=== PATIENT | female | born 1950 | race Caucasian/White ===

== ENCOUNTER 2018-02-20 10:17 | Emergency (ER) | payer MEDICARE, OTHER | END 2018-02-20 11:40 | disposition home or self-care (01) | LOC: FTE 10:17 | DX: G47.00 Insomnia, unspecified (principal); F41.9 Anxiety disorder, unspecified; J44.9 Chronic obstructive pulmonary disease, unspecified; Z87.891 Personal history of nicotine dependence | CPT/HCPCS: 99283 ==

== ENCOUNTER 2018-05-22 00:59 | Inpatient (IN) | payer MEDICARE, OTHER ==
[2018-05-22 01:33] LABS: ADD MAN DIFF? NO
[2018-05-22 01:37] LABS: WHITE BLOOD COUNT 7.5 10^3/ul (4.8-10.8)
[2018-05-22 01:37] LABS: BASOPHILS % 0.3 % (0.0-2.0); EOSINOPHILS # 0.2 10^3/ul (0.0-0.5); EOSINOPHILS % 2.8 % (0.0-7.0); HEMATOCRIT 42.6 % (37.0-47.0); HEMOGLOBIN 12.8 g/dl (12.0-16.0); LYMPHOCYTES # 1.8 10^3/ul (0.8-2.9); LYMPHOCYTES % 23.9 % (15.0-51.0); MEAN CORPUSCULAR HEMOGLOBIN 30.5 pg (29.0-33.0); MEAN CORPUSCULAR VOLUME 101.7 fl (82.0-101.0); MEAN PLATELET VOLUME 11.3 fl (7.4-10.4); MONOCYTE # 0.5 10^3/ul (0.3-0.9); NEUTROPHIL # 4.9 10^3/ul (1.6-7.5); NEUTROPHILS % 65.6 % (39.0-77.0); PLATELET COUNT 129 10^3/UL (140-415); RED BLOOD COUNT 4.19 10^6/ul (4.20-5.40); RED CELL DISTRIBUTION WIDTH 12.3 % (11.5-14.5)
[2018-05-22] MEDS: morphine 2 MG INJ IV (01:38)
[2018-05-22] MEDS: DEXTROSE 50% 50 ML SYRINGE IV ×2 (01:38→14:00)
[2018-05-22 01:42] LABS: POSITIVE DIFF @See below
[2018-05-22] MEDS: DIAZEPAM 5 MG/ML SYG IV ×2 (02:11→03:38)
[2018-05-22 02:29] LABS: ALANINE AMINOTRANSFERASE 49 IU/L (13-69); ALBUMIN 4.4 g/dl (3.3-4.9); ALKALINE PHOSPHATASE 60 IU/L (42-121); ANION GAP 8 (5-13); ASPARTATE AMINO TRANSFERASE 75 IU/L (15-46); BILIRUBIN,INDIRECT 0.1 mg/dl (0-1.1); BILIRUBIN,TOTAL 0.1 mg/dl (0.2-1.3); BLOOD UREA NITROGEN 24 mg/dl (7-20); CALCIUM 9.6 mg/dl (8.4-10.2); CARBON DIOXIDE 35 mmol/L (21-31); CHLORIDE 97 mmol/L (97-110); CREATININE 1.07 mg/dl (0.44-1.00); Estimated GFR 51 mL/min (>60); GLUCOSE 92 mg/dl (70-220); SODIUM 140 mmol/L (135-144); TOTAL PROTEIN 8.4 g/dl (6.1-8.1)
[2018-05-22 02:31] LABS: ACETAMINOPHEN < 10.0 ug/ml (10.0-30.0); ETHANOL < 10.0 mg/dl (0-0); SALICYLATE < 1.0 mg/dl (5.0-30.0)
[2018-05-22 02:40] LABS: TROPONIN-I < 0.012 ng/ml (0.000-0.120)
[2018-05-22 05:23] LABS: ADD UMIC NO; UR ASCORBIC ACID NEGATIVE (NEGATIVE); UR BILIRUBIN (Dip) NEGATIVE (NEGATIVE); UR BLOOD (Dip) NEGATIVE (NEGATIVE); UR CLARITY CLEAR (CLEAR); UR COLOR STRAW (YELLOW); UR GLUCOSE (Dip) 1+ mg/dL (NEGATIVE); UR KETONES (Dip) NEGATIVE (NEGATIVE); UR LEUKOCYTE ESTERASE (Dip) NEGATIVE Leu/ul (NEGATIVE); UR NITRITE (Dip) NEGATIVE (NEGATIVE); UR SPECIFIC GRAVITY (Dip) 1.005 (1.003-1.030); UR TOTAL PROTEIN (Dip) NEGATIVE (NEGATIVE); UR UROBILINOGEN (Dip) NEGATIVE (NEGATIVE)
[2018-05-22 05:41] LABS: AMPHETAMINE/METHAMPHETAMINE Negative (NEGATIVE); BARBITURATES Negative (NEGATIVE); BENZODIAZEPINES Negative (NEGATIVE); CANNABINOIDS Positive (NEGATIVE); COCAINE Negative (NEGATIVE); OPIATES Positive (NEGATIVE)
[2018-05-22] MEDS ORDERED: NACL 0.9% 3 ML SYG IV (06:30)
[2018-05-22] MEDS ORDERED: ONDANSETRON 4 MG INJ IV (06:30)
[2018-05-22] MEDS ORDERED: HALOPERIDOL 5 MG INJ IM (06:30)
[2018-05-22 06:33] LABS: LACTIC ACID 2.3 mmol/L (0.5-2.0)
[2018-05-22] MEDS: SOD CHLORIDE 0.9% 1,000 ML IV (07:36)
[2018-05-22] MEDS ORDERED: NON-FORMULARY/PATIENT OWN MED (Salmeterol Xinaf/Fluticasone* (Advair*) 1 INH) INHALATION (09:00)
[2018-05-22] MEDS: HALOPERIDOL 5 MG INJ IM (09:48)
[2018-05-22] MEDS ORDERED: ALBUTEROL/IPRATROPIUM (NEB) 3 ML AMP HHN (10:00)
[2018-05-22 10:33] LABS: HAAIG REFLEX REFLEX FILED
[2018-05-22] MEDS: ARFORMOTEROL TARTRATE 15MCG/2 ML AMP INH ×2 (11:20→20:00)
[2018-05-22] MEDS: BUDESONIDE (NEB) 0.5MG/2ML AMP INH ×2 (11:20→20:00)
[2018-05-22 12:15] LABS: HEPATITIS B SURFACE ANTIGEN NEGATIVE (NEGATIVE)
[2018-05-22 12:36] LABS: HEPATITIS C VIRAL ANTIBODY REACTIVE (NEGATIVE)
[2018-05-22] MEDS: ALBUTEROL HFA 8 GM INHALER INH ×4 (13:15→20:08)
[2018-05-22 13:23] LABS: LACTIC ACID 1.9 mmol/L (0.5-2.0)
[2018-05-22] MEDS ORDERED: DEXTROSE 50% 50 ML SYRINGE (13:26)
[2018-05-22] MEDS: GLUCOSE GEL 15 GRAM TUBE BUCCAL (13:30)
[2018-05-22] MEDS ORDERED: GLUCOSE GEL 15 GRAM TUBE (13:42)
[2018-05-22] MEDS ORDERED: QUETIAPINE 25 MG TAB NGT (14:30)
[2018-05-22 14:39] LABS: HEPATITIS B CORE ANTIBODY REACTIVE (NEGATIVE)
[2018-05-22] MEDS ORDERED: DEXTROSE 50% 50 ML SYRINGE IV (15:30)
[2018-05-22] MEDS ORDERED: GLUCAGON 1 MG INJ IM (15:30)
[2018-05-22] MEDS ORDERED: GLUCOSE GEL 15 GRAM TUBE PO ×2 (15:30)
[2018-05-22] MEDS: DEXTROSE 5%-0.9% NACL 1,000 ML IV (15:38)
[2018-05-22] MEDS: LIDOCAINE 1% (MPF) 5 ML VIAL SC (16:30)
[2018-05-22] MEDS: IOHEXOL 300MG/ML 150 ML BTL (17:54)
[2018-05-22] MEDS: SOD CHLORIDE 0.9% 0 ML (17:54)
[2018-05-23] MEDS: DIPHENHYDRAMINE 50 MG INJ IV (01:21)
[2018-05-23] MEDS: DEXTROSE 5%-0.9% NACL 1,000 ML IV ×2 (04:20→05:32)
[2018-05-23 05:55] LABS: ADD MAN DIFF? NO
[2018-05-23 05:59] LABS: BASOPHILS % 0.3 % (0.0-2.0); EOSINOPHILS # 0.1 10^3/ul (0.0-0.5); EOSINOPHILS % 0.8 % (0.0-7.0); HEMOGLOBIN 11.1 g/dl (12.0-16.0); LYMPHOCYTES # 2.4 10^3/ul (0.8-2.9); LYMPHOCYTES % 21.8 % (15.0-51.0); MEAN CORPUSCULAR HEMOGLOBIN 30.9 pg (29.0-33.0); MEAN CORPUSCULAR HGB CONC 30.8 g/dl (32.0-37.0); MEAN CORPUSCULAR VOLUME 100.3 fl (82.0-101.0); MONOCYTE # 0.7 10^3/ul (0.3-0.9); MONOCYTES % 6.6 % (0.0-11.0); NEUTROPHIL # 7.7 10^3/ul (1.6-7.5); NEUTROPHILS % 70.2 % (39.0-77.0); PLATELET COUNT 144 10^3/UL (140-415); RED BLOOD COUNT 3.59 10^6/ul (4.20-5.40); RED CELL DISTRIBUTION WIDTH 12.4 % (11.5-14.5)
[2018-05-23] MEDS: DIAZEPAM 5 MG/ML SYG IV (06:23)
[2018-05-23 06:41] LABS: Estimated GFR > 60 mL/min (>60)
[2018-05-23 06:42] LABS: ALANINE AMINOTRANSFERASE 37 IU/L (13-69); ALBUMIN 3.3 g/dl (3.3-4.9); ALKALINE PHOSPHATASE 58 IU/L (42-121); ANION GAP 1 (5-13); ASPARTATE AMINO TRANSFERASE 46 IU/L (15-46); BILIRUBIN,INDIRECT 0.3 mg/dl (0-1.1); BILIRUBIN,TOTAL 0.3 mg/dl (0.2-1.3); BLOOD UREA NITROGEN 11 mg/dl (7-20); CARBON DIOXIDE 31 mmol/L (21-31); CHLORIDE 113 mmol/L (97-110); CREATININE 0.69 mg/dl (0.44-1.00); GLUCOSE 392 mg/dl (70-220); MAGNESIUM 1.4 mg/dl (1.7-2.5); POTASSIUM 3.2 mmol/L (3.5-5.1); SODIUM 145 mmol/L (135-144); TOTAL PROTEIN 6.3 g/dl (6.1-8.1)
[2018-05-23 06:49] LABS: HEMOGLOBIN A1C 5.5 % (0-5.9)
[2018-05-23] MEDS: ARFORMOTEROL TARTRATE 15MCG/2 ML AMP INH ×2 (08:51→21:25)
[2018-05-23] MEDS: BUDESONIDE (NEB) 0.5MG/2ML AMP INH ×2 (08:52→21:26)
[2018-05-23] MEDS: POTASSIUM CHLORIDE 20 MEQ POWDER FOR ORAL SOLN PO (09:06)
[2018-05-23] MEDS: ALBUTEROL HFA 8 GM INHALER INH ×2 (09:06→13:13)
[2018-05-23] MEDS: MAGNESIUM SULFATE 2 GM/50 ML 50 ML IVPB (09:38)
[2018-05-24] MEDS: DIPHENHYDRAMINE 50 MG INJ IV ×3 (02:50→19:38)
[2018-05-24 06:04] LABS: ADD MAN DIFF? NO
[2018-05-24 06:16] LABS: WHITE BLOOD COUNT 8.6 10^3/ul (4.8-10.8)
[2018-05-24 06:16] LABS: BASOPHILS % 0.4 % (0.0-2.0); EOSINOPHILS # 0.2 10^3/ul (0.0-0.5); EOSINOPHILS % 1.9 % (0.0-7.0); HEMATOCRIT 36.8 % (37.0-47.0); HEMOGLOBIN 11.8 g/dl (12.0-16.0); LYMPHOCYTES # 2.1 10^3/ul (0.8-2.9); MEAN CORPUSCULAR HEMOGLOBIN 30.9 pg (29.0-33.0); MEAN CORPUSCULAR HGB CONC 32.1 g/dl (32.0-37.0); MEAN CORPUSCULAR VOLUME 96.3 fl (82.0-101.0); MEAN PLATELET VOLUME 11.6 fl (7.4-10.4); MONOCYTE # 0.7 10^3/ul (0.3-0.9); MONOCYTES % 7.6 % (0.0-11.0); NEUTROPHIL # 5.6 10^3/ul (1.6-7.5); NEUTROPHILS % 64.9 % (39.0-77.0); PLATELET COUNT 122 10^3/UL (140-415); RED BLOOD COUNT 3.82 10^6/ul (4.20-5.40); RED CELL DISTRIBUTION WIDTH 12.7 % (11.5-14.5)
[2018-05-24 06:29] LABS: ANION GAP 7 (5-13); BLOOD UREA NITROGEN 10 mg/dl (7-20); CALCIUM 8.4 mg/dl (8.4-10.2); CARBON DIOXIDE 32 mmol/L (21-31); CREATININE 0.74 mg/dl (0.44-1.00); Estimated GFR > 60 mL/min (>60); GLUCOSE 92 mg/dl (70-220); MAGNESIUM 2.1 mg/dl (1.7-2.5); PHOSPHORUS 3.1 mg/dl (2.5-4.9); POTASSIUM 3.6 mmol/L (3.5-5.1); SODIUM 141 mmol/L (135-144)
[2018-05-24 06:41] LABS: CHLORIDE 102 mmol/L (97-110)
[2018-05-24] MEDS: DEXTROSE 5%-0.9% NACL 1,000 ML IV ×2 (06:43→18:58)
[2018-05-24 07:13] LABS: POSITIVE DIFF @See below
[2018-05-24] MEDS: ARFORMOTEROL TARTRATE 15MCG/2 ML AMP INH ×2 (08:00→19:58)
[2018-05-24] MEDS: BUDESONIDE (NEB) 0.5MG/2ML AMP INH ×2 (08:00→19:58)
[2018-05-24] MEDS: ALBUTEROL HFA 8 GM INHALER INH ×3 (08:47→21:09)
[2018-05-24] MEDS: ACETAMINOPHEN 325 MG TAB PO ×2 (12:02→21:14)
[2018-05-25] MEDS: ALBUTEROL HFA 8 GM INHALER INH ×3 (01:06→14:00)
[2018-05-25] MEDS: BUDESONIDE (NEB) 0.5MG/2ML AMP INH ×3 (01:35→19:52)
[2018-05-25] MEDS: DIPHENHYDRAMINE 50 MG INJ IV (05:20)
[2018-05-25 05:57] LABS: ADD MAN DIFF? NO
[2018-05-25 06:13] LABS: WHITE BLOOD COUNT 6.2 10^3/ul (4.8-10.8)
[2018-05-25 06:13] LABS: BASOPHILS % 0.3 % (0.0-2.0); EOSINOPHILS # 0.3 10^3/ul (0.0-0.5); EOSINOPHILS % 4.2 % (0.0-7.0); HEMATOCRIT 31.8 % (37.0-47.0); HEMOGLOBIN 9.7 g/dl (12.0-16.0); LYMPHOCYTES # 1.4 10^3/ul (0.8-2.9); LYMPHOCYTES % 23.1 % (15.0-51.0); MEAN CORPUSCULAR HEMOGLOBIN 30.5 pg (29.0-33.0); MEAN CORPUSCULAR HGB CONC 30.5 g/dl (32.0-37.0); MEAN PLATELET VOLUME 11.1 fl (7.4-10.4); MONOCYTE # 0.5 10^3/ul (0.3-0.9); MONOCYTES % 8.6 % (0.0-11.0); NEUTROPHIL # 3.9 10^3/ul (1.6-7.5); NEUTROPHILS % 63.5 % (39.0-77.0); PLATELET COUNT 104 10^3/UL (140-415); RED BLOOD COUNT 3.18 10^6/ul (4.20-5.40); RED CELL DISTRIBUTION WIDTH 12.8 % (11.5-14.5)
[2018-05-25 06:24] LABS: ANION GAP 6 (5-13); BLOOD UREA NITROGEN 7 mg/dl (7-20); CALCIUM 7.2 mg/dl (8.4-10.2); CARBON DIOXIDE 26 mmol/L (21-31); CHLORIDE 110 mmol/L (97-110); CREATININE 0.61 mg/dl (0.44-1.00); Estimated GFR > 60 mL/min (>60); GLUCOSE 356 mg/dl (70-220); POTASSIUM 3.1 mmol/L (3.5-5.1); SODIUM 142 mmol/L (135-144)
[2018-05-25] MEDS: ARFORMOTEROL TARTRATE 15MCG/2 ML AMP INH ×2 (09:22→19:52)
[2018-05-25] MEDS: DEXTROSE 5%-0.9% NACL 1,000 ML IV (09:40)
[2018-05-25] MEDS: METHADONE (1 MG/ML 5 ML PO UD SYG) PO (12:00)
[2018-05-25] MEDS: POTASSIUM CHLORIDE (SR) 20 MEQ TAB PO (12:00)
[2018-05-25] MEDS ORDERED: METHADONE (1 MG/ML 5 ML PO UD SYG) PO (12:30)
== END 2018-05-25 21:20 | disposition home or self-care (01) | DRG 917 ==
LOC: E/R 00:59 → ICU 05:39 → 6WM 17:46
PROVIDERS: Family Medicine
DX: T40.1X1A Poisoning by heroin, accidental (unintentional), initial encounter (principal); G92 Toxic encephalopathy; N17.9 Acute kidney failure, unspecified; F11.20 Opioid dependence, uncomplicated; F11.10 Opioid abuse, uncomplicated; Y92.002 Bathroom of unspecified non-institutional (private) residence as the place of occurrence of the external cause; Z78.1 Physical restraint status; F12.90 Cannabis use, unspecified, uncomplicated; J44.9 Chronic obstructive pulmonary disease, unspecified; Z87.891 Personal history of nicotine dependence; F41.9 Anxiety disorder, unspecified
CPT/HCPCS: 36569; 70450; 71045; 76937; 80048; 80053; 80307; 81003; 82962; 83036; 83605; 83735; 84100; 84443; 84484; 85025; 86704; 86709; 86803; 87340; 87522; 93005; 94640; 94664; 97116; 97162; 97530

== ENCOUNTER 2018-06-09 21:15 | Emergency (ER) | payer MEDICARE, OTHER ==
[2018-06-10 00:34] LABS: ADD MAN DIFF? NO
[2018-06-10 00:35] LABS: BASOPHILS % 0.3 % (0.0-2.0); HEMATOCRIT 45.9 % (37.0-47.0); HEMOGLOBIN 14.5 g/dl (12.0-16.0); LYMPHOCYTES # 1.5 10^3/ul (0.8-2.9); LYMPHOCYTES % 15.8 % (15.0-51.0); MEAN CORPUSCULAR HEMOGLOBIN 30.3 pg (29.0-33.0); MEAN CORPUSCULAR HGB CONC 31.6 g/dl (32.0-37.0); MEAN PLATELET VOLUME 9.9 fl (7.4-10.4); MONOCYTE # 0.5 10^3/ul (0.3-0.9); MONOCYTES % 5.4 % (0.0-11.0); NEUTROPHIL # 7.3 10^3/ul (1.6-7.5); NEUTROPHILS % 78.2 % (39.0-77.0); PLATELET COUNT 348 10^3/UL (140-415); RED BLOOD COUNT 4.78 10^6/ul (4.20-5.40); RED CELL DISTRIBUTION WIDTH 13.2 % (11.5-14.5)
[2018-06-10 00:35] LABS: WHITE BLOOD COUNT 9.4 10^3/ul (4.8-10.8)
[2018-06-10 01:01] LABS: ANION GAP 13 (5-13); BLOOD UREA NITROGEN 18 mg/dl (7-20); CARBON DIOXIDE 32 mmol/L (21-31); CHLORIDE 90 mmol/L (97-110); CREATININE 0.72 mg/dl (0.44-1.00); Estimated GFR > 60 mL/min (>60); GLUCOSE 105 mg/dl (70-220); POTASSIUM 4.1 mmol/L (3.5-5.1); SODIUM 135 mmol/L (135-144)
[2018-06-10] MEDS: OXYCODONE/ACETAMINOPHEN (10/325) TAB PO (01:39)
== END 2018-06-10 02:30 | disposition home or self-care (01) ==
LOC: E/R 06-10 02:30
DX: F11.23 Opioid dependence with withdrawal (principal); J44.9 Chronic obstructive pulmonary disease, unspecified; Z87.891 Personal history of nicotine dependence; Z79.82 Long term (current) use of aspirin
CPT/HCPCS: 71045; 80048; 85025; 93005; 99284-25

== ENCOUNTER 2018-06-10 03:18 | Emergency (ER) | payer SELFPAY, OTHER, MEDICARE | END 2018-06-10 04:02 | disposition left against medical advice (07) | LOC: E/R 03:18 | DX: Z53.21 Procedure and treatment not carried out due to patient leaving prior to being seen by health care provider (principal) ==

== ENCOUNTER 2018-07-14 20:31 | Inpatient (IN) | payer MEDICARE, OTHER ==
[2018-07-15] MEDS ORDERED: LORAZEPAM 2 MG INJ IV
[2018-07-15] MEDS ORDERED: BISACODYL (EC) 5 MG TAB PO
[2018-07-15] MEDS ORDERED: DOCUSATE SODIUM 100 MG CAP PO
[2018-07-15] MEDS ORDERED: ONDANSETRON 4 MG INJ IV
[2018-07-15] MEDS ORDERED: NACL 0.9% 3 ML SYG IV
[2018-07-15] MEDS ORDERED: METHADONE (1 MG/ML 5 ML PO UD SYG) PO (00:30)
[2018-07-15] MEDS: morphine 2 MG INJ IV (00:38)
[2018-07-15] MEDS: BACLOFEN 10 MG TAB PO ×3 (00:47→21:40)
[2018-07-15] MEDS: predniSONE 20 MG TAB PO ×2 (00:47→08:35)
[2018-07-15] MEDS: HALOPERIDOL 5 MG INJ IM ×2 (01:27→03:00)
[2018-07-15] MEDS: IPRATROPIUM (NEB) 0.5 MG/2.5 ML AMP HHN ×6 (02:16→21:46)
[2018-07-15] MEDS: LEVALBUTEROL (NEB) 1.25 MG/0.5 ML AMP HHN ×7 (02:16→21:47)
[2018-07-15] MEDS: DIPHENHYDRAMINE 50 MG INJ IM (03:00)
[2018-07-15] MEDS ORDERED: PENDING SANTYL ORDER FOR WOUND CARE XX (03:00)
[2018-07-15] MEDS: PANTOPRAZOLE (EC) 40 MG TAB PO (05:58)
[2018-07-15 06:40] LABS: WHITE BLOOD COUNT 11.4 10^3/ul (4.8-10.8)
[2018-07-15 06:40] LABS: ABNORMAL IP MESSAGE 1; HEMATOCRIT 36.2 % (37.0-47.0); HEMOGLOBIN 11.2 g/dl (12.0-16.0); MEAN CORPUSCULAR HEMOGLOBIN 31.6 pg (29.0-33.0); MEAN CORPUSCULAR HGB CONC 30.9 g/dl (32.0-37.0); MEAN CORPUSCULAR VOLUME 102.3 fl (82.0-101.0); MEAN PLATELET VOLUME 12.2 fl (7.4-10.4); NUCLEATED RED BLOOD CELLS% 0.6 /100WBC (0.0-0.0); PLATELET COUNT 80 10^3/UL (140-415); RED BLOOD COUNT 3.54 10^6/ul (4.20-5.40); RED CELL DISTRIBUTION WIDTH 17.2 % (11.5-14.5)
[2018-07-15 06:45] LABS: POSITIVE DIFF @See below
[2018-07-15 06:49] LABS: ADD MAN DIFF? YES
[2018-07-15 06:50] LABS: ALBUMIN 3.3 g/dl (3.3-4.9); ALBUMIN/GLOBULIN RATIO 1.26; ALKALINE PHOSPHATASE 82 IU/L (42-121); ANION GAP 8 (5-13); BILIRUBIN,INDIRECT 0.8 mg/dl (0-1.1); BILIRUBIN,TOTAL 0.8 mg/dl (0.2-1.3); BLOOD UREA NITROGEN 52 mg/dl (7-20); CALCIUM 7.8 mg/dl (8.4-10.2); CARBON DIOXIDE 30 mmol/L (21-31); CHLORIDE 103 mmol/L (97-110); CREATININE 1.22 mg/dl (0.44-1.00); Estimated GFR 44 mL/min (>60); GLUCOSE 122 mg/dl (70-220); POTASSIUM 4.2 mmol/L (3.5-5.1); SODIUM 141 mmol/L (135-144); TOTAL PROTEIN 5.9 g/dl (6.1-8.1)
[2018-07-15 07:28] LABS: ANISOCYTOSIS 1+ (0-0); BAND NEUTROPHILS #M 0.2 10^3/ul (0.0-0.6); BAND NEUTROPHILS % (M) 2 % (0-4); BURR CELLS 1+ (0-0); ERYTHROBLAST% (NRBC) (M) 2 % (0-0); HYPOCHROMASIA 1+ (0-0); LYMPHOCYTES #M 0.1 10^3/ul (0.8-2.9); LYMPHOCYTES % (M) 1 % (15-51); METAMYELOCYTES #M 0.1 10^3/ul (0.0-0.0); METAMYELOCYTES %M 1 % (0-0); OVALOCYTES 2+ (0-0); PLATELET ESTIMATE DECREASED; POIKILOCYTOSIS 2+ (0-0); POLYCHROMASIA 2+ (0-0); SEGMENTED NEUTROPHILS (M) % 96 % (39-77); SMUDGE%M 2 % (0-0); TARGET CELLS 1+ (0-0)
[2018-07-15 07:58] LABS: ALANINE AMINOTRANSFERASE 4549 IU/L (13-69); ASPARTATE AMINO TRANSFERASE 2259 IU/L (15-46)
[2018-07-15] MEDS: DOCUSATE SODIUM 100 MG CAP PO ×2 (08:35→21:39)
[2018-07-15] MEDS: AMLODIPINE 5 MG TAB PO (08:35)
[2018-07-15] MEDS: ASPIRIN (EC) 81 MG TAB PO (08:36)
[2018-07-15] MEDS: hydrOXYzine HCL 10 MG TAB PO ×3 (08:36→21:40)
[2018-07-15] MEDS: SERTRALINE 100 MG TAB PO (09:57)
[2018-07-15] MEDS: FLUTICASONE/VILANTEROL 100-25 INH (09:58)
[2018-07-15] MEDS: CEFEPIME 1GM/50 ML (PMX) 50 ML IVPB ×2 (09:58→21:40)
[2018-07-15 10:11] LABS: HAAIG REFLEX REFLEX FILED
[2018-07-15 10:37] LABS: AMMONIA < 9 umol/l (9-30)
[2018-07-15 10:37] LABS: INR 1.67; PARTIAL THROMBOPLASTIN TIME 27.3 Sec (23.0-35.0); PROTIME 19.8 Sec (11.9-14.9); PT RATIO 1.5
[2018-07-15 11:06] LABS: CREATINE KINASE 85 IU/L (23-200)
[2018-07-15 11:09] LABS: HEPATITIS B SURFACE ANTIGEN NEGATIVE (NEGATIVE)
[2018-07-15 11:19] LABS: CK INDEX 4.7; CK-MB 4.01 ng/ml (0.0-2.4)
[2018-07-15 11:27] LABS: HEPATITIS B CORE ANTIBODY NEGATIVE (NEGATIVE)
[2018-07-15 11:27] LABS: HEPATITIS B SURFACE ANTIBODY POSITIVE (NEGATIVE)
[2018-07-15 11:32] LABS: TROPONIN-I 0.448 ng/ml (0.000-0.120)
[2018-07-15] MEDS: RIFAXIMIN 550 MG TAB PO ×2 (12:19→21:40)
[2018-07-15 12:51] LABS: AMPHETAMINE/METHAMPHETAMINE Negative (NEGATIVE); BARBITURATES Negative (NEGATIVE); BENZODIAZEPINES Negative (NEGATIVE); CANNABINOIDS Negative (NEGATIVE); COCAINE Negative (NEGATIVE)
[2018-07-15 12:57] LABS: OPIATES Positive (NEGATIVE)
[2018-07-15 13:13] LABS: HEPATITIS C VIRAL ANTIBODY REACTIVE (NEGATIVE)
[2018-07-15] MEDS: PHYTONADIONE 10 MG in DEXTROSE 5% 50 ML IVPB (13:37)
[2018-07-15] MEDS: LACTULOSE 30ML CUP PO ×2 (13:37→21:40)
[2018-07-15 14:02] LABS: CREATINE KINASE 66 IU/L (23-200)
[2018-07-15 14:13] LABS: CK INDEX 5.3; CK-MB 3.51 ng/ml (0.0-2.4)
[2018-07-15 14:21] LABS: TROPONIN-I 0.407 ng/ml (0.000-0.120)
[2018-07-16] MEDS: IPRATROPIUM (NEB) 0.5 MG/2.5 ML AMP HHN ×6 (01:48→20:16)
[2018-07-16] MEDS: LEVALBUTEROL (NEB) 1.25 MG/0.5 ML AMP HHN ×6 (01:48→20:16)
[2018-07-16 05:14] LABS: ADD MAN DIFF? NO
[2018-07-16 05:19] LABS: ABNORMAL IP MESSAGE 1; BASOPHILS % 0.2 % (0.0-2.0); HEMATOCRIT 40.2 % (37.0-47.0); HEMOGLOBIN 12.4 g/dl (12.0-16.0); LYMPHOCYTES # 0.4 10^3/ul (0.8-2.9); LYMPHOCYTES % 3.5 % (15.0-51.0); MEAN CORPUSCULAR HEMOGLOBIN 31.1 pg (29.0-33.0); MEAN CORPUSCULAR HGB CONC 30.8 g/dl (32.0-37.0); MEAN CORPUSCULAR VOLUME 100.8 fl (82.0-101.0); MONOCYTE # 0.6 10^3/ul (0.3-0.9); MONOCYTES % 5.3 % (0.0-11.0); NEUTROPHILS % 90.5 % (39.0-77.0); NUCLEATED RED BLOOD CELLS% 0.3 /100WBC (0.0-0.0); PLATELET COUNT 113 10^3/UL (140-415); RED BLOOD COUNT 3.99 10^6/ul (4.20-5.40); RED CELL DISTRIBUTION WIDTH 17.2 % (11.5-14.5)
[2018-07-16 05:30] LABS: POSITIVE DIFF @See below
[2018-07-16 06:05] LABS: PHOSPHORUS 2.2 mg/dl (2.5-4.9)
[2018-07-16 06:05] LABS: MAGNESIUM 2.2 mg/dl (1.7-2.5)
[2018-07-16 06:07] LABS: ALBUMIN 3.1 g/dl (3.3-4.9); ALBUMIN/GLOBULIN RATIO 1.14; ALKALINE PHOSPHATASE 75 IU/L (42-121); ANION GAP 7 (5-13); ASPARTATE AMINO TRANSFERASE 741 IU/L (15-46); BILIRUBIN,INDIRECT 0.7 mg/dl (0-1.1); BILIRUBIN,TOTAL 0.7 mg/dl (0.2-1.3); BLOOD UREA NITROGEN 43 mg/dl (7-20); CARBON DIOXIDE 31 mmol/L (21-31); CHLORIDE 105 mmol/L (97-110); CREATININE 0.88 mg/dl (0.44-1.00); Estimated GFR > 60 mL/min (>60); GLUCOSE 134 mg/dl (70-220); POTASSIUM 3.8 mmol/L (3.5-5.1); SODIUM 143 mmol/L (135-144); TOTAL PROTEIN 5.8 g/dl (6.1-8.1)
[2018-07-16 06:20] LABS: ALANINE AMINOTRANSFERASE 2982 IU/L (13-69)
[2018-07-16] MEDS: PANTOPRAZOLE (EC) 40 MG TAB PO (06:26)
[2018-07-16] MEDS: LACTULOSE 30ML CUP PO ×3 (06:26→21:02)
[2018-07-16] MEDS: BACLOFEN 10 MG TAB PO ×2 (08:43→21:02)
[2018-07-16] MEDS: predniSONE 20 MG TAB PO (08:43)
[2018-07-16] MEDS: AMLODIPINE 5 MG TAB PO (08:43)
[2018-07-16] MEDS: ASPIRIN 81 MG TAB PO (08:44)
[2018-07-16] MEDS: FLUTICASONE/VILANTEROL 100-25 INH (08:44)
[2018-07-16] MEDS: RIFAXIMIN 550 MG TAB PO ×2 (08:44→21:00)
[2018-07-16] MEDS: CEFEPIME 1GM/50 ML (PMX) 50 ML IVPB ×2 (08:44→21:03)
[2018-07-16] MEDS: SERTRALINE 100 MG TAB PO (08:44)
[2018-07-16] MEDS: DOCUSATE SODIUM 100 MG CAP PO ×2 (08:44→21:02)
[2018-07-16] MEDS: hydrOXYzine HCL 10 MG TAB PO ×3 (08:44→21:00)
[2018-07-17] MEDS: IPRATROPIUM (NEB) 0.5 MG/2.5 ML AMP HHN ×6 (00:19→23:03)
[2018-07-17] MEDS: LEVALBUTEROL (NEB) 1.25 MG/0.5 ML AMP HHN ×6 (00:20→23:04)
[2018-07-17] MEDS: LACTULOSE 30ML CUP PO ×3 (06:00→22:00)
[2018-07-17 06:09] LABS: ADD MAN DIFF? NO
[2018-07-17] MEDS: PANTOPRAZOLE (EC) 40 MG TAB PO (06:16)
[2018-07-17 06:21] LABS: WHITE BLOOD COUNT 14.5 10^3/ul (4.8-10.8)
[2018-07-17 06:21] LABS: HEMATOCRIT 42.3 % (37.0-47.0); HEMOGLOBIN 12.9 g/dl (12.0-16.0); LYMPHOCYTES # 0.8 10^3/ul (0.8-2.9); LYMPHOCYTES % 5.4 % (15.0-51.0); MEAN CORPUSCULAR HGB CONC 30.5 g/dl (32.0-37.0); MEAN CORPUSCULAR VOLUME 101.7 fl (82.0-101.0); MEAN PLATELET VOLUME 12.4 fl (7.4-10.4); NEUTROPHIL # 12.6 10^3/ul (1.6-7.5); NEUTROPHILS % 87.2 % (39.0-77.0); NUCLEATED RED BLOOD CELLS% 0.2 /100WBC (0.0-0.0); PLATELET COUNT 109 10^3/UL (140-415); RED BLOOD COUNT 4.16 10^6/ul (4.20-5.40); RED CELL DISTRIBUTION WIDTH 17.4 % (11.5-14.5)
[2018-07-17 06:42] LABS: ALBUMIN 3.2 g/dl (3.3-4.9); ALBUMIN/GLOBULIN RATIO 1.18; ALKALINE PHOSPHATASE 78 IU/L (42-121); ANION GAP 6 (5-13); ASPARTATE AMINO TRANSFERASE 293 IU/L (15-46); BILIRUBIN,INDIRECT 0.8 mg/dl (0-1.1); BILIRUBIN,TOTAL 0.8 mg/dl (0.2-1.3); BLOOD UREA NITROGEN 36 mg/dl (7-20); CALCIUM 8.1 mg/dl (8.4-10.2); CARBON DIOXIDE 32 mmol/L (21-31); CHLORIDE 106 mmol/L (97-110); Estimated GFR > 60 mL/min (>60); GLUCOSE 104 mg/dl (70-220); POTASSIUM 3.7 mmol/L (3.5-5.1); SODIUM 144 mmol/L (135-144); TOTAL PROTEIN 5.9 g/dl (6.1-8.1)
[2018-07-17 07:01] LABS: PHOSPHORUS 1.4 mg/dl (2.5-4.9)
[2018-07-17 07:01] LABS: MAGNESIUM 2.3 mg/dl (1.7-2.5)
[2018-07-17 07:26] LABS: ALANINE AMINOTRANSFERASE 2132 IU/L (13-69)
[2018-07-17] MEDS: DOCUSATE SODIUM 100 MG CAP PO ×2 (09:16→20:29)
[2018-07-17] MEDS: hydrOXYzine HCL 10 MG TAB PO ×3 (09:16→20:28)
[2018-07-17] MEDS: RIFAXIMIN 550 MG TAB PO ×2 (09:16→20:29)
[2018-07-17] MEDS: SERTRALINE 100 MG TAB PO (09:16)
[2018-07-17] MEDS: ASPIRIN 81 MG TAB PO (09:16)
[2018-07-17] MEDS: CEFEPIME 1GM/50 ML (PMX) 50 ML IVPB ×2 (09:17→20:30)
[2018-07-17] MEDS: FLUTICASONE/VILANTEROL 100-25 INH (09:17)
[2018-07-17] MEDS: predniSONE 20 MG TAB PO (09:17)
[2018-07-17] MEDS: AMLODIPINE 5 MG TAB PO (09:17)
[2018-07-17] MEDS: BACLOFEN 10 MG TAB PO ×2 (09:17→20:29)
[2018-07-17] MEDS ORDERED: METHADONE 10 MG TAB PO (14:30)
[2018-07-17] MEDS: METHADONE (1 MG/ML 5 ML PO UD SYG) PO (15:31)
[2018-07-17] MEDS: POTASSIUM PHOSPHATE 15 MM in SOD CHLORIDE 0.9% 250 ML IVPB (16:29)
[2018-07-18] MEDS ORDERED: LORAZEPAM 2 MG INJ IV (02:00)
[2018-07-18] MEDS: HALOPERIDOL 5 MG INJ IM (02:00)
[2018-07-18] MEDS: PANTOPRAZOLE (EC) 40 MG TAB PO (05:31)
[2018-07-18 05:38] LABS: ADD MAN DIFF? NO
[2018-07-18] MEDS: LACTULOSE 30ML CUP PO ×3 (05:46→21:01)
[2018-07-18 05:48] LABS: BASOPHILS % 0.2 % (0.0-2.0); EOSINOPHILS % 0.3 % (0.0-7.0); HEMATOCRIT 42.1 % (37.0-47.0); HEMOGLOBIN 12.8 g/dl (12.0-16.0); LYMPHOCYTES # 1.3 10^3/ul (0.8-2.9); LYMPHOCYTES % 10.7 % (15.0-51.0); MEAN CORPUSCULAR HEMOGLOBIN 30.9 pg (29.0-33.0); MEAN CORPUSCULAR HGB CONC 30.4 g/dl (32.0-37.0); MEAN CORPUSCULAR VOLUME 101.7 fl (82.0-101.0); MEAN PLATELET VOLUME 11.9 fl (7.4-10.4); MONOCYTE # 0.8 10^3/ul (0.3-0.9); MONOCYTES % 6.8 % (0.0-11.0); NEUTROPHIL # 9.7 10^3/ul (1.6-7.5); NEUTROPHILS % 81.6 % (39.0-77.0); NUCLEATED RED BLOOD CELLS% 0.2 /100WBC (0.0-0.0); PLATELET COUNT 108 10^3/UL (140-415); RED BLOOD COUNT 4.14 10^6/ul (4.20-5.40)
[2018-07-18 05:48] LABS: WHITE BLOOD COUNT 11.9 10^3/ul (4.8-10.8)
[2018-07-18 06:32] LABS: ALBUMIN/GLOBULIN RATIO 1.15; ALKALINE PHOSPHATASE 68 IU/L (42-121); ANION GAP 4 (5-13); ASPARTATE AMINO TRANSFERASE 146 IU/L (15-46); BILIRUBIN,INDIRECT 1.2 mg/dl (0-1.1); BILIRUBIN,TOTAL 1.2 mg/dl (0.2-1.3); BLOOD UREA NITROGEN 26 mg/dl (7-20); CALCIUM 7.8 mg/dl (8.4-10.2); CARBON DIOXIDE 32 mmol/L (21-31); CHLORIDE 104 mmol/L (97-110); CREATININE 0.73 mg/dl (0.44-1.00); Estimated GFR > 60 mL/min (>60); GLUCOSE 75 mg/dl (70-220); POTASSIUM 4.3 mmol/L (3.5-5.1); SODIUM 140 mmol/L (135-144); TOTAL PROTEIN 5.6 g/dl (6.1-8.1)
[2018-07-18 06:37] LABS: HEMOGLOBIN A1C 5.3 % (0-5.9)
[2018-07-18] MEDS: IPRATROPIUM (NEB) 0.5 MG/2.5 ML AMP HHN ×2 (08:00→16:25)
[2018-07-18] MEDS: LEVALBUTEROL (NEB) 1.25 MG/0.5 ML AMP HHN ×2 (08:00→16:25)
[2018-07-18] MEDS: predniSONE 20 MG TAB PO (08:12)
[2018-07-18] MEDS: BACLOFEN 10 MG TAB PO ×2 (08:12→21:00)
[2018-07-18] MEDS: DOCUSATE SODIUM 100 MG CAP PO (08:12)
[2018-07-18] MEDS: CEFEPIME 1GM/50 ML (PMX) 50 ML IVPB (08:13)
[2018-07-18] MEDS: RIFAXIMIN 550 MG TAB PO ×2 (08:13→21:00)
[2018-07-18] MEDS: hydrOXYzine HCL 10 MG TAB PO ×4 (08:13→21:00)
[2018-07-18] MEDS: ASPIRIN (EC) 81 MG TAB PO (08:13)
[2018-07-18] MEDS: AMLODIPINE 5 MG TAB PO (08:13)
[2018-07-18] MEDS: SERTRALINE 50 MG TAB PO (08:13)
[2018-07-18] MEDS: FLUTICASONE/VILANTEROL 100-25 INH (08:14)
[2018-07-18 08:18] LABS: ALPHA FETOPROTEIN 4.95 IU/L (0.00-7.21)
[2018-07-18 09:02] LABS: ALANINE AMINOTRANSFERASE 1442 IU/L (13-69)
[2018-07-18] MEDS: METHADONE (1 MG/ML 5 ML PO UD SYG) PO (10:33)
[2018-07-18 10:51] LABS: MITOCHONDRIAL TB NEGATIVE (NEGATIVE); SMOOTH MUSCLE AB SCREEN NEGATIVE (NEGATIVE)
[2018-07-18 14:01] LABS: ANA SCREEN NEGATIVE (NEGATIVE)
[2018-07-18] MEDS: POTASSIUM PHOSPHATE 15 MM in SOD CHLORIDE 0.9% 250 ML IVPB (14:10)
[2018-07-18 14:17] LABS: FOLATE > 20.0 ng/ml (2.8-20.0)
[2018-07-19] MEDS ORDERED: HEPARIN 1000 UNITS/ML 10 ML INJ IV ×2 (01:00)
[2018-07-19] MEDS: IPRATROPIUM (NEB) 0.5 MG/2.5 ML AMP HHN ×3 (01:00→16:07)
[2018-07-19] MEDS: LEVALBUTEROL (NEB) 1.25 MG/0.5 ML AMP HHN ×3 (01:01→16:07)
[2018-07-19] MEDS: HEPARIN 1000 UNITS/ML 10 ML INJ IV (02:08)
[2018-07-19] MEDS: HEPARIN 25000 UNITS/250 ML 250 ML IV ×5 (02:09→19:00)
[2018-07-19 05:48] LABS: ADD MAN DIFF? NO
[2018-07-19 05:51] LABS: BASOPHILS % 0.2 % (0.0-2.0); EOSINOPHILS # 0.1 10^3/ul (0.0-0.5); EOSINOPHILS % 0.7 % (0.0-7.0); HEMATOCRIT 41.1 % (37.0-47.0); HEMOGLOBIN 12.8 g/dl (12.0-16.0); LYMPHOCYTES # 1.3 10^3/ul (0.8-2.9); LYMPHOCYTES % 9.4 % (15.0-51.0); MEAN CORPUSCULAR HEMOGLOBIN 31.3 pg (29.0-33.0); MEAN CORPUSCULAR HGB CONC 31.1 g/dl (32.0-37.0); MEAN CORPUSCULAR VOLUME 100.5 fl (82.0-101.0); MEAN PLATELET VOLUME 12.2 fl (7.4-10.4); MONOCYTE # 0.8 10^3/ul (0.3-0.9); MONOCYTES % 6.2 % (0.0-11.0); NEUTROPHIL # 11.2 10^3/ul (1.6-7.5); PLATELET COUNT 129 10^3/UL (140-415); RED BLOOD COUNT 4.09 10^6/ul (4.20-5.40); RED CELL DISTRIBUTION WIDTH 16.7 % (11.5-14.5)
[2018-07-19 05:51] LABS: WHITE BLOOD COUNT 13.5 10^3/ul (4.8-10.8)
[2018-07-19] MEDS: LACTULOSE 30ML CUP PO ×3 (06:00→22:41)
[2018-07-19] MEDS: LEVOFLOXACIN 750 MG TABLET PO (06:01)
[2018-07-19] MEDS: PANTOPRAZOLE (EC) 40 MG TAB PO (06:01)
[2018-07-19 06:16] LABS: AMMONIA 24 umol/l (9-30)
[2018-07-19 06:33] LABS: ALBUMIN/GLOBULIN RATIO 1.11; ALKALINE PHOSPHATASE 74 IU/L (42-121); ANION GAP 4 (5-13); ASPARTATE AMINO TRANSFERASE 98 IU/L (15-46); BILIRUBIN,INDIRECT 1.3 mg/dl (0-1.1); BILIRUBIN,TOTAL 1.3 mg/dl (0.2-1.3); BLOOD UREA NITROGEN 18 mg/dl (7-20); CARBON DIOXIDE 30 mmol/L (21-31); CHLORIDE 105 mmol/L (97-110); CREATININE 0.61 mg/dl (0.44-1.00); Estimated GFR > 60 mL/min (>60); GLUCOSE 80 mg/dl (70-220); POTASSIUM 4.1 mmol/L (3.5-5.1); SODIUM 139 mmol/L (135-144); TOTAL PROTEIN 5.7 g/dl (6.1-8.1)
[2018-07-19 06:41] LABS: ALANINE AMINOTRANSFERASE 1084 IU/L (13-69)
[2018-07-19] MEDS: SERTRALINE 50 MG TAB PO (08:26)
[2018-07-19] MEDS: RIFAXIMIN 550 MG TAB PO ×3 (08:26→20:42)
[2018-07-19] MEDS: ASPIRIN (EC) 81 MG TAB PO (08:26)
[2018-07-19] MEDS: predniSONE 20 MG TAB PO (08:26)
[2018-07-19] MEDS: AMLODIPINE 5 MG TAB PO (08:26)
[2018-07-19] MEDS: hydrOXYzine HCL 10 MG TAB PO ×3 (08:26→20:42)
[2018-07-19] MEDS: BACLOFEN 10 MG TAB PO ×2 (08:26→20:42)
[2018-07-19] MEDS: FLUTICASONE/VILANTEROL 100-25 INH (08:27)
[2018-07-19 09:15] LABS: PARTIAL THROMBOPLASTIN TIME 152.9 Sec (23.0-35.0)
[2018-07-19] MEDS: METHADONE (1 MG/ML 5 ML PO UD SYG) PO (09:50)
[2018-07-19 11:38] LABS: FOLATE > 20.0 ng/ml (2.8-20.0)
[2018-07-19 16:21] LABS: PARTIAL THROMBOPLASTIN TIME 54.4 Sec (23.0-35.0)
[2018-07-19 16:57] LABS: RAPID PLASMA REAGIN NONREACTIVE (NR)
[2018-07-19] MEDS: BISACODYL (EC) 5 MG TAB PO (18:32)
[2018-07-19] MEDS: APIXABAN 5 MG TABLET PO (20:42)
[2018-07-19] MEDS: OXYMETAZOLINE 0.05% 15 ML NAS SPRAY NASAL (20:43)
[2018-07-20] MEDS: LEVALBUTEROL (NEB) 1.25 MG/0.5 ML AMP HHN ×3 (00:12→16:12)
[2018-07-20] MEDS: IPRATROPIUM (NEB) 0.5 MG/2.5 ML AMP HHN ×3 (00:12→16:12)
[2018-07-20 01:45] LABS: PARTIAL THROMBOPLASTIN TIME 27.7 Sec (23.0-35.0)
[2018-07-20] MEDS: PANTOPRAZOLE (EC) 40 MG TAB PO (05:39)
[2018-07-20] MEDS: LACTULOSE 30ML CUP PO ×3 (05:41→21:58)
[2018-07-20 06:10] LABS: ADD MAN DIFF? NO
[2018-07-20 06:18] LABS: BASOPHILS % 0.1 % (0.0-2.0); EOSINOPHILS # 0.1 10^3/ul (0.0-0.5); EOSINOPHILS % 0.5 % (0.0-7.0); HEMATOCRIT 41.1 % (37.0-47.0); HEMOGLOBIN 12.7 g/dl (12.0-16.0); LYMPHOCYTES # 1.3 10^3/ul (0.8-2.9); LYMPHOCYTES % 9.7 % (15.0-51.0); MEAN CORPUSCULAR HEMOGLOBIN 30.5 pg (29.0-33.0); MEAN CORPUSCULAR HGB CONC 30.9 g/dl (32.0-37.0); MEAN CORPUSCULAR VOLUME 98.8 fl (82.0-101.0); MEAN PLATELET VOLUME 11.7 fl (7.4-10.4); MONOCYTE # 0.9 10^3/ul (0.3-0.9); MONOCYTES % 6.5 % (0.0-11.0); NEUTROPHIL # 11.3 10^3/ul (1.6-7.5); NEUTROPHILS % 82.8 % (39.0-77.0); PLATELET COUNT 157 10^3/UL (140-415); RED BLOOD COUNT 4.16 10^6/ul (4.20-5.40); RED CELL DISTRIBUTION WIDTH 16.5 % (11.5-14.5)
[2018-07-20 06:18] LABS: WHITE BLOOD COUNT 13.6 10^3/ul (4.8-10.8)
[2018-07-20 06:47] LABS: MAGNESIUM 1.7 mg/dl (1.7-2.5)
[2018-07-20 06:54] LABS: ALANINE AMINOTRANSFERASE 762 IU/L (13-69); ALBUMIN 3.1 g/dl (3.3-4.9); ALBUMIN/GLOBULIN RATIO 1.06; ALKALINE PHOSPHATASE 67 IU/L (42-121); ANION GAP 5 (5-13); ASPARTATE AMINO TRANSFERASE 70 IU/L (15-46); BILIRUBIN,INDIRECT 1.2 mg/dl (0-1.1); BILIRUBIN,TOTAL 1.2 mg/dl (0.2-1.3); BLOOD UREA NITROGEN 15 mg/dl (7-20); CALCIUM 8.3 mg/dl (8.4-10.2); CARBON DIOXIDE 34 mmol/L (21-31); CHLORIDE 99 mmol/L (97-110); CREATININE 0.63 mg/dl (0.44-1.00); Estimated GFR > 60 mL/min (>60); GLUCOSE 86 mg/dl (70-220); POTASSIUM 3.7 mmol/L (3.5-5.1); SODIUM 138 mmol/L (135-144)
[2018-07-20] MEDS: METHADONE (1 MG/ML 5 ML PO UD SYG) PO (10:45)
[2018-07-20] MEDS: FLUTICASONE/VILANTEROL 100-25 INH (10:46)
[2018-07-20] MEDS: hydrOXYzine HCL 10 MG TAB PO ×3 (10:47→21:00)
[2018-07-20] MEDS: BACLOFEN 10 MG TAB PO ×2 (10:47→21:55)
[2018-07-20] MEDS: predniSONE 20 MG TAB PO (10:47)
[2018-07-20] MEDS: APIXABAN 5 MG TABLET PO ×2 (10:47→21:56)
[2018-07-20] MEDS: OXYMETAZOLINE 0.05% 15 ML NAS SPRAY NASAL ×2 (10:47→21:00)
[2018-07-20] MEDS: SERTRALINE 50 MG TAB PO (10:48)
[2018-07-20] MEDS: AMLODIPINE 5 MG TAB PO (10:48)
[2018-07-20] MEDS: RIFAXIMIN 550 MG TAB PO (10:48)
[2018-07-20] MEDS: ACETAMINOPHEN 325 MG TAB PO (16:24)
[2018-07-20 19:46] LABS: NIL 0.08 IU/mL; QUANTIFERON(R)-TB GOLD NEGATIVE (NEGATIVE); TB-NIL <0.00 IU/mL; TB2-NIL <0.00 IU/mL
[2018-07-21] MEDS: LEVALBUTEROL (NEB) 1.25 MG/0.5 ML AMP HHN ×3 (00:42→16:08)
[2018-07-21] MEDS: IPRATROPIUM (NEB) 0.5 MG/2.5 ML AMP HHN ×3 (00:42→16:07)
[2018-07-21] MEDS: LACTULOSE 30ML CUP PO ×3 (06:00→21:11)
[2018-07-21] MEDS: PANTOPRAZOLE (EC) 40 MG TAB PO (06:00)
[2018-07-21] MEDS: BACLOFEN 10 MG TAB PO ×2 (09:27→21:10)
[2018-07-21] MEDS: RIFAXIMIN 550 MG TAB PO ×2 (09:27→21:10)
[2018-07-21] MEDS: hydrOXYzine HCL 10 MG TAB PO ×3 (09:27→21:10)
[2018-07-21] MEDS: CHOLECALCIFEROL 2,000 UNIT CAP PO (09:28)
[2018-07-21] MEDS: SERTRALINE 50 MG TAB PO (09:28)
[2018-07-21] MEDS: APIXABAN 5 MG TABLET PO ×2 (09:28→21:10)
[2018-07-21] MEDS: predniSONE 20 MG TAB PO (09:28)
[2018-07-21] MEDS: AMLODIPINE 5 MG TAB PO (09:28)
[2018-07-21] MEDS: FLUTICASONE/VILANTEROL 100-25 INH (09:29)
[2018-07-21] MEDS: OXYMETAZOLINE 0.05% 15 ML NAS SPRAY NASAL ×2 (09:29→21:11)
[2018-07-21] MEDS: METHADONE (1 MG/ML 5 ML PO UD SYG) PO (11:01)
[2018-07-21] MEDS: METHADONE 10 MG TAB PO (11:02)
[2018-07-21] MEDS ORDERED: LEVALBUTEROL (NEB) 1.25 MG/0.5 ML AMP HHN (21:00)
[2018-07-21] MEDS ORDERED: IPRATROPIUM (NEB) 0.5 MG/2.5 ML AMP HHN (21:00)
[2018-07-22] MEDS: PANTOPRAZOLE (EC) 40 MG TAB PO (05:41)
[2018-07-22] MEDS: LACTULOSE 30ML CUP PO ×3 (05:42→22:00)
[2018-07-22] MEDS: METHADONE 10 MG TAB PO (09:32)
[2018-07-22] MEDS: METHADONE (1 MG/ML 5 ML PO UD SYG) PO (09:33)
[2018-07-22] MEDS: BACLOFEN 10 MG TAB PO ×2 (09:34→20:43)
[2018-07-22] MEDS: SERTRALINE 50 MG TAB PO (09:34)
[2018-07-22] MEDS: CHOLECALCIFEROL 2,000 UNIT CAP PO (09:34)
[2018-07-22] MEDS: APIXABAN 5 MG TABLET PO ×2 (09:34→20:42)
[2018-07-22] MEDS: RIFAXIMIN 550 MG TAB PO ×2 (09:34→20:42)
[2018-07-22] MEDS: AMLODIPINE 5 MG TAB PO (09:35)
[2018-07-22] MEDS: FLUTICASONE/VILANTEROL 100-25 INH (09:35)
[2018-07-22] MEDS: OXYMETAZOLINE 0.05% 15 ML NAS SPRAY NASAL ×2 (09:35→20:42)
[2018-07-22] MEDS: hydrOXYzine HCL 10 MG TAB PO ×4 (09:37→11:22)
[2018-07-22] MEDS: ALPRAZOLAM 0.25 MG TAB PO (12:59)
[2018-07-22] MEDS: CALCIUM CARBONATE 1.25 GM TAB PO ×2 (12:59→20:42)
[2018-07-22] MEDS: DOCUSATE SODIUM 100 MG CAP PO (20:42)
[2018-07-23 05:23] LABS: ADD MAN DIFF? NO
[2018-07-23 05:28] LABS: WHITE BLOOD COUNT 10.2 10^3/ul (4.8-10.8)
[2018-07-23 05:28] LABS: BASOPHILS % 0.2 % (0.0-2.0); EOSINOPHILS # 0.2 10^3/ul (0.0-0.5); EOSINOPHILS % 1.6 % (0.0-7.0); HEMOGLOBIN 12.7 g/dl (12.0-16.0); LYMPHOCYTES # 1.6 10^3/ul (0.8-2.9); LYMPHOCYTES % 15.6 % (15.0-51.0); MEAN CORPUSCULAR HEMOGLOBIN 30.6 pg (29.0-33.0); MEAN CORPUSCULAR VOLUME 98.8 fl (82.0-101.0); MEAN PLATELET VOLUME 12.2 fl (7.4-10.4); MONOCYTE # 0.7 10^3/ul (0.3-0.9); MONOCYTES % 6.7 % (0.0-11.0); NEUTROPHIL # 7.7 10^3/ul (1.6-7.5); NEUTROPHILS % 75.6 % (39.0-77.0); PLATELET COUNT 182 10^3/UL (140-415); RED BLOOD COUNT 4.15 10^6/ul (4.20-5.40); RED CELL DISTRIBUTION WIDTH 17.1 % (11.5-14.5)
[2018-07-23] MEDS: PANTOPRAZOLE (EC) 40 MG TAB PO (05:35)
[2018-07-23] MEDS: LACTULOSE 30ML CUP PO ×3 (05:36→22:18)
[2018-07-23 05:59] LABS: PHOSPHORUS 4.5 mg/dl (2.5-4.9)
[2018-07-23 05:59] LABS: MAGNESIUM 1.7 mg/dl (1.7-2.5)
[2018-07-23 06:03] LABS: ALANINE AMINOTRANSFERASE 345 IU/L (13-69); ALBUMIN 3.1 g/dl (3.3-4.9); ALBUMIN/GLOBULIN RATIO 1.19; ALKALINE PHOSPHATASE 71 IU/L (42-121); ANION GAP 5 (5-13); ASPARTATE AMINO TRANSFERASE 55 IU/L (15-46); BILIRUBIN,INDIRECT 0.6 mg/dl (0-1.1); BILIRUBIN,TOTAL 0.6 mg/dl (0.2-1.3); BLOOD UREA NITROGEN 20 mg/dl (7-20); CALCIUM 8.9 mg/dl (8.4-10.2); CARBON DIOXIDE 30 mmol/L (21-31); CHLORIDE 105 mmol/L (97-110); CREATININE 0.69 mg/dl (0.44-1.00); Estimated GFR > 60 mL/min (>60); GLUCOSE 92 mg/dl (70-220); POTASSIUM 3.3 mmol/L (3.5-5.1); SODIUM 140 mmol/L (135-144); TOTAL PROTEIN 5.7 g/dl (6.1-8.1)
[2018-07-23] MEDS: OXYMETAZOLINE 0.05% 15 ML NAS SPRAY NASAL ×2 (08:41→20:07)
[2018-07-23] MEDS: FLUTICASONE/VILANTEROL 100-25 INH (08:42)
[2018-07-23] MEDS: METHADONE 10 MG TAB PO (08:43)
[2018-07-23] MEDS: METHADONE (1 MG/ML 5 ML PO UD SYG) PO (08:44)
[2018-07-23] MEDS: APIXABAN 5 MG TABLET PO ×2 (08:45→20:03)
[2018-07-23] MEDS: RIFAXIMIN 550 MG TAB PO ×2 (08:46→20:03)
[2018-07-23] MEDS: SERTRALINE 50 MG TAB PO (08:46)
[2018-07-23] MEDS: hydrOXYzine HCL 10 MG TAB PO ×3 (08:46→20:03)
[2018-07-23] MEDS: CHOLECALCIFEROL 2,000 UNIT CAP PO (08:46)
[2018-07-23] MEDS: BACLOFEN 10 MG TAB PO ×2 (08:46→20:03)
[2018-07-23] MEDS: DOCUSATE SODIUM 100 MG CAP PO ×2 (08:46→20:03)
[2018-07-23] MEDS: CALCIUM CARBONATE 1.25 GM TAB PO ×2 (08:46→20:03)
[2018-07-23] MEDS: AMLODIPINE 5 MG TAB PO (08:46)
[2018-07-23] MEDS: POTASSIUM CHLORIDE (SR) 20 MEQ TAB PO (12:24)
[2018-07-23] MEDS: ACETAMINOPHEN 325 MG TAB PO (16:56)
[2018-07-24] MEDS: PANTOPRAZOLE (EC) 40 MG TAB PO (05:34)
[2018-07-24] MEDS: LACTULOSE 30ML CUP PO ×3 (05:35→21:31)
[2018-07-24] MEDS: SERTRALINE 50 MG TAB PO (09:44)
[2018-07-24] MEDS: BACLOFEN 10 MG TAB PO ×2 (09:44→21:27)
[2018-07-24] MEDS: CALCIUM CARBONATE 1.25 GM TAB PO ×2 (09:44→21:26)
[2018-07-24] MEDS: APIXABAN 5 MG TABLET PO ×2 (09:44→21:27)
[2018-07-24] MEDS: hydrOXYzine HCL 10 MG TAB PO ×3 (09:44→21:27)
[2018-07-24] MEDS: CHOLECALCIFEROL 2,000 UNIT CAP PO (09:44)
[2018-07-24] MEDS: AMLODIPINE 5 MG TAB PO (09:45)
[2018-07-24] MEDS: RIFAXIMIN 550 MG TAB PO ×2 (09:45→21:26)
[2018-07-24] MEDS: METHADONE 10 MG TAB PO (09:45)
[2018-07-24] MEDS: DOCUSATE SODIUM 100 MG CAP PO ×2 (09:45→21:26)
[2018-07-24] MEDS: FLUTICASONE/VILANTEROL 100-25 INH ×2 (09:46→10:17)
[2018-07-24] MEDS: METHADONE (1 MG/ML 5 ML PO UD SYG) PO (09:46)
[2018-07-24] MEDS: OXYMETAZOLINE 0.05% 15 ML NAS SPRAY NASAL ×3 (09:46→21:00)
[2018-07-24] MEDS: ACETAMINOPHEN 325 MG TAB PO (16:00)
[2018-07-25] MEDS: PANTOPRAZOLE (EC) 40 MG TAB PO (06:00)
[2018-07-25] MEDS: LACTULOSE 30ML CUP PO ×4 (06:00→22:00)
[2018-07-25] MEDS: OXYMETAZOLINE 0.05% 15 ML NAS SPRAY NASAL ×2 (09:00→21:00)
[2018-07-25] MEDS: DOCUSATE SODIUM 100 MG CAP PO ×2 (09:15→21:07)
[2018-07-25] MEDS: hydrOXYzine HCL 10 MG TAB PO ×3 (09:15→21:08)
[2018-07-25] MEDS: RIFAXIMIN 550 MG TAB PO ×2 (09:15→21:08)
[2018-07-25] MEDS: BACLOFEN 10 MG TAB PO ×2 (09:15→21:07)
[2018-07-25] MEDS: SERTRALINE 50 MG TAB PO (09:16)
[2018-07-25] MEDS: CHOLECALCIFEROL 2,000 UNIT CAP PO (09:16)
[2018-07-25] MEDS: AMLODIPINE 5 MG TAB PO (09:16)
[2018-07-25] MEDS: METHADONE 10 MG TAB PO (09:16)
[2018-07-25] MEDS: CALCIUM CARBONATE 1.25 GM TAB PO ×2 (09:16→21:08)
[2018-07-25] MEDS: APIXABAN 5 MG TABLET PO ×2 (09:16→21:07)
[2018-07-25] MEDS: METHADONE (1 MG/ML 5 ML PO UD SYG) PO (09:17)
[2018-07-25] MEDS: ACETAMINOPHEN 325 MG TAB PO (14:13)
[2018-07-25] MEDS: ZOLPIDEM 5 MG TAB PO (23:32)
[2018-07-26 05:40] LABS: ADD MAN DIFF? NO
[2018-07-26] MEDS: PANTOPRAZOLE (EC) 40 MG TAB PO (05:46)
[2018-07-26] MEDS: LACTULOSE 30ML CUP PO ×3 (05:47→21:14)
[2018-07-26 05:53] LABS: BASOPHILS % 0.3 % (0.0-2.0); EOSINOPHILS # 0.2 10^3/ul (0.0-0.5); EOSINOPHILS % 2.4 % (0.0-7.0); HEMATOCRIT 39.7 % (37.0-47.0); HEMOGLOBIN 12.3 g/dl (12.0-16.0); LYMPHOCYTES # 1.4 10^3/ul (0.8-2.9); LYMPHOCYTES % 15.9 % (15.0-51.0); MEAN CORPUSCULAR HEMOGLOBIN 31.1 pg (29.0-33.0); MEAN CORPUSCULAR VOLUME 100.3 fl (82.0-101.0); MEAN PLATELET VOLUME 12.3 fl (7.4-10.4); MONOCYTE # 0.6 10^3/ul (0.3-0.9); MONOCYTES % 7.2 % (0.0-11.0); NEUTROPHIL # 6.6 10^3/ul (1.6-7.5); NEUTROPHILS % 73.8 % (39.0-77.0); PLATELET COUNT 161 10^3/UL (140-415); RED BLOOD COUNT 3.96 10^6/ul (4.20-5.40); RED CELL DISTRIBUTION WIDTH 16.4 % (11.5-14.5)
[2018-07-26 05:53] LABS: WHITE BLOOD COUNT 8.9 10^3/ul (4.8-10.8)
[2018-07-26 06:01] LABS: MAGNESIUM 1.6 mg/dl (1.7-2.5)
[2018-07-26 06:01] LABS: PHOSPHORUS 3.8 mg/dl (2.5-4.9)
[2018-07-26 06:28] LABS: ANION GAP 6 (5-13); BLOOD UREA NITROGEN 12 mg/dl (7-20); CALCIUM 9.1 mg/dl (8.4-10.2); CARBON DIOXIDE 29 mmol/L (21-31); CHLORIDE 104 mmol/L (97-110); CREATININE 0.67 mg/dl (0.44-1.00); Estimated GFR > 60 mL/min (>60); GLUCOSE 90 mg/dl (70-220); POTASSIUM 3.6 mmol/L (3.5-5.1); SODIUM 139 mmol/L (135-144)
[2018-07-26] MEDS: CALCIUM CARBONATE 1.25 GM TAB PO ×2 (08:54→21:09)
[2018-07-26] MEDS: DOCUSATE SODIUM 100 MG CAP PO ×2 (08:54→21:09)
[2018-07-26] MEDS: APIXABAN 5 MG TABLET PO ×2 (08:54→21:09)
[2018-07-26] MEDS: CHOLECALCIFEROL 2,000 UNIT CAP PO (08:54)
[2018-07-26] MEDS: SERTRALINE 50 MG TAB PO (08:54)
[2018-07-26] MEDS: hydrOXYzine HCL 10 MG TAB PO ×3 (08:54→21:09)
[2018-07-26] MEDS: RIFAXIMIN 550 MG TAB PO ×2 (08:55→21:09)
[2018-07-26] MEDS: BACLOFEN 10 MG TAB PO ×2 (08:55→21:09)
[2018-07-26] MEDS: METHADONE 10 MG TAB PO ×2 (08:55→09:41)
[2018-07-26] MEDS: AMLODIPINE 5 MG TAB PO (08:55)
[2018-07-26] MEDS: METHADONE (1 MG/ML 5 ML PO UD SYG) PO (08:56)
[2018-07-26] MEDS: OXYMETAZOLINE 0.05% 15 ML NAS SPRAY NASAL ×2 (09:00→21:00)
[2018-07-26] MEDS: FLUTICASONE/VILANTEROL 100-25 INH (09:00)
[2018-07-26] MEDS: MAGNESIUM SULFATE 2 GM/50 ML 50 ML IVPB (12:28)
[2018-07-27] MEDS: ZOLPIDEM 5 MG TAB PO ×2 (00:30→22:56)
[2018-07-27] MEDS: LACTULOSE 30ML CUP PO ×2 (06:23→14:00)
[2018-07-27] MEDS: PANTOPRAZOLE (EC) 40 MG TAB PO (06:23)
[2018-07-27] MEDS: METHADONE (1 MG/ML 5 ML PO UD SYG) PO (08:46)
[2018-07-27] MEDS: METHADONE 10 MG TAB PO (08:48)
[2018-07-27] MEDS: OXYMETAZOLINE 0.05% 15 ML NAS SPRAY NASAL ×2 (08:50→20:46)
[2018-07-27] MEDS: FLUTICASONE/VILANTEROL 100-25 INH (08:50)
[2018-07-27] MEDS: APIXABAN 5 MG TABLET PO ×2 (08:51→20:46)
[2018-07-27] MEDS: CHOLECALCIFEROL 2,000 UNIT CAP PO (08:51)
[2018-07-27] MEDS: hydrOXYzine HCL 10 MG TAB PO ×3 (08:51→20:45)
[2018-07-27] MEDS: RIFAXIMIN 550 MG TAB PO ×2 (08:51→20:46)
[2018-07-27] MEDS: BACLOFEN 10 MG TAB PO ×2 (08:51→20:45)
[2018-07-27] MEDS: SERTRALINE 50 MG TAB PO (08:51)
[2018-07-27] MEDS: CALCIUM CARBONATE 1.25 GM TAB PO ×2 (08:51→20:46)
[2018-07-27] MEDS: DOCUSATE SODIUM 100 MG CAP PO ×2 (08:51→20:45)
[2018-07-27] MEDS: AMLODIPINE 5 MG TAB PO (08:51)
[2018-07-27] MEDS: AL HYDROX/MG HYDROX/SIMETH 30 ML CUP PO (08:56)
[2018-07-27] MEDS: ACETAMINOPHEN 325 MG TAB PO (15:59)
[2018-07-27] MEDS: MAGNESIUM HYDROXIDE 30ML CUP PO (20:46)
[2018-07-28] MEDS: PANTOPRAZOLE (EC) 40 MG TAB PO (05:53)
[2018-07-28] MEDS: RIFAXIMIN 550 MG TAB PO ×2 (08:53→21:52)
[2018-07-28] MEDS: FLUTICASONE/VILANTEROL 100-25 INH (08:53)
[2018-07-28] MEDS: APIXABAN 5 MG TABLET PO ×2 (08:53→21:52)
[2018-07-28] MEDS: OXYMETAZOLINE 0.05% 15 ML NAS SPRAY NASAL ×2 (08:53→21:56)
[2018-07-28] MEDS: CALCIUM CARBONATE 1.25 GM TAB PO ×2 (08:53→21:51)
[2018-07-28] MEDS: METHADONE (1 MG/ML 5 ML PO UD SYG) PO (08:55)
[2018-07-28] MEDS: hydrOXYzine HCL 10 MG TAB PO ×3 (08:56→21:55)
[2018-07-28] MEDS: CHOLECALCIFEROL 2,000 UNIT CAP PO (08:56)
[2018-07-28] MEDS: SERTRALINE 50 MG TAB PO (08:56)
[2018-07-28] MEDS: METHADONE 10 MG TAB PO (08:56)
[2018-07-28] MEDS: BACLOFEN 10 MG TAB PO ×2 (08:57→21:51)
[2018-07-28] MEDS: AMLODIPINE 5 MG TAB PO (08:57)
[2018-07-28] MEDS: DOCUSATE SODIUM 100 MG CAP PO ×2 (08:58→21:52)
[2018-07-28] MEDS: ACETAMINOPHEN 325 MG TAB PO (19:48)
[2018-07-29] MEDS: ZOLPIDEM 5 MG TAB PO ×2 (00:17→23:41)
[2018-07-29] MEDS: PANTOPRAZOLE (EC) 40 MG TAB PO (05:50)
[2018-07-29] MEDS: MAGNESIUM HYDROXIDE 30ML CUP PO (05:53)
[2018-07-29] MEDS: AMLODIPINE 5 MG TAB PO (09:00)
[2018-07-29] MEDS: CHOLECALCIFEROL 2,000 UNIT CAP PO (10:27)
[2018-07-29] MEDS: CALCIUM CARBONATE 1.25 GM TAB PO ×2 (10:27→20:50)
[2018-07-29] MEDS: METHADONE 10 MG TAB PO (10:27)
[2018-07-29] MEDS: SERTRALINE 50 MG TAB PO (10:28)
[2018-07-29] MEDS: APIXABAN 5 MG TABLET PO ×2 (10:28→20:51)
[2018-07-29] MEDS: RIFAXIMIN 550 MG TAB PO ×2 (10:28→20:51)
[2018-07-29] MEDS: BACLOFEN 10 MG TAB PO ×2 (10:28→20:52)
[2018-07-29] MEDS: DOCUSATE SODIUM 100 MG CAP PO ×2 (10:28→20:50)
[2018-07-29] MEDS: hydrOXYzine HCL 10 MG TAB PO ×3 (10:29→21:21)
[2018-07-29] MEDS: METHADONE (1 MG/ML 5 ML PO UD SYG) PO (10:43)
[2018-07-29] MEDS: FLUTICASONE/VILANTEROL 100-25 INH (10:46)
[2018-07-29] MEDS: OXYMETAZOLINE 0.05% 15 ML NAS SPRAY NASAL ×2 (10:47→20:52)
[2018-07-29] MEDS: ACETAMINOPHEN 325 MG TAB PO (14:10)
[2018-07-30] MEDS: PANTOPRAZOLE (EC) 40 MG TAB PO (05:38)
[2018-07-30] MEDS: MAGNESIUM HYDROXIDE 30ML CUP PO (05:38)
[2018-07-30] MEDS: RIFAXIMIN 550 MG TAB PO ×2 (08:58→20:31)
[2018-07-30] MEDS: APIXABAN 5 MG TABLET PO ×2 (08:59→20:30)
[2018-07-30] MEDS: METHADONE (1 MG/ML 5 ML PO UD SYG) PO (08:59)
[2018-07-30] MEDS: METHADONE 10 MG TAB PO (08:59)
[2018-07-30] MEDS: FLUTICASONE/VILANTEROL 100-25 INH (09:00)
[2018-07-30] MEDS: hydrOXYzine HCL 10 MG TAB PO ×3 (09:00→20:31)
[2018-07-30] MEDS: OXYMETAZOLINE 0.05% 15 ML NAS SPRAY NASAL ×2 (09:00→20:31)
[2018-07-30] MEDS: SERTRALINE 50 MG TAB PO (09:00)
[2018-07-30] MEDS: AMLODIPINE 5 MG TAB PO (09:00)
[2018-07-30] MEDS: DOCUSATE SODIUM 100 MG CAP PO ×2 (09:00→20:30)
[2018-07-30] MEDS: CALCIUM CARBONATE 1.25 GM TAB PO ×2 (09:00→20:30)
[2018-07-30] MEDS: BACLOFEN 10 MG TAB PO ×2 (09:00→20:31)
[2018-07-30] MEDS: CHOLECALCIFEROL 2,000 UNIT CAP PO (09:00)
[2018-07-31] MEDS: ZOLPIDEM 5 MG TAB PO (00:30)
[2018-07-31] MEDS: PANTOPRAZOLE (EC) 40 MG TAB PO (06:36)
[2018-07-31] MEDS: DOCUSATE SODIUM 100 MG CAP PO (09:33)
[2018-07-31] MEDS: AMLODIPINE 5 MG TAB PO (09:36)
[2018-07-31] MEDS: CALCIUM CARBONATE 1.25 GM TAB PO ×2 (09:36→20:19)
[2018-07-31] MEDS: APIXABAN 5 MG TABLET PO ×2 (09:37→20:19)
[2018-07-31] MEDS: hydrOXYzine HCL 10 MG TAB PO ×3 (09:37→21:22)
[2018-07-31] MEDS: SERTRALINE 50 MG TAB PO (09:37)
[2018-07-31] MEDS: CHOLECALCIFEROL 2,000 UNIT CAP PO (09:37)
[2018-07-31] MEDS: METHADONE 10 MG TAB PO (09:37)
[2018-07-31] MEDS: BACLOFEN 10 MG TAB PO ×2 (09:37→21:22)
[2018-07-31] MEDS: OXYMETAZOLINE 0.05% 15 ML NAS SPRAY NASAL ×2 (09:37→20:23)
[2018-07-31] MEDS: RIFAXIMIN 550 MG TAB PO ×2 (09:37→21:22)
[2018-07-31] MEDS: METHADONE (1 MG/ML 5 ML PO UD SYG) PO (09:37)
[2018-07-31] MEDS: IOHEXOL 100 ML (09:38)
[2018-07-31] MEDS: SOD CHLORIDE 0.9% 100 ML (09:38)
[2018-07-31] MEDS: FLUTICASONE/VILANTEROL 100-25 INH (09:38)
[2018-07-31] MEDS: ACETAMINOPHEN 325 MG TAB PO (19:37)
[2018-07-31] MEDS: ALPRAZOLAM 0.25 MG TAB PO (20:19)
[2018-07-31] MEDS: LACTOBACILLUS RHAMNOSUS CAP PO (20:19)
[2018-08-01] MEDS: PANTOPRAZOLE (EC) 40 MG TAB PO (06:26)
[2018-08-01] MEDS: FLUTICASONE/VILANTEROL 100-25 INH ×2 (08:29→12:38)
[2018-08-01] MEDS: OXYMETAZOLINE 0.05% 15 ML NAS SPRAY NASAL ×2 (08:30→21:00)
[2018-08-01] MEDS: BACLOFEN 10 MG TAB PO ×2 (08:30→20:59)
[2018-08-01] MEDS: METHADONE (1 MG/ML 5 ML PO UD SYG) PO (08:30)
[2018-08-01] MEDS: METHADONE 10 MG TAB PO (08:30)
[2018-08-01] MEDS: DOCUSATE SODIUM 100 MG CAP PO ×2 (08:36→22:29)
[2018-08-01] MEDS: RIFAXIMIN 550 MG TAB PO ×2 (08:36→20:59)
[2018-08-01] MEDS: LACTOBACILLUS RHAMNOSUS CAP PO ×2 (08:36→20:59)
[2018-08-01] MEDS: hydrOXYzine HCL 10 MG TAB PO ×3 (08:36→20:59)
[2018-08-01] MEDS: SERTRALINE 50 MG TAB PO (08:36)
[2018-08-01] MEDS: CHOLECALCIFEROL 2,000 UNIT CAP PO (08:36)
[2018-08-01] MEDS: AMLODIPINE 5 MG TAB PO (08:36)
[2018-08-01] MEDS: CALCIUM CARBONATE 1.25 GM TAB PO ×2 (08:36→20:59)
[2018-08-01] MEDS: APIXABAN 5 MG TABLET PO ×2 (08:37→20:59)
[2018-08-01] MEDS ORDERED: GUAIFENESIN/DM 5ML CUP PO (14:30)
[2018-08-02] MEDS: PANTOPRAZOLE (EC) 40 MG TAB PO (06:14)
[2018-08-02] MEDS: OXYMETAZOLINE 0.05% 15 ML NAS SPRAY NASAL ×2 (09:00→20:47)
[2018-08-02] MEDS: CALCIUM CARBONATE 1.25 GM TAB PO ×2 (09:51→20:45)
[2018-08-02] MEDS: CHOLECALCIFEROL 2,000 UNIT CAP PO (09:51)
[2018-08-02] MEDS: BACLOFEN 10 MG TAB PO ×2 (09:51→21:45)
[2018-08-02] MEDS: SERTRALINE 50 MG TAB PO (09:51)
[2018-08-02] MEDS: RIFAXIMIN 550 MG TAB PO ×2 (09:51→21:45)
[2018-08-02] MEDS: hydrOXYzine HCL 10 MG TAB PO ×3 (09:51→21:45)
[2018-08-02] MEDS: DOCUSATE SODIUM 100 MG CAP PO ×2 (09:52→20:45)
[2018-08-02] MEDS: LACTOBACILLUS RHAMNOSUS CAP PO ×2 (09:52→21:45)
[2018-08-02] MEDS: APIXABAN 5 MG TABLET PO ×2 (09:52→20:45)
[2018-08-02] MEDS: AMLODIPINE 5 MG TAB PO (10:02)
[2018-08-02] MEDS: METHADONE 10 MG TAB PO (10:03)
[2018-08-02] MEDS: METHADONE (1 MG/ML 5 ML PO UD SYG) PO (10:04)
[2018-08-02] MEDS: FLUTICASONE/VILANTEROL 100-25 INH (10:05)
[2018-08-02] MEDS: ACETAMINOPHEN 325 MG TAB PO (13:50)
[2018-08-03] MEDS: PANTOPRAZOLE (EC) 40 MG TAB PO (06:14)
[2018-08-03] MEDS: hydrOXYzine HCL 10 MG TAB PO ×2 (09:23→12:56)
[2018-08-03] MEDS: METHADONE (1 MG/ML 5 ML PO UD SYG) PO (09:23)
[2018-08-03] MEDS: METHADONE 10 MG TAB PO (09:23)
[2018-08-03] MEDS: RIFAXIMIN 550 MG TAB PO (09:24)
[2018-08-03] MEDS: SERTRALINE 50 MG TAB PO (09:24)
[2018-08-03] MEDS: CALCIUM CARBONATE 1.25 GM TAB PO (09:24)
[2018-08-03] MEDS: BACLOFEN 10 MG TAB PO (09:24)
[2018-08-03] MEDS: LACTOBACILLUS RHAMNOSUS CAP PO (09:24)
[2018-08-03] MEDS: APIXABAN 5 MG TABLET PO (09:24)
[2018-08-03] MEDS: CHOLECALCIFEROL 2,000 UNIT CAP PO (09:24)
[2018-08-03] MEDS: DOCUSATE SODIUM 100 MG CAP PO (09:24)
[2018-08-03] MEDS: OXYMETAZOLINE 0.05% 15 ML NAS SPRAY NASAL (09:25)
[2018-08-03] MEDS: FLUTICASONE/VILANTEROL 100-25 INH (09:25)
[2018-08-03] MEDS: AMLODIPINE 5 MG TAB PO (09:25)
[2018-08-03] MEDS: MAGNESIUM HYDROXIDE 30ML CUP PO (09:35)
[2018-08-03] MEDS: traMADol 50 MG TAB PO (13:38)
== END 2018-08-03 16:55 | DRG 190 ==
LOC: 6WM 20:31 → 2NE 07-21 22:55 → 6WM 22:06
PROC: 3E0F7GC Introduction of Other Therapeutic Substance into Respiratory Tract, Via Natural or Artificial Opening (ICD-10-PCS; principal; 2018-07-14)
DX: J44.1 Chronic obstructive pulmonary disease with (acute) exacerbation (principal); I26.99 Other pulmonary embolism without acute cor pulmonale; I21.A1 Myocardial infarction type 2; J18.9 Pneumonia, unspecified organism; G93.41 Metabolic encephalopathy; J96.22 Acute and chronic respiratory failure with hypercapnia; J96.21 Acute and chronic respiratory failure with hypoxia; N17.9 Acute kidney failure, unspecified; F11.20 Opioid dependence, uncomplicated; D68.4 Acquired coagulation factor deficiency; F23 Brief psychotic disorder; J44.0 Chronic obstructive pulmonary disease with (acute) lower respiratory infection; B19.20 Unspecified viral hepatitis C without hepatic coma; D69.59 Other secondary thrombocytopenia; D50.9 Iron deficiency anemia, unspecified; F41.9 Anxiety disorder, unspecified; G89.29 Other chronic pain; I27.20 Pulmonary hypertension, unspecified; I12.9 Hypertensive chronic kidney disease with stage 1 through stage 4 chronic kidney disease, or unspecified chronic kidney disease; J20.9 Acute bronchitis, unspecified; K70.30 Alcoholic cirrhosis of liver without ascites; K72.90 Hepatic failure, unspecified without coma; K59.00 Constipation, unspecified; M19.172 Post-traumatic osteoarthritis, left ankle and foot; N18.9 Chronic kidney disease, unspecified; R62.7 Adult failure to thrive; R53.81 Other malaise; R13.10 Dysphagia, unspecified; R04.0 Epistaxis; S92.412A Displaced fracture of proximal phalanx of left great toe, initial encounter for closed fracture; S92.342A Displaced fracture of fourth metatarsal bone, left foot, initial encounter for closed fracture; W22.8XXA Striking against or struck by other objects, initial encounter; Z66 Do not resuscitate; Z87.891 Personal history of nicotine dependence; Z99.81 Dependence on supplemental oxygen; Z68.21 Body mass index [BMI] 21.0-21.9, adult; Z79.01 Long term (current) use of anticoagulants; Z79.82 Long term (current) use of aspirin
CPT/HCPCS: 71045; 71250; 71275; 73620; 76705; 80048; 80053; 80307; 82105; 82140; 82550; 82553; 82607; 82746; 83036; 83735; 84100; 84443; 84484; 85025; 85610; 85730; 86038; 86255; 86480; 86592; 86704; 86706; 86709; 86803; 87081; 87340; 87522; 92526; 92610; 93306; 93970; 94640; 94664; 97110; 97116; 97162; 97530

== ENCOUNTER 2018-10-26 00:42 | Inpatient (IN) | payer MEDICARE, OTHER ==
[2018-10-26] MEDS: SOD CHLORIDE 0.9% IV (02:02)
[2018-10-26] MEDS: CEFEPIME 2GM/50 ML (PMX) 50 ML IVPB (02:03)
[2018-10-26 02:18] LABS: AADO2 Arterial 391.9 mmHg (7.0-24.0); Allen Test ACCEPTAB; Arterial Base Excess -3.7 mmol/L (-3.0-3); Arterial Blood Gas Oxygen Sat 99.3 mmHG (95.0-98.0); Arterial COHb 0.3 % (0.0-3.0); Arterial Fraction of Oxyhgb 98.7 % (93.0-99.0); Arterial HCO3 22.9 mmol/L (22.0-26.0); Arterial MetHb 0.3 % (0.0-1.5); Arterial pCO2 47.6 mmhg (35-45); Blood Gas IEPAP 18/5; MODE MASK - BIPAP; Site Right Radial
[2018-10-26] MEDS: VANCOMYCIN 1 GM (PMX) 250 ML IVPB (02:44)
[2018-10-26] MEDS: DEXAMETHASONE 10 MG/ML 1 ML INJ IV (03:25)
[2018-10-26 03:31] LABS: ADD MAN DIFF? NO
[2018-10-26 03:49] LABS: LACTIC ACID 4.9 mmol/L (0.5-2.0)
[2018-10-26 03:51] LABS: INR 1.36; PROTIME 16.9 Sec (11.9-14.9); PT RATIO 1.3
[2018-10-26 03:52] LABS: PARTIAL THROMBOPLASTIN TIME 25.4 Sec (23.0-35.0)
[2018-10-26 03:55] LABS: ALANINE AMINOTRANSFERASE 160 IU/L (13-69); ALBUMIN 3.5 g/dl (3.3-4.9); ALKALINE PHOSPHATASE 70 IU/L (42-121); ANION GAP 11 (5-13); ASPARTATE AMINO TRANSFERASE 355 IU/L (15-46); BILIRUBIN,INDIRECT 0.6 mg/dl (0-1.1); BILIRUBIN,TOTAL 0.6 mg/dl (0.2-1.3); BLOOD UREA NITROGEN 72 mg/dl (7-20); CARBON DIOXIDE 25 mmol/L (21-31); CHLORIDE 114 mmol/L (97-110); GLUCOSE 97 mg/dl (70-220); SODIUM 150 mmol/L (135-144); TOTAL PROTEIN 6.4 g/dl (6.1-8.1)
[2018-10-26 04:00] LABS: Estimated GFR 24 mL/min (>60)
[2018-10-26] MEDS ORDERED: ACETAMINOPHEN 325 MG TAB PO (04:00)
[2018-10-26] MEDS ORDERED: ONDANSETRON 4 MG INJ IV (04:00)
[2018-10-26 04:01] LABS: CREATININE 2.07 mg/dl (0.44-1.00)
[2018-10-26 04:05] LABS: WHITE BLOOD COUNT 19.4 10^3/ul (4.8-10.8)
[2018-10-26 04:05] LABS: BASOPHILS % 0.2 % (0.0-2.0); HEMATOCRIT 40.4 % (37.0-47.0); HEMOGLOBIN 12.3 g/dl (12.0-16.0); LYMPHOCYTES # 1.6 10^3/ul (0.8-2.9); LYMPHOCYTES % 8.3 % (15.0-51.0); MEAN CORPUSCULAR HGB CONC 30.4 g/dl (32.0-37.0); MEAN CORPUSCULAR VOLUME 98.5 fl (82.0-101.0); MEAN PLATELET VOLUME 12.3 fl (7.4-10.4); MONOCYTE # 1.5 10^3/ul (0.3-0.9); MONOCYTES % 7.5 % (0.0-11.0); NEUTROPHIL # 16.1 10^3/ul (1.6-7.5); PLATELET COUNT 186 10^3/UL (140-415); RED CELL DISTRIBUTION WIDTH 14.7 % (11.5-14.5)
[2018-10-26 04:14] LABS: TROPONIN-I 0.571 ng/ml (0.000-0.120)
[2018-10-26 05:19] LABS: LACTIC ACID 2.1 mmol/L (0.5-2.0)
[2018-10-26] MEDS ORDERED: ALBUTEROL/IPRATROPIUM (NEB) 3 ML AMP HHN (07:30)
[2018-10-26] MEDS ORDERED: NACL 0.9% 3 ML SYG IV (07:30)
[2018-10-26] MEDS: SERTRALINE 100 MG TAB PO (09:00)
[2018-10-26] MEDS: DOCUSATE SODIUM 100 MG CAP PO ×2 (09:00→20:22)
[2018-10-26] MEDS: METHADONE (1 MG/ML 5 ML PO UD SYG) PO (09:00)
[2018-10-26] MEDS: BACLOFEN 10 MG TAB PO ×2 (09:00→20:23)
[2018-10-26] MEDS: AMLODIPINE 5 MG TAB PO (09:00)
[2018-10-26] MEDS: BUSPIRONE 10 MG TAB PO ×3 (09:00→20:22)
[2018-10-26] MEDS: FLUTICASONE/VILANTEROL 200-25 INH DEVICE INH (09:00)
[2018-10-26] MEDS: CALCIUM CARBONATE 1.25 GM TAB PO ×2 (09:00→20:23)
[2018-10-26] MEDS ORDERED: METHADONE (1 MG/ML 5 ML PO UD SYG) PO (09:00)
[2018-10-26] MEDS: RIFAXIMIN 550 MG TAB PO ×2 (09:00→20:23)
[2018-10-26] MEDS ORDERED: VANCOMYCIN IV PER PHARMACY XX (09:00)
[2018-10-26] MEDS ORDERED: APIXABAN 5 MG TABLET PO (09:00)
[2018-10-26 09:01] LABS: TROPONIN-I 0.359 ng/ml (0.000-0.120)
[2018-10-26 09:38] LABS: CK INDEX 0.9; CREATINE KINASE 14351 IU/L (23-200)
[2018-10-26] MEDS: APIXABAN 5 MG TABLET PO ×3 (10:30→21:23)
[2018-10-26 10:43] LABS: LACTIC ACID 2.1 mmol/L (0.5-2.0)
[2018-10-26] MEDS: DEXTROSE 5%-0.225% NACL 1,000 ML IV ×2 (10:49→21:24)
[2018-10-26] MEDS: PIPER-TAZO 3.375 GM IV (PMX) 100 ML IVPB ×2 (10:50→18:48)
[2018-10-26] MEDS: METHYLPREDNISOLONE 125 MG INJ IV (10:50)
[2018-10-26] MEDS ORDERED: ALBUTEROL HFA 8 GM INHALER INH (12:00)
[2018-10-26] MEDS: VANCOMYCIN 1 GM 250 ML IVPB (13:34)
[2018-10-26] MEDS ORDERED: LEVALBUTEROL (NEB) 0.63 MG/3 ML AMP HHN (14:00)
[2018-10-26 15:42] LABS: LACTIC ACID 2.9 mmol/L (0.5-2.0)
[2018-10-26 16:05] LABS: TROPONIN-I 0.349 ng/ml (0.000-0.120)
[2018-10-26 16:24] LABS: CK INDEX 0.7; CREATINE KINASE 13083 IU/L (23-200)
[2018-10-26] MEDS: LEVALBUTEROL (NEB) 0.63 MG/3 ML AMP HHN ×2 (17:00→20:12)
[2018-10-26 17:20] LABS: PROCALCITONIN 2.13 ng/mL (0.00-0.10)
[2018-10-26 22:44] LABS: LACTIC ACID 2.5 mmol/L (0.5-2.0)
[2018-10-27] MEDS: PIPER-TAZO 3.375 GM IV (PMX) 100 ML IVPB ×3 (00:20→18:29)
[2018-10-27] MEDS: LEVALBUTEROL (NEB) 0.63 MG/3 ML AMP HHN ×6 (01:34→20:02)
[2018-10-27] MEDS: DEXTROSE 5%-0.225% NACL 1,000 ML IV ×2 (05:09→09:17)
[2018-10-27] MEDS: PANTOPRAZOLE (EC) 40 MG TAB PO (05:09)
[2018-10-27 05:35] LABS: ABNORMAL IP MESSAGE 1; HEMATOCRIT 38.4 % (37.0-47.0); HEMOGLOBIN 11.9 g/dl (12.0-16.0); MEAN CORPUSCULAR HEMOGLOBIN 30.4 pg (29.0-33.0); NUCLEATED RED BLOOD CELLS% 0.1 /100WBC (0.0-0.0); PLATELET COUNT 191 10^3/UL (140-415); RED BLOOD COUNT 3.92 10^6/ul (4.20-5.40)
[2018-10-27 05:35] LABS: WHITE BLOOD COUNT 16.7 10^3/ul (4.8-10.8)
[2018-10-27 05:39] LABS: POSITIVE DIFF @See below
[2018-10-27 05:40] LABS: ADD MAN DIFF? YES
[2018-10-27 05:57] LABS: ALANINE AMINOTRANSFERASE 218 IU/L (13-69); ALKALINE PHOSPHATASE 63 IU/L (42-121); ANION GAP 11 (5-13); ASPARTATE AMINO TRANSFERASE 339 IU/L (15-46); BILIRUBIN,INDIRECT 0.5 mg/dl (0-1.1); BILIRUBIN,TOTAL 0.5 mg/dl (0.2-1.3); BLOOD UREA NITROGEN 94 mg/dl (7-20); CALCIUM 7.4 mg/dl (8.4-10.2); CARBON DIOXIDE 23 mmol/L (21-31); CHLORIDE 117 mmol/L (97-110); CHOL/HDL RATIO 3.3 RATIO; CHOLESTEROL 149 mg/dl (100-200); CREATININE 2.69 mg/dl (0.44-1.00); Estimated GFR 18 mL/min (>60); GLUCOSE 226 mg/dl (70-220); HDL CHOLESTEROL 44 mg/dl (35-98); LDL CHOLESTEROL,CALCULATED 81 mg/dl; MAGNESIUM 2.5 mg/dl (1.7-2.5); POTASSIUM 3.5 mmol/L (3.5-5.1); SODIUM 151 mmol/L (135-144); TRIGLYCERIDES 119 mg/dl (0-149)
[2018-10-27 06:03] LABS: ALANINE AMINOTRANSFERASE 218 IU/L (13-69); ALBUMIN 3.1 g/dl (3.3-4.9); ALKALINE PHOSPHATASE 64 IU/L (42-121); ASPARTATE AMINO TRANSFERASE 336 IU/L (15-46); BILIRUBIN,INDIRECT 0.5 mg/dl (0-1.1); BILIRUBIN,TOTAL 0.5 mg/dl (0.2-1.3); TOTAL PROTEIN 6.1 g/dl (6.1-8.1)
[2018-10-27 06:14] LABS: LACTIC ACID 2.7 mmol/L (0.5-2.0)
[2018-10-27 07:28] LABS: ANISOCYTOSIS 2+ (0-0); BAND NEUTROPHILS % (M) 54 % (0-4); BURR CELLS 3+ (0-0); ERYTHROBLAST% (NRBC) (M) 1 % (0-0); GIANT THROMBO% (M) 3 % (0-0); LYMPHOCYTES #M 1.5 10^3/ul (0.8-2.9); LYMPHOCYTES % (M) 9 % (15-51); METAMYELOCYTES #M 0.6 10^3/ul (0.0-0.0); METAMYELOCYTES %M 4 % (0-0); MONOCYTE #M 0.6 10^3/ul (0.3-0.9); MONOCYTES % (M) 4 % (0-11); MYELOCYTES #M 0.3 10^3/ul (0.0-0.0); MYELOCYTES % (M) 2 % (0-0); PLATELET ESTIMATE NORMAL; POIKILOCYTOSIS 3+ (0-0); POLYCHROMASIA 1+ (0-0); PROMYELOCYTES #M 0.5 10^3/ul (0-0); PROMYELOCYTES % (M) 3 % (0-0); REACTIVE LYMPHOCYTES #M 0.1 10^3/ul (0.0-0.0); REACTIVE LYMPHOCYTES% (M) 1 % (0-0); SEG NEUT #M 5.3 10^3/ul (1.6-7.5); SEGMENTED NEUTROPHILS (M) % 23 % (39-77); SMUDGE%M 8 % (0-0); SPHEROCYTES 1+ (0-0)
[2018-10-27] MEDS: RIFAXIMIN 550 MG TAB PO ×2 (09:00→21:26)
[2018-10-27] MEDS: BACLOFEN 10 MG TAB PO ×2 (09:00→21:26)
[2018-10-27] MEDS: DOCUSATE SODIUM 100 MG CAP PO ×2 (09:00→21:25)
[2018-10-27] MEDS: CALCIUM CARBONATE 1.25 GM TAB PO ×2 (09:00→21:26)
[2018-10-27] MEDS: BUSPIRONE 10 MG TAB PO ×2 (09:00→21:25)
[2018-10-27] MEDS: METHYLPREDNISOLONE 125 MG INJ IV (09:16)
[2018-10-27] MEDS: APIXABAN 5 MG TABLET PO ×2 (09:17→21:26)
[2018-10-27 10:11] LABS: AADO2 Arterial 100.2 mmHg (7.0-24.0); Allen Test ACCEPTAB; Arterial Base Excess -4.8 mmol/L (-3.0-3); Arterial Blood Gas Oxygen Sat 99.3 mmHG (95.0-98.0); Arterial COHb 0.1 % (0.0-3.0); Arterial HCO3 20.2 mmol/L (22.0-26.0); Arterial MetHb 0.2 % (0.0-1.5); Arterial pCO2 37.4 mmhg (35-45); Blood Gas IEPAP 18/5; Blood Gas PS 13; MODE MASK - BIPAP; Site Right Radial
[2018-10-27] MEDS: DEXTROSE 5% 1,000 ML IV (10:30)
[2018-10-27 10:32] LABS: LACTIC ACID 1.9 mmol/L (0.5-2.0)
[2018-10-27 12:47] LABS: TROPONIN-I 0.225 ng/ml (0.000-0.120)
[2018-10-27] MEDS: COLLAGENASE 5 GM (UD JAR) TOP (15:00)
[2018-10-27 18:34] LABS: TROPONIN-I 0.146 ng/ml (0.000-0.120)
[2018-10-27] MEDS: BALSAM PERU/CASTOR OIL 60 GM TUBE TOP (21:27)
[2018-10-27] MEDS: clonAZEPAM 0.5 MG TAB PO (21:55)
[2018-10-27] MEDS: ACETAMINOPHEN 325 MG TAB PO (21:56)
[2018-10-28] MEDS ORDERED: VANCOMYCIN 500 MG (PMX) 100 ML IVPB
[2018-10-28] MEDS: ZOLPIDEM 5 MG TAB PO (00:30)
[2018-10-28 01:17] LABS: TROPONIN-I 0.133 ng/ml (0.000-0.120)
[2018-10-28] MEDS: LEVALBUTEROL (NEB) 0.63 MG/3 ML AMP HHN ×6 (01:59→20:24)
[2018-10-28] MEDS: PIPER-TAZO 3.375 GM IV (PMX) 100 ML IVPB (02:10)
[2018-10-28 05:26] LABS: ABNORMAL IP MESSAGE 1; HEMATOCRIT 32.1 % (37.0-47.0); HEMOGLOBIN 10.1 g/dl (12.0-16.0); MEAN CORPUSCULAR HEMOGLOBIN 30.4 pg (29.0-33.0); MEAN CORPUSCULAR HGB CONC 31.5 g/dl (32.0-37.0); MEAN CORPUSCULAR VOLUME 96.7 fl (82.0-101.0); MEAN PLATELET VOLUME 12.1 fl (7.4-10.4); NUCLEATED RED BLOOD CELLS% 0.3 /100WBC (0.0-0.0); PLATELET COUNT 145 10^3/UL (140-415); RED BLOOD COUNT 3.32 10^6/ul (4.20-5.40)
[2018-10-28 05:26] LABS: WHITE BLOOD COUNT 14.3 10^3/ul (4.8-10.8)
[2018-10-28 05:38] LABS: ADD MAN DIFF? YES; POSITIVE DIFF @See below
[2018-10-28 05:44] LABS: ALANINE AMINOTRANSFERASE 235 IU/L (13-69); ALBUMIN 2.6 g/dl (3.3-4.9); ALKALINE PHOSPHATASE 62 IU/L (42-121); ASPARTATE AMINO TRANSFERASE 224 IU/L (15-46); BILIRUBIN,INDIRECT 0.3 mg/dl (0-1.1); BILIRUBIN,TOTAL 0.3 mg/dl (0.2-1.3); TOTAL PROTEIN 5.3 g/dl (6.1-8.1)
[2018-10-28 05:49] LABS: MAGNESIUM 2.2 mg/dl (1.7-2.5)
[2018-10-28 05:49] LABS: PHOSPHORUS 3.8 mg/dl (2.5-4.9)
[2018-10-28 05:56] LABS: ANION GAP 9 (5-13); BLOOD UREA NITROGEN 95 mg/dl (7-20); CALCIUM 7.2 mg/dl (8.4-10.2); CARBON DIOXIDE 22 mmol/L (21-31); CHLORIDE 110 mmol/L (97-110); CREATININE 2.75 mg/dl (0.44-1.00); Estimated GFR 17 mL/min (>60); GLUCOSE 195 mg/dl (70-220); SODIUM 141 mmol/L (135-144)
[2018-10-28 06:04] LABS: POTASSIUM 2.9 mmol/L (3.5-5.1)
[2018-10-28 06:33] LABS: VANCOMYCIN,RANDOM 14.5 ug/ml
[2018-10-28] MEDS: DOCUSATE SODIUM 100 MG CAP PO ×2 (09:00→21:34)
[2018-10-28] MEDS: BUSPIRONE 10 MG TAB PO ×2 (09:00→21:35)
[2018-10-28] MEDS: APIXABAN 5 MG TABLET PO ×2 (10:20→21:34)
[2018-10-28] MEDS: BACLOFEN 10 MG TAB PO ×2 (10:20→21:33)
[2018-10-28] MEDS: METHYLPREDNISOLONE 125 MG INJ IV (10:20)
[2018-10-28] MEDS: COLLAGENASE 5 GM (UD JAR) TOP (10:20)
[2018-10-28] MEDS: CALCIUM CARBONATE 1.25 GM TAB PO ×2 (10:21→21:33)
[2018-10-28] MEDS: RIFAXIMIN 550 MG TAB PO ×2 (10:21→21:33)
[2018-10-28] MEDS: FLUTICASONE/VILANTEROL 200-25 INH DEVICE INH (10:21)
[2018-10-28] MEDS: BALSAM PERU/CASTOR OIL 60 GM TUBE TOP ×2 (10:22→21:35)
[2018-10-28] MEDS: DEXTROSE 5% 1,000 ML IV ×4 (10:24→18:30)
[2018-10-28] MEDS: POTASSIUM CHLORIDE 100 ML IVPB (10:24)
[2018-10-28 10:45] LABS: ANISOCYTOSIS 2+ (0-0); BAND NEUTROPHILS #M 5.4 10^3/ul (0.0-0.6); BAND NEUTROPHILS % (M) 38 % (0-4); ECHINOCYTOSIS 3+ (0-0); ERYTHROBLAST% (NRBC) (M) 1 % (0-0); GIANT THROMBO% (M) 4 % (0-0); LYMPHOCYTES % (M) 14 % (15-51); MONOCYTE #M 0.7 10^3/ul (0.3-0.9); MONOCYTES % (M) 5 % (0-11); MYELOCYTES #M 0.1 10^3/ul (0.0-0.0); MYELOCYTES % (M) 1 % (0-0); PLATELET ESTIMATE NORMAL; POIKILOCYTOSIS 3+ (0-0); REACTIVE LYMPHOCYTES #M 0.5 10^3/ul (0.0-0.0); REACTIVE LYMPHOCYTES% (M) 4 % (0-0); SEG NEUT #M 6.2 10^3/ul (1.6-7.5); SEGMENTED NEUTROPHILS (M) % 38 % (39-77); SMUDGE%M 1 % (0-0)
[2018-10-28 11:17] LABS: TROPONIN-I 0.066 ng/ml (0.000-0.120)
[2018-10-28] MEDS: PIPER-TAZO 2.25 GM/NS 50 ML IVPB ×3 (13:25→23:57)
[2018-10-28] MEDS: INSULIN ASPART [NOVOLOG] 3 ML PEN SC ×3 (13:35→22:17)
[2018-10-28] MEDS: HYDROCODONE/APAP (5/325) TAB PO ×3 (15:26→23:57)
[2018-10-28 16:40] LABS: Allen Test ACCEPTAB; Arterial Base Excess -2.9 mmol/L (-3.0-3); Arterial Blood Gas Oxygen Sat 98.2 mmHG (95.0-98.0); Arterial COHb 0.1 % (0.0-3.0); Arterial HCO3 20.5 mmol/L (22.0-26.0); Arterial MetHb 0.1 % (0.0-1.5); Arterial pCO2 30.9 mmhg (35-45); MODE NASAL CANNULA; Site Right Radial
[2018-10-28] MEDS: VANCOMYCIN 500 MG (PMX) 100 ML IVPB (19:02)
[2018-10-28] MEDS: clonAZEPAM 0.5 MG TAB PO (21:35)
[2018-10-28] MEDS: METHADONE (1 MG/ML 5 ML PO UD SYG) PO (21:38)
[2018-10-29] MEDS: LEVALBUTEROL (NEB) 0.63 MG/3 ML AMP HHN ×6 (01:19→20:39)
[2018-10-29 01:34] LABS: TROPONIN-I 0.049 ng/ml (0.000-0.120)
[2018-10-29] MEDS: DEXTROSE 5% 1,000 ML IV (05:10)
[2018-10-29] MEDS: PIPER-TAZO 2.25 GM/NS 50 ML IVPB ×3 (05:11→19:24)
[2018-10-29 05:17] LABS: WHITE BLOOD COUNT 19.4 10^3/ul (4.8-10.8)
[2018-10-29 05:17] LABS: ABNORMAL IP MESSAGE 1; HEMATOCRIT 29.5 % (37.0-47.0); HEMOGLOBIN 9.3 g/dl (12.0-16.0); MEAN CORPUSCULAR HEMOGLOBIN 30.4 pg (29.0-33.0); MEAN CORPUSCULAR HGB CONC 31.5 g/dl (32.0-37.0); MEAN CORPUSCULAR VOLUME 96.4 fl (82.0-101.0); MEAN PLATELET VOLUME 12.2 fl (7.4-10.4); NUCLEATED RED BLOOD CELLS% 0.3 /100WBC (0.0-0.0); PLATELET COUNT 161 10^3/UL (140-415); RED BLOOD COUNT 3.06 10^6/ul (4.20-5.40); RED CELL DISTRIBUTION WIDTH 15.2 % (11.5-14.5)
[2018-10-29 05:20] LABS: POSITIVE DIFF @See below
[2018-10-29 05:21] LABS: ADD MAN DIFF? YES
[2018-10-29 05:51] LABS: PHOSPHORUS 2.5 mg/dl (2.5-4.9)
[2018-10-29 05:51] LABS: MAGNESIUM 2.1 mg/dl (1.7-2.5)
[2018-10-29 05:56] LABS: ALANINE AMINOTRANSFERASE 222 IU/L (13-69); ALBUMIN 2.5 g/dl (3.3-4.9); ALBUMIN/GLOBULIN RATIO 0.92; ALKALINE PHOSPHATASE 61 IU/L (42-121); ANION GAP 8 (5-13); ASPARTATE AMINO TRANSFERASE 146 IU/L (15-46); BILIRUBIN,INDIRECT 0.3 mg/dl (0-1.1); BILIRUBIN,TOTAL 0.3 mg/dl (0.2-1.3); BLOOD UREA NITROGEN 69 mg/dl (7-20); CALCIUM 8.2 mg/dl (8.4-10.2); CARBON DIOXIDE 26 mmol/L (21-31); CHLORIDE 109 mmol/L (97-110); CREATININE 1.56 mg/dl (0.44-1.00); Estimated GFR 33 mL/min (>60); GLUCOSE 185 mg/dl (70-220); SODIUM 143 mmol/L (135-144); TOTAL PROTEIN 5.2 g/dl (6.1-8.1)
[2018-10-29] MEDS: INSULIN ASPART [NOVOLOG] 3 ML PEN SC ×4 (07:49→21:00)
[2018-10-29] MEDS: POTASSIUM CHLORIDE 100 ML IVPB ×3 (08:03→14:47)
[2018-10-29] MEDS: METHADONE (1 MG/ML 5 ML PO UD SYG) PO (08:17)
[2018-10-29] MEDS: FAMOTIDINE 20 MG INJ IV (08:20)
[2018-10-29] MEDS: METHYLPREDNISOLONE 125 MG INJ IV (08:20)
[2018-10-29] MEDS: APIXABAN 5 MG TABLET PO ×2 (08:21→21:14)
[2018-10-29] MEDS: BACLOFEN 10 MG TAB PO ×2 (08:21→21:13)
[2018-10-29] MEDS: CALCIUM CARBONATE 1.25 GM TAB PO ×2 (08:21→21:14)
[2018-10-29] MEDS: RIFAXIMIN 550 MG TAB PO ×2 (08:21→21:13)
[2018-10-29] MEDS: DOCUSATE SODIUM 100 MG CAP PO ×2 (08:21→21:13)
[2018-10-29] MEDS: FLUTICASONE/VILANTEROL 200-25 INH DEVICE INH (08:22)
[2018-10-29] MEDS: COLLAGENASE 5 GM (UD JAR) TOP (08:22)
[2018-10-29] MEDS: BALSAM PERU/CASTOR OIL 60 GM TUBE TOP ×2 (08:22→21:26)
[2018-10-29] MEDS: BUSPIRONE 10 MG TAB PO ×3 (09:11→21:23)
[2018-10-29] MEDS: ONDANSETRON 4 MG INJ IV ×2 (09:36→21:38)
[2018-10-29 09:57] LABS: ANISOCYTOSIS 2+ (0-0); BAND NEUTROPHILS #M 4.2 10^3/ul (0.0-0.6); BAND NEUTROPHILS % (M) 22 % (0-4); BURR CELLS 2+ (0-0); GIANT THROMBO% (M) 1 % (0-0); LYMPHOCYTES #M 0.9 10^3/ul (0.8-2.9); LYMPHOCYTES % (M) 5 % (15-51); MONOCYTE #M 0.5 10^3/ul (0.3-0.9); MONOCYTES % (M) 3 % (0-11); PLATELET ESTIMATE NORMAL; POIKILOCYTOSIS 3+ (0-0); POLYCHROMASIA 2+ (0-0); SEG NEUT #M 14.4 10^3/ul (1.6-7.5); SEGMENTED NEUTROPHILS (M) % 70 % (39-77); SMUDGE%M 2 % (0-0); TARGET CELLS 1+ (0-0)
[2018-10-29 10:42] LABS: COLLECTION PERIOD 24 hrs
[2018-10-29] MEDS: HYDROCODONE/APAP (5/325) TAB PO ×2 (10:48→21:13)
[2018-10-29 11:29] LABS: VOLUME 3250 mls
[2018-10-29 14:06] LABS: ADD UMIC YES; UR ASCORBIC ACID NEGATIVE (NEGATIVE); UR BACTERIA FEW /HPF (NONE SEEN); UR BILIRUBIN (Dip) NEGATIVE (NEGATIVE); UR BLOOD (Dip) 3+ mg/dL (NEGATIVE); UR CLARITY CLEAR (CLEAR); UR COLOR YELLOW (YELLOW); UR GLUCOSE (Dip) NEGATIVE (NEGATIVE); UR KETONES (Dip) NEGATIVE (NEGATIVE); UR LEUKOCYTE ESTERASE (Dip) NEGATIVE Leu/ul (NEGATIVE); UR NITRITE (Dip) NEGATIVE (NEGATIVE); UR RBC 1 /HPF (0-5); UR SPECIFIC GRAVITY (Dip) 1.016 (1.003-1.030); UR TOTAL PROTEIN (Dip) 1+ mg/dl (NEGATIVE); UR UROBILINOGEN (Dip) NEGATIVE (NEGATIVE); UR WBC 1 /HPF (0-5)
[2018-10-29 14:18] LABS: CREATININE,URINE RANDOM 41.02 mg/dl (20-320)
[2018-10-30] MEDS: LEVALBUTEROL (NEB) 0.63 MG/3 ML AMP HHN ×6 (01:00→20:46)
[2018-10-30] MEDS: PIPER-TAZO 2.25 GM/NS 50 ML IVPB ×2 (01:12→05:34)
[2018-10-30] MEDS: clonAZEPAM 0.5 MG TAB PO ×2 (01:16→21:53)
[2018-10-30 05:14] LABS: ADD MAN DIFF? NO
[2018-10-30 05:17] LABS: ABNORMAL IP MESSAGE 1; BASOPHIL # 0.1 10^3/ul (0.0-0.1); BASOPHILS % 0.6 % (0.0-2.0); EOSINOPHILS % 0.1 % (0.0-7.0); HEMATOCRIT 26.1 % (37.0-47.0); HEMOGLOBIN 8.3 g/dl (12.0-16.0); LYMPHOCYTES # 1.5 10^3/ul (0.8-2.9); MEAN CORPUSCULAR HEMOGLOBIN 30.4 pg (29.0-33.0); MEAN CORPUSCULAR HGB CONC 31.8 g/dl (32.0-37.0); MEAN CORPUSCULAR VOLUME 95.6 fl (82.0-101.0); MEAN PLATELET VOLUME 12.2 fl (7.4-10.4); MONOCYTE # 1.8 10^3/ul (0.3-0.9); MONOCYTES % 10.6 % (0.0-11.0); NEUTROPHIL # 13.3 10^3/ul (1.6-7.5); NEUTROPHILS % 78.6 % (39.0-77.0); NUCLEATED RED BLOOD CELLS # 0.1 10^3/ul (0.0-0.0); NUCLEATED RED BLOOD CELLS% 0.5 /100WBC (0.0-0.0); PLATELET COUNT 173 10^3/UL (140-415); RED BLOOD COUNT 2.73 10^6/ul (4.20-5.40)
[2018-10-30 05:17] LABS: WHITE BLOOD COUNT 16.8 10^3/ul (4.8-10.8)
[2018-10-30 05:23] LABS: POSITIVE DIFF @See below
[2018-10-30 05:38] LABS: ALANINE AMINOTRANSFERASE 194 IU/L (13-69); ALBUMIN 2.3 g/dl (3.3-4.9); ALBUMIN/GLOBULIN RATIO 0.92; ALKALINE PHOSPHATASE 63 IU/L (42-121); ANION GAP 5 (5-13); ASPARTATE AMINO TRANSFERASE 98 IU/L (15-46); BILIRUBIN,INDIRECT 0.4 mg/dl (0-1.1); BILIRUBIN,TOTAL 0.4 mg/dl (0.2-1.3); BLOOD UREA NITROGEN 53 mg/dl (7-20); CALCIUM 8.4 mg/dl (8.4-10.2); CARBON DIOXIDE 27 mmol/L (21-31); CHLORIDE 111 mmol/L (97-110); CREATININE 1.15 mg/dl (0.44-1.00); Estimated GFR 47 mL/min (>60); GLUCOSE 120 mg/dl (70-220); MAGNESIUM 1.9 mg/dl (1.7-2.5); PHOSPHORUS 1.9 mg/dl (2.5-4.9); POTASSIUM 4.1 mmol/L (3.5-5.1); SODIUM 143 mmol/L (135-144); TOTAL PROTEIN 4.8 g/dl (6.1-8.1)
[2018-10-30] MEDS: VANCOMYCIN 500 MG (PMX) 100 ML IVPB (06:06)
[2018-10-30] MEDS: INSULIN ASPART [NOVOLOG] 3 ML PEN SC ×4 (07:35→21:00)
[2018-10-30] MEDS: ONDANSETRON 4 MG INJ IV (07:53)
[2018-10-30 08:02] LABS: ANISOCYTOSIS 1+ (0-0); BAND NEUTROPHILS #M 0.6 10^3/ul (0.0-0.6); BAND NEUTROPHILS % (M) 4 % (0-4); BURR CELLS 1+ (0-0); ERYTHROBLAST% (NRBC) (M) 1 % (0-0); GIANT THROMBO% (M) 1 % (0-0); LYMPHOCYTES #M 1.1 10^3/ul (0.8-2.9); LYMPHOCYTES % (M) 7 % (15-51); MONOCYTE #M 1.3 10^3/ul (0.3-0.9); MONOCYTES % (M) 8 % (0-11); OVALOCYTES 1+ (0-0); PLATELET ESTIMATE NORMAL; POIKILOCYTOSIS 1+ (0-0); POLYCHROMASIA 1+ (0-0); PROMYELOCYTES #M 0.3 10^3/ul (0-0); PROMYELOCYTES % (M) 2 % (0-0); SEG NEUT #M 13.4 10^3/ul (1.6-7.5); SEGMENTED NEUTROPHILS (M) % 79 % (39-77); SMUDGE%M 12 % (0-0)
[2018-10-30] MEDS: APIXABAN 5 MG TABLET PO ×2 (09:36→21:14)
[2018-10-30] MEDS: BACLOFEN 10 MG TAB PO ×2 (09:36→21:14)
[2018-10-30] MEDS: DOCUSATE SODIUM 100 MG CAP PO ×2 (09:36→21:14)
[2018-10-30] MEDS: METHYLPREDNISOLONE 125 MG INJ IV (09:37)
[2018-10-30] MEDS: FAMOTIDINE 20 MG INJ IV (09:37)
[2018-10-30] MEDS: RIFAXIMIN 550 MG TAB PO ×2 (09:37→21:14)
[2018-10-30] MEDS: BUSPIRONE 10 MG TAB PO ×2 (09:37→21:14)
[2018-10-30] MEDS: CALCIUM CARBONATE 1.25 GM TAB PO ×2 (09:37→21:14)
[2018-10-30] MEDS: BALSAM PERU/CASTOR OIL 60 GM TUBE TOP ×2 (09:38→21:54)
[2018-10-30] MEDS: FLUTICASONE/VILANTEROL 200-25 INH DEVICE INH (09:39)
[2018-10-30] MEDS: COLLAGENASE 5 GM (UD JAR) TOP (09:50)
[2018-10-30] MEDS: METHADONE (1 MG/ML 5 ML PO UD SYG) PO (09:51)
[2018-10-30] MEDS: POTASSIUM PHOSPHATE 30 MM in SOD CHLORIDE 0.9% 250 ML IVPB (10:49)
[2018-10-30] MEDS: LEVOFLOXACIN 500MG/D5W (PMX) 100 ML IVPB (12:04)
[2018-10-30] MEDS: ASCORBIC ACID 500 MG TAB PO (12:23)
[2018-10-30] MEDS: MULTIVITAMINS THERAPEUTIC TAB PO (12:23)
[2018-10-30] MEDS: ZINC SULFATE 220 MG CAP PO (12:23)
[2018-10-30] MEDS: THIAMINE 100 MG TAB PO (14:21)
[2018-10-30 20:15] LABS: OCCULT BLOOD STOOL POSITIVE (NEGATIVE)
[2018-10-31] MEDS: LEVALBUTEROL (NEB) 0.63 MG/3 ML AMP HHN ×6 (01:00→21:00)
[2018-10-31] MEDS: ZOLPIDEM 5 MG TAB PO (02:54)
[2018-10-31] MEDS: METHADONE (1 MG/ML 5 ML PO UD SYG) PO ×3 (04:10→21:21)
[2018-10-31 06:44] LABS: ADD MAN DIFF? NO
[2018-10-31 06:47] LABS: ABNORMAL IP MESSAGE 1; BASOPHIL # 0.1 10^3/ul (0.0-0.1); BASOPHILS % 0.6 % (0.0-2.0); EOSINOPHILS % 0.2 % (0.0-7.0); HEMOGLOBIN 8.5 g/dl (12.0-16.0); LYMPHOCYTES # 1.8 10^3/ul (0.8-2.9); LYMPHOCYTES % 9.6 % (15.0-51.0); MEAN CORPUSCULAR HGB CONC 31.5 g/dl (32.0-37.0); MEAN CORPUSCULAR VOLUME 95.4 fl (82.0-101.0); MEAN PLATELET VOLUME 12.4 fl (7.4-10.4); MONOCYTE # 1.8 10^3/ul (0.3-0.9); MONOCYTES % 9.4 % (0.0-11.0); NEUTROPHILS % 78.7 % (39.0-77.0); NUCLEATED RED BLOOD CELLS # 0.1 10^3/ul (0.0-0.0); NUCLEATED RED BLOOD CELLS% 0.7 /100WBC (0.0-0.0); PLATELET COUNT 189 10^3/UL (140-415); POSITIVE DIFF @See below; RED BLOOD COUNT 2.83 10^6/ul (4.20-5.40)
[2018-10-31 06:47] LABS: WHITE BLOOD COUNT 19.1 10^3/ul (4.8-10.8)
[2018-10-31 07:31] LABS: ANION GAP 6 (5-13); BLOOD UREA NITROGEN 39 mg/dl (7-20); CALCIUM 8.9 mg/dl (8.4-10.2); CARBON DIOXIDE 27 mmol/L (21-31); CHLORIDE 108 mmol/L (97-110); Estimated GFR > 60 mL/min (>60); GLUCOSE 109 mg/dl (70-220); SODIUM 141 mmol/L (135-144)
[2018-10-31] MEDS: INSULIN ASPART [NOVOLOG] 3 ML PEN SC ×4 (07:55→21:00)
[2018-10-31] MEDS: METHYLPREDNISOLONE 125 MG INJ IV (08:23)
[2018-10-31] MEDS: DOCUSATE SODIUM 100 MG CAP PO ×2 (08:24→21:02)
[2018-10-31] MEDS: MULTIVITAMINS THERAPEUTIC TAB PO (08:25)
[2018-10-31] MEDS: RIFAXIMIN 550 MG TAB PO ×2 (08:25→20:59)
[2018-10-31] MEDS: BUSPIRONE 10 MG TAB PO ×2 (08:25→20:59)
[2018-10-31] MEDS: CALCIUM CARBONATE 1.25 GM TAB PO ×2 (08:25→20:59)
[2018-10-31] MEDS: ASCORBIC ACID 500 MG TAB PO (08:25)
[2018-10-31] MEDS: ZINC SULFATE 220 MG CAP PO (08:25)
[2018-10-31] MEDS: THIAMINE 100 MG TAB PO (08:25)
[2018-10-31] MEDS: APIXABAN 5 MG TABLET PO ×2 (08:25→20:59)
[2018-10-31] MEDS: BACLOFEN 10 MG TAB PO ×2 (08:25→21:02)
[2018-10-31] MEDS: FLUTICASONE/VILANTEROL 200-25 INH DEVICE INH (08:26)
[2018-10-31] MEDS: FAMOTIDINE 20 MG INJ IV (08:26)
[2018-10-31] MEDS: COLLAGENASE 5 GM (UD JAR) TOP (08:27)
[2018-10-31] MEDS: BALSAM PERU/CASTOR OIL 60 GM TUBE TOP ×2 (08:27→21:44)
[2018-10-31] MEDS: DILTIAZEM (CD) 120 MG CAP PO (08:49)
[2018-10-31] MEDS: LEVOFLOXACIN 500MG/D5W (PMX) 100 ML IVPB (12:22)
[2018-11-01] MEDS: clonAZEPAM 0.5 MG TAB PO (01:00)
[2018-11-01] MEDS: LEVALBUTEROL (NEB) 0.63 MG/3 ML AMP HHN ×7 (01:00→21:08)
[2018-11-01] MEDS: ZOLPIDEM 5 MG TAB PO (02:31)
[2018-11-01 07:03] LABS: ADD MAN DIFF? NO
[2018-11-01 07:09] LABS: WHITE BLOOD COUNT 22.2 10^3/ul (4.8-10.8)
[2018-11-01 07:09] LABS: ABNORMAL IP MESSAGE 1; BASOPHIL # 0.1 10^3/ul (0.0-0.1); BASOPHILS % 0.6 % (0.0-2.0); EOSINOPHILS # 0.1 10^3/ul (0.0-0.5); EOSINOPHILS % 0.2 % (0.0-7.0); LYMPHOCYTES # 2.3 10^3/ul (0.8-2.9); LYMPHOCYTES % 10.4 % (15.0-51.0); MEAN CORPUSCULAR HEMOGLOBIN 30.2 pg (29.0-33.0); MEAN CORPUSCULAR HGB CONC 30.8 g/dl (32.0-37.0); MEAN CORPUSCULAR VOLUME 98.1 fl (82.0-101.0); MONOCYTE # 1.5 10^3/ul (0.3-0.9); MONOCYTES % 6.8 % (0.0-11.0); NEUTROPHIL # 17.9 10^3/ul (1.6-7.5); NEUTROPHILS % 80.8 % (39.0-77.0); NUCLEATED RED BLOOD CELLS # 0.1 10^3/ul (0.0-0.0); NUCLEATED RED BLOOD CELLS% 0.4 /100WBC (0.0-0.0); PLATELET COUNT 234 10^3/UL (140-415); RED BLOOD COUNT 2.65 10^6/ul (4.20-5.40); RED CELL DISTRIBUTION WIDTH 14.9 % (11.5-14.5)
[2018-11-01 07:20] LABS: POSITIVE DIFF @See below
[2018-11-01 07:34] LABS: ANION GAP 3 (5-13); BLOOD UREA NITROGEN 36 mg/dl (7-20); CALCIUM 8.3 mg/dl (8.4-10.2); CARBON DIOXIDE 27 mmol/L (21-31); CHLORIDE 105 mmol/L (97-110); CREATININE 0.86 mg/dl (0.44-1.00); Estimated GFR > 60 mL/min (>60); GLUCOSE 112 mg/dl (70-220); POTASSIUM 4.3 mmol/L (3.5-5.1); SODIUM 135 mmol/L (135-144)
[2018-11-01] MEDS: COLLAGENASE 5 GM (UD JAR) TOP (08:54)
[2018-11-01] MEDS: METHYLPREDNISOLONE 125 MG INJ IV (08:55)
[2018-11-01] MEDS: FLUTICASONE/VILANTEROL 200-25 INH DEVICE INH (08:55)
[2018-11-01] MEDS: DILTIAZEM (CD) 120 MG CAP PO (08:56)
[2018-11-01] MEDS: BUSPIRONE 10 MG TAB PO ×2 (08:56→20:17)
[2018-11-01] MEDS: RIFAXIMIN 550 MG TAB PO ×2 (08:56→20:17)
[2018-11-01] MEDS: BACLOFEN 10 MG TAB PO ×2 (08:56→20:17)
[2018-11-01] MEDS: MULTIVITAMINS THERAPEUTIC TAB PO (08:56)
[2018-11-01] MEDS: ZINC SULFATE 220 MG CAP PO (08:56)
[2018-11-01] MEDS: DOCUSATE SODIUM 100 MG CAP PO ×2 (08:56→21:00)
[2018-11-01] MEDS: INSULIN ASPART [NOVOLOG] 3 ML PEN SC ×4 (08:56→20:18)
[2018-11-01] MEDS: ASCORBIC ACID 500 MG TAB PO (08:57)
[2018-11-01] MEDS: APIXABAN 5 MG TABLET PO ×2 (08:57→20:17)
[2018-11-01] MEDS: FAMOTIDINE 20 MG TAB PO (08:57)
[2018-11-01] MEDS: CALCIUM CARBONATE 1.25 GM TAB PO ×2 (08:57→20:17)
[2018-11-01] MEDS: THIAMINE 100 MG TAB PO (08:57)
[2018-11-01] MEDS: BALSAM PERU/CASTOR OIL 60 GM TUBE TOP ×2 (09:01→20:18)
[2018-11-01] MEDS: LEVOFLOXACIN 500MG/D5W (PMX) 100 ML IVPB (12:38)
[2018-11-01] MEDS: METHADONE (1 MG/ML 5 ML PO UD SYG) PO (14:44)
[2018-11-01 20:16] LABS: PROCALCITONIN 0.16 ng/mL (0.00-0.10)
[2018-11-01] MEDS: HYDROCODONE/APAP (5/325) TAB PO (20:22)
[2018-11-01] MEDS: ALBUTEROL/IPRATROPIUM (NEB) 3 ML AMP HHN (21:08)
[2018-11-02] MEDS: LEVALBUTEROL (NEB) 0.63 MG/3 ML AMP HHN ×6 (01:00→20:10)
[2018-11-02] MEDS: ZOLPIDEM 5 MG TAB PO (01:31)
[2018-11-02] MEDS: METHADONE (1 MG/ML 5 ML PO UD SYG) PO ×3 (01:32→20:10)
[2018-11-02] MEDS: clonAZEPAM 0.5 MG TAB PO (03:32)
[2018-11-02] MEDS: CEPASTAT LOZENGE MT (03:32)
[2018-11-02] MEDS: INSULIN ASPART [NOVOLOG] 3 ML PEN SC ×4 (07:55→21:00)
[2018-11-02] MEDS: METHYLPREDNISOLONE 125 MG INJ IV (08:49)
[2018-11-02] MEDS: BUSPIRONE 10 MG TAB PO ×2 (08:50→21:41)
[2018-11-02] MEDS: DOCUSATE SODIUM 100 MG CAP PO ×2 (08:50→21:41)
[2018-11-02] MEDS: RIFAXIMIN 550 MG TAB PO ×2 (08:50→21:42)
[2018-11-02] MEDS: COLLAGENASE 5 GM (UD JAR) TOP (08:50)
[2018-11-02] MEDS: CALCIUM CARBONATE 1.25 GM TAB PO ×2 (08:50→21:42)
[2018-11-02] MEDS: ZINC SULFATE 220 MG CAP PO (08:50)
[2018-11-02] MEDS: ASCORBIC ACID 500 MG TAB PO (08:51)
[2018-11-02] MEDS: BACLOFEN 10 MG TAB PO ×2 (08:51→21:42)
[2018-11-02] MEDS: FAMOTIDINE 20 MG TAB PO (08:51)
[2018-11-02] MEDS: APIXABAN 5 MG TABLET PO ×2 (08:51→21:41)
[2018-11-02] MEDS: THIAMINE 100 MG TAB PO (08:51)
[2018-11-02] MEDS: DILTIAZEM (CD) 120 MG CAP PO (08:54)
[2018-11-02] MEDS: FLUTICASONE/VILANTEROL 200-25 INH DEVICE INH (08:55)
[2018-11-02] MEDS: MULTIVITAMINS THERAPEUTIC TAB PO (09:33)
[2018-11-02] MEDS: BALSAM PERU/CASTOR OIL 60 GM TUBE TOP ×2 (09:34→21:48)
[2018-11-02] MEDS: LEVOFLOXACIN 500MG/D5W (PMX) 100 ML IVPB (12:28)
[2018-11-03] MEDS: LEVALBUTEROL (NEB) 0.63 MG/3 ML AMP HHN ×6 (01:00→20:47)
[2018-11-03] MEDS: ZOLPIDEM 5 MG TAB PO (01:12)
[2018-11-03] MEDS: clonAZEPAM 0.5 MG TAB PO (02:04)
[2018-11-03 06:14] LABS: HEMATOCRIT 21.1 % (37.0-47.0); MEAN CORPUSCULAR HEMOGLOBIN 31.3 pg (29.0-33.0); MEAN CORPUSCULAR HGB CONC 33.2 g/dl (32.0-37.0); MEAN CORPUSCULAR VOLUME 94.2 fl (82.0-101.0); MEAN PLATELET VOLUME 11.8 fl (7.4-10.4); NUCLEATED RED BLOOD CELLS% 0.1 /100WBC (0.0-0.0); PLATELET COUNT 333 10^3/UL (140-415); RED BLOOD COUNT 2.24 10^6/ul (4.20-5.40); RED CELL DISTRIBUTION WIDTH 15.2 % (11.5-14.5)
[2018-11-03 06:14] LABS: WHITE BLOOD COUNT 21.1 10^3/ul (4.8-10.8)
[2018-11-03 06:23] LABS: ADD MAN DIFF? YES; POSITIVE DIFF @See below
[2018-11-03 06:45] LABS: OCCULT BLOOD STOOL POSITIVE (NEGATIVE)
[2018-11-03 07:15] LABS: ANION GAP 5 (5-13); BLOOD UREA NITROGEN 30 mg/dl (7-20); CALCIUM 7.4 mg/dl (8.4-10.2); CARBON DIOXIDE 26 mmol/L (21-31); CHLORIDE 102 mmol/L (97-110); CREATININE 0.72 mg/dl (0.44-1.00); Estimated GFR > 60 mL/min (>60); GLUCOSE 118 mg/dl (70-220); MAGNESIUM 1.6 mg/dl (1.7-2.5); PHOSPHORUS 3.8 mg/dl (2.5-4.9); POTASSIUM 3.9 mmol/L (3.5-5.1); SODIUM 133 mmol/L (135-144)
[2018-11-03] MEDS: LEVOFLOXACIN 500 MG TAB PO (07:21)
[2018-11-03] MEDS: METHADONE (1 MG/ML 5 ML PO UD SYG) PO ×2 (07:26→23:21)
[2018-11-03] MEDS: INSULIN ASPART [NOVOLOG] 3 ML PEN SC ×4 (08:00→20:37)
[2018-11-03] MEDS: ZINC SULFATE 220 MG CAP PO (09:00)
[2018-11-03] MEDS: RIFAXIMIN 550 MG TAB PO ×2 (09:00→20:33)
[2018-11-03 09:06] LABS: ANISOCYTOSIS 1+ (0-0); BAND NEUTROPHILS #M 6.3 10^3/ul (0.0-0.6); BAND NEUTROPHILS % (M) 30 % (0-4); HYPOCHROMASIA 1+ (0-0); LYMPHOCYTES #M 0.4 10^3/ul (0.8-2.9); LYMPHOCYTES % (M) 2 % (15-51); MONOCYTE #M 0.8 10^3/ul (0.3-0.9); MONOCYTES % (M) 4 % (0-11); PLATELET ESTIMATE NORMAL; POLYCHROMASIA 2+ (0-0); SEG NEUT #M 14.8 10^3/ul (1.6-7.5); SEGMENTED NEUTROPHILS (M) % 64 % (39-77); TOXIC GRANULATION 1+ (0-0)
[2018-11-03] MEDS: HYDROCODONE/APAP (5/325) TAB PO (09:38)
[2018-11-03] MEDS: METHYLPREDNISOLONE 125 MG INJ IV (09:39)
[2018-11-03] MEDS: MULTIVITAMINS THERAPEUTIC TAB PO (09:43)
[2018-11-03] MEDS: DOCUSATE SODIUM 100 MG CAP PO ×2 (09:43→20:33)
[2018-11-03] MEDS: FAMOTIDINE 20 MG TAB PO (09:44)
[2018-11-03] MEDS: ASCORBIC ACID 500 MG TAB PO (09:45)
[2018-11-03] MEDS: BACLOFEN 10 MG TAB PO ×2 (09:45→20:33)
[2018-11-03] MEDS: APIXABAN 5 MG TABLET PO (09:45)
[2018-11-03] MEDS: THIAMINE 100 MG TAB PO (09:45)
[2018-11-03] MEDS: COLLAGENASE 5 GM (UD JAR) TOP (09:50)
[2018-11-03] MEDS: BUSPIRONE 10 MG TAB PO ×3 (11:10→20:33)
[2018-11-03] MEDS: DILTIAZEM (CD) 120 MG CAP PO ×2 (11:11→11:41)
[2018-11-03] MEDS: CALCIUM CARBONATE 1.25 GM TAB PO ×3 (11:11→20:33)
[2018-11-03] MEDS: FLUTICASONE/VILANTEROL 200-25 INH DEVICE INH (11:39)
[2018-11-03] MEDS: BALSAM PERU/CASTOR OIL 60 GM TUBE TOP ×2 (11:43→20:37)
[2018-11-03] MEDS: MAGNESIUM SULFATE 2 GM/50 ML 50 ML IVPB ×2 (11:49→12:22)
[2018-11-03] MEDS: IOHEXOL 14.3 MG(I)/ML (ADULT) BTL PO (12:06)
[2018-11-03] MEDS: SOD CHLORIDE 0.9% 100 ML (14:58)
[2018-11-03] MEDS: IOHEXOL 300MG/ML 150 ML BTL (14:58)
[2018-11-03] MEDS: metroNIDAZOLE 500 MG/NS (PMX) 100 ML IVPB ×2 (16:07→22:03)
[2018-11-03 18:06] LABS: IMMEDIATE SPIN CROSSMATCH 1 1
[2018-11-03] MEDS: SOD CHLORIDE 0.9% 250 ML IV* (18:26)
[2018-11-03] MEDS: DEXTROSE 5%-0.45% NACL 1,000 ML IV (23:13)
[2018-11-04] MEDS: INSULIN ASPART [NOVOLOG] 3 ML PEN SC ×6 (01:00→20:52)
[2018-11-04] MEDS: LEVALBUTEROL (NEB) 0.63 MG/3 ML AMP HHN ×5 (01:00→21:00)
[2018-11-04] MEDS: ZOLPIDEM 5 MG TAB PO (01:16)
[2018-11-04] MEDS ORDERED: VANCOMYCIN IV PER PHARMACY XX (02:30)
[2018-11-04] MEDS: MEROPENEM 1 GM/50ML(PMX) 50 ML IVPB ×3 (02:48→17:20)
[2018-11-04] MEDS: LORAZEPAM 2 MG INJ IV ×4 (02:49→20:51)
[2018-11-04] MEDS: VANCOMYCIN 1 GM 250 ML IVPB (03:47)
[2018-11-04 04:04] LABS: ABNORMAL IP MESSAGE 1; HEMATOCRIT 27.2 % (37.0-47.0); HEMOGLOBIN 9.2 g/dl (12.0-16.0); MEAN CORPUSCULAR HEMOGLOBIN 30.7 pg (29.0-33.0); MEAN CORPUSCULAR HGB CONC 33.8 g/dl (32.0-37.0); MEAN CORPUSCULAR VOLUME 90.7 fl (82.0-101.0); NUCLEATED RED BLOOD CELLS% 0.1 /100WBC (0.0-0.0); RED CELL DISTRIBUTION WIDTH 15.6 % (11.5-14.5)
[2018-11-04 04:04] LABS: WHITE BLOOD COUNT 17.2 10^3/ul (4.8-10.8)
[2018-11-04 04:15] LABS: PLATELET COUNT 247 10^3/UL (140-415); POSITIVE DIFF @See below
[2018-11-04 04:19] LABS: ADD MAN DIFF? YES
[2018-11-04 04:20] LABS: ALANINE AMINOTRANSFERASE 78 IU/L (13-69); ALBUMIN 2.3 g/dl (3.3-4.9); ALBUMIN/GLOBULIN RATIO 0.88; ALKALINE PHOSPHATASE 52 IU/L (42-121); ANION GAP 9 (5-13); ASPARTATE AMINO TRANSFERASE 34 IU/L (15-46); BILIRUBIN,INDIRECT 0.6 mg/dl (0-1.1); BILIRUBIN,TOTAL 0.6 mg/dl (0.2-1.3); BLOOD UREA NITROGEN 28 mg/dl (7-20); CALCIUM 7.7 mg/dl (8.4-10.2); CARBON DIOXIDE 26 mmol/L (21-31); CHLORIDE 97 mmol/L (97-110); CREATININE 0.79 mg/dl (0.44-1.00); Estimated GFR > 60 mL/min (>60); GLUCOSE 114 mg/dl (70-220); POTASSIUM 4.2 mmol/L (3.5-5.1); SODIUM 132 mmol/L (135-144); TOTAL PROTEIN 4.9 g/dl (6.1-8.1)
[2018-11-04 06:00] LABS: WHITE BLOOD COUNT 16.2 10^3/ul (4.8-10.8)
[2018-11-04 06:00] LABS: ABNORMAL IP MESSAGE 1; HEMATOCRIT 24.9 % (37.0-47.0); HEMOGLOBIN 8.4 g/dl (12.0-16.0); MEAN CORPUSCULAR HEMOGLOBIN 30.7 pg (29.0-33.0); MEAN CORPUSCULAR HGB CONC 33.7 g/dl (32.0-37.0); MEAN CORPUSCULAR VOLUME 90.9 fl (82.0-101.0); MEAN PLATELET VOLUME 11.2 fl (7.4-10.4); NUCLEATED RED BLOOD CELLS% 0.2 /100WBC (0.0-0.0); PLATELET COUNT 291 10^3/UL (140-415); RED BLOOD COUNT 2.74 10^6/ul (4.20-5.40); RED CELL DISTRIBUTION WIDTH 15.9 % (11.5-14.5)
[2018-11-04 06:09] LABS: POSITIVE DIFF @See below
[2018-11-04 06:10] LABS: ADD MAN DIFF? YES
[2018-11-04 06:14] LABS: INR 1.99; PROTIME 22.7 Sec (11.9-14.9); PT RATIO 1.8
[2018-11-04 06:15] LABS: PARTIAL THROMBOPLASTIN TIME 35.4 Sec (23.0-35.0)
[2018-11-04 06:18] LABS: ANION GAP 6 (5-13); BLOOD UREA NITROGEN 26 mg/dl (7-20); CALCIUM 7.4 mg/dl (8.4-10.2); CARBON DIOXIDE 28 mmol/L (21-31); CHLORIDE 99 mmol/L (97-110); CREATININE 0.88 mg/dl (0.44-1.00); Estimated GFR > 60 mL/min (>60); GLUCOSE 109 mg/dl (70-220); MAGNESIUM 2.1 mg/dl (1.7-2.5); PHOSPHORUS 4.1 mg/dl (2.5-4.9); POTASSIUM 3.8 mmol/L (3.5-5.1); SODIUM 133 mmol/L (135-144)
[2018-11-04 07:06] LABS: ANISOCYTOSIS 2+ (0-0); BAND NEUTROPHILS % (M) 47 % (0-4); BURR CELLS 1+ (0-0); GIANT THROMBO% (M) 1 % (0-0); LYMPHOCYTES #M 0.3 10^3/ul (0.8-2.9); LYMPHOCYTES % (M) 2 % (15-51); METAMYELOCYTES #M 0.1 10^3/ul (0.0-0.0); METAMYELOCYTES %M 1 % (0-0); MONOCYTE #M 0.5 10^3/ul (0.3-0.9); MONOCYTES % (M) 3 % (0-11); PLATELET ESTIMATE NORMAL; POIKILOCYTOSIS 1+ (0-0); POLYCHROMASIA 2+ (0-0); SEG NEUT #M 9.6 10^3/ul (1.6-7.5); SEGMENTED NEUTROPHILS (M) % 48 % (39-77); SMUDGE%M 1 % (0-0); SPHEROCYTES 1+ (0-0); TOXIC GRANULATION 1+ (0-0)
[2018-11-04 08:11] LABS: ANISOCYTOSIS 2+ (0-0); BAND NEUTROPHILS #M 4.5 10^3/ul (0.0-0.6); BAND NEUTROPHILS % (M) 28 % (0-4); GIANT THROMBO% (M) 1 % (0-0); LYMPHOCYTES #M 0.4 10^3/ul (0.8-2.9); LYMPHOCYTES % (M) 3 % (15-51); MONOCYTE #M 0.3 10^3/ul (0.3-0.9); MONOCYTES % (M) 2 % (0-11); MYELOCYTES #M 0.1 10^3/ul (0.0-0.0); MYELOCYTES % (M) 1 % (0-0); OVALOCYTES 1+ (0-0); PLATELET ESTIMATE NORMAL; POIKILOCYTOSIS 2+ (0-0); POLYCHROMASIA 2+ (0-0); SEG NEUT #M 11.4 10^3/ul (1.6-7.5); SEGMENTED NEUTROPHILS (M) % 66 % (39-77); SMUDGE%M 6 % (0-0)
[2018-11-04] MEDS: MULTIVITAMINS THERAPEUTIC TAB PO (10:40)
[2018-11-04] MEDS: FLUTICASONE/VILANTEROL 200-25 INH DEVICE INH (10:40)
[2018-11-04] MEDS: predniSONE 20 MG TAB PO (10:40)
[2018-11-04] MEDS: BALSAM PERU/CASTOR OIL 60 GM TUBE TOP ×2 (12:04→20:53)
[2018-11-04] MEDS: COLLAGENASE 5 GM (UD JAR) TOP (12:04)
[2018-11-04] MEDS: DEXTROSE 5%-0.45% NACL 1,000 ML IV (12:04)
[2018-11-04] MEDS: PANTOPRAZOLE 40 MG INJ IV (17:28)
[2018-11-04] MEDS: HYDROmorphONE 0.5 MG/0.5 ML SYG IV ×2 (17:29→23:53)
[2018-11-05] MEDS: LEVALBUTEROL (NEB) 0.63 MG/3 ML AMP HHN ×6 (01:00→21:35)
[2018-11-05] MEDS: INSULIN ASPART [NOVOLOG] 3 ML PEN SC ×6 (01:00→21:00)
[2018-11-05] MEDS: MEROPENEM 1 GM/50ML(PMX) 50 ML IVPB ×3 (02:29→17:49)
[2018-11-05] MEDS: VANCOMYCIN 500 MG (PMX) 100 ML IVPB (02:37)
[2018-11-05] MEDS: DEXTROSE 5%-0.45% NACL 1,000 ML IV ×2 (03:06→17:49)
[2018-11-05] MEDS: HYDROmorphONE 0.5 MG/0.5 ML SYG IV ×2 (04:02→21:07)
[2018-11-05] MEDS: PANTOPRAZOLE 40 MG INJ IV ×2 (04:56→17:49)
[2018-11-05] MEDS: LORAZEPAM 2 MG INJ IV ×2 (06:45→22:31)
[2018-11-05] MEDS: FLUTICASONE/VILANTEROL 200-25 INH DEVICE INH (09:00)
[2018-11-05] MEDS: predniSONE 20 MG TAB PO (09:00)
[2018-11-05] MEDS: MULTIVITAMINS THERAPEUTIC TAB PO (09:00)
[2018-11-05 11:33] LABS: WHITE BLOOD COUNT 4.3 10^3/ul (4.8-10.8)
[2018-11-05 11:33] LABS: ABNORMAL IP MESSAGE 1; HEMATOCRIT 27.5 % (37.0-47.0); HEMOGLOBIN 8.9 g/dl (12.0-16.0); MEAN CORPUSCULAR HEMOGLOBIN 30.1 pg (29.0-33.0); MEAN CORPUSCULAR HGB CONC 32.4 g/dl (32.0-37.0); MEAN CORPUSCULAR VOLUME 92.9 fl (82.0-101.0); PLATELET COUNT 298 10^3/UL (140-415); RED BLOOD COUNT 2.96 10^6/ul (4.20-5.40); RED CELL DISTRIBUTION WIDTH 15.9 % (11.5-14.5)
[2018-11-05 11:38] LABS: ADD MAN DIFF? YES; POSITIVE DIFF @See below
[2018-11-05] MEDS: COLLAGENASE 5 GM (UD JAR) TOP (11:47)
[2018-11-05] MEDS: BALSAM PERU/CASTOR OIL 60 GM TUBE TOP ×2 (11:47→21:06)
[2018-11-05 11:53] LABS: ANION GAP 4 (5-13); BLOOD UREA NITROGEN 18 mg/dl (7-20); CALCIUM 7.6 mg/dl (8.4-10.2); CARBON DIOXIDE 28 mmol/L (21-31); CHLORIDE 102 mmol/L (97-110); Estimated GFR > 60 mL/min (>60); GLUCOSE 104 mg/dl (70-220); POTASSIUM 3.8 mmol/L (3.5-5.1); SODIUM 134 mmol/L (135-144)
[2018-11-05 12:18] LABS: ANISOCYTOSIS 2+ (0-0); BAND NEUTROPHILS #M 0.9 10^3/ul (0.0-0.6); BAND NEUTROPHILS % (M) 21 % (0-4); EOSINOPHILS % (M) 1 % (0-7); ERYTHROBLAST% (NRBC) (M) 1 % (0-0); LYMPHOCYTES #M 0.2 10^3/ul (0.8-2.9); LYMPHOCYTES % (M) 6 % (15-51); MONOCYTES % (M) 2 % (0-11); PLATELET ESTIMATE NORMAL; PLATELET MORPHOLOGY COMMENT @See below; POLYCHROMASIA 2+ (0-0); SEGMENTED NEUTROPHILS (M) % 70 % (39-77); SMUDGE%M 8 % (0-0)
[2018-11-05] MEDS: METHADONE (1 MG/ML 5 ML PO UD SYG) PO (21:44)
[2018-11-05] MEDS ORDERED: GLUCAGON 1 MG INJ IM (22:00)
[2018-11-05] MEDS ORDERED: GLUCOSE GEL 15 GRAM TUBE BUCCAL (22:00)
[2018-11-05] MEDS ORDERED: GLUCOSE GEL 15 GRAM TUBE PO (22:00)
[2018-11-05] MEDS: DEXTROSE 50% 50 ML SYRINGE IV (22:15)
[2018-11-05] MEDS: HYDROCODONE/APAP (5/325) TAB PO (23:44)
[2018-11-06] MEDS: INSULIN ASPART [NOVOLOG] 3 ML PEN SC ×6 (00:49→21:00)
[2018-11-06] MEDS: LEVALBUTEROL (NEB) 0.63 MG/3 ML AMP HHN ×6 (01:55→21:03)
[2018-11-06] MEDS: MEROPENEM 1 GM/50ML(PMX) 50 ML IVPB ×3 (03:17→17:35)
[2018-11-06] MEDS: VANCOMYCIN 500 MG (PMX) 100 ML IVPB (03:24)
[2018-11-06] MEDS: HYDROmorphONE 0.5 MG/0.5 ML SYG IV (03:25)
[2018-11-06] MEDS: PANTOPRAZOLE 40 MG INJ IV ×2 (06:03→17:36)
[2018-11-06] MEDS: DEXTROSE 5%-0.45% NACL 1,000 ML IV (06:04)
[2018-11-06 06:34] LABS: ABNORMAL IP MESSAGE 1; HEMATOCRIT 26.7 % (37.0-47.0); HEMOGLOBIN 8.7 g/dl (12.0-16.0); MEAN CORPUSCULAR HEMOGLOBIN 30.4 pg (29.0-33.0); MEAN CORPUSCULAR HGB CONC 32.6 g/dl (32.0-37.0); MEAN CORPUSCULAR VOLUME 93.4 fl (82.0-101.0); MEAN PLATELET VOLUME 10.8 fl (7.4-10.4); PLATELET COUNT 228 10^3/UL (140-415); RED BLOOD COUNT 2.86 10^6/ul (4.20-5.40); RED CELL DISTRIBUTION WIDTH 15.6 % (11.5-14.5)
[2018-11-06 06:40] LABS: ADD MAN DIFF? YES; POSITIVE DIFF @See below
[2018-11-06 07:11] LABS: ANION GAP 5 (5-13); BLOOD UREA NITROGEN 12 mg/dl (7-20); CALCIUM 7.4 mg/dl (8.4-10.2); CARBON DIOXIDE 29 mmol/L (21-31); CHLORIDE 102 mmol/L (97-110); CREATININE 0.56 mg/dl (0.44-1.00); Estimated GFR > 60 mL/min (>60); GLUCOSE 119 mg/dl (70-220); MAGNESIUM 1.7 mg/dl (1.7-2.5); PHOSPHORUS 2.5 mg/dl (2.5-4.9); POTASSIUM 3.2 mmol/L (3.5-5.1); SODIUM 136 mmol/L (135-144)
[2018-11-06] MEDS: FLUTICASONE/VILANTEROL 200-25 INH DEVICE INH (09:00)
[2018-11-06] MEDS: predniSONE 20 MG TAB PO (09:00)
[2018-11-06] MEDS: MULTIVITAMINS THERAPEUTIC TAB PO (09:00)
[2018-11-06] MEDS: BALSAM PERU/CASTOR OIL 60 GM TUBE TOP ×2 (09:00→21:43)
[2018-11-06] MEDS: DEXTROSE 50% 50 ML SYRINGE IV ×4 (09:02→21:39)
[2018-11-06] MEDS: POTASSIUM CHLORIDE 100 ML IVPB ×2 (09:29→11:05)
[2018-11-06 09:58] LABS: ANISOCYTOSIS 1+ (0-0); BAND NEUTROPHILS #M 1.7 10^3/ul (0.0-0.6); BAND NEUTROPHILS % (M) 58 % (0-4); EOSINOPHILS % (M) 2 % (0-7); HYPOCHROMASIA 1+ (0-0); LYMPHOCYTES % (M) 3 % (15-51); MONOCYTE #M 0.1 10^3/ul (0.3-0.9); MONOCYTES % (M) 5 % (0-11); MYELOCYTES % (M) 1 % (0-0); PLATELET ESTIMATE NORMAL; POLYCHROMASIA 3+ (0-0); REACTIVE LYMPHOCYTES% (M) 1 % (0-0); SEGMENTED NEUTROPHILS (M) % 30 % (39-77); SMUDGE%M 5 % (0-0)
[2018-11-06] MEDS: COLLAGENASE 5 GM (UD JAR) TOP (12:45)
[2018-11-06] MEDS: morphine 2 MG INJ IV (19:40)
[2018-11-06] MEDS: MUPIROCIN 2% 22 GM OINT TOP (21:42)
[2018-11-07] MEDS: LORAZEPAM 2 MG INJ IV ×3 (00:05→20:17)
[2018-11-07 00:28] LABS: GLUCOSE 124 mg/dl (70-220)
[2018-11-07] MEDS: LEVALBUTEROL (NEB) 0.63 MG/3 ML AMP HHN ×6 (01:00→20:09)
[2018-11-07] MEDS: INSULIN ASPART [NOVOLOG] 3 ML PEN SC ×6 (01:00→20:16)
[2018-11-07] MEDS: MEROPENEM 1 GM/50ML(PMX) 50 ML IVPB ×3 (02:50→17:51)
[2018-11-07] MEDS: HYDROmorphONE 0.5 MG/0.5 ML SYG IV ×3 (04:23→22:28)
[2018-11-07] MEDS: PANTOPRAZOLE 40 MG INJ IV ×2 (06:41→17:51)
[2018-11-07 07:42] LABS: WHITE BLOOD COUNT 3.4 10^3/ul (4.8-10.8)
[2018-11-07 07:42] LABS: ABNORMAL IP MESSAGE 1; HEMATOCRIT 25.9 % (37.0-47.0); HEMOGLOBIN 8.2 g/dl (12.0-16.0); MEAN CORPUSCULAR HEMOGLOBIN 29.7 pg (29.0-33.0); MEAN CORPUSCULAR HGB CONC 31.7 g/dl (32.0-37.0); MEAN CORPUSCULAR VOLUME 93.8 fl (82.0-101.0); MEAN PLATELET VOLUME 11.4 fl (7.4-10.4); PLATELET COUNT 173 10^3/UL (140-415); RED BLOOD COUNT 2.76 10^6/ul (4.20-5.40); RED CELL DISTRIBUTION WIDTH 15.7 % (11.5-14.5)
[2018-11-07 07:51] LABS: ADD MAN DIFF? YES; POSITIVE DIFF @See below
[2018-11-07 07:57] LABS: ANION GAP 3 (5-13); BLOOD UREA NITROGEN 8 mg/dl (7-20); CALCIUM 7.1 mg/dl (8.4-10.2); CARBON DIOXIDE 30 mmol/L (21-31); CHLORIDE 98 mmol/L (97-110); CREATININE 0.47 mg/dl (0.44-1.00); Estimated GFR > 60 mL/min (>60); GLUCOSE 104 mg/dl (70-220); SODIUM 131 mmol/L (135-144)
[2018-11-07 08:03] LABS: POTASSIUM 2.9 mmol/L (3.5-5.1)
[2018-11-07] MEDS: MULTIVITAMINS THERAPEUTIC TAB PO (08:31)
[2018-11-07] MEDS: predniSONE 20 MG TAB PO (08:31)
[2018-11-07] MEDS: MUPIROCIN 2% 22 GM OINT TOP ×2 (08:38→20:16)
[2018-11-07] MEDS: BALSAM PERU/CASTOR OIL 60 GM TUBE TOP ×2 (08:38→20:17)
[2018-11-07] MEDS: FLUTICASONE/VILANTEROL 200-25 INH DEVICE INH (08:39)
[2018-11-07] MEDS: COLLAGENASE 5 GM (UD JAR) TOP (08:39)
[2018-11-07] MEDS: POTASSIUM CHLORIDE 100 ML IVPB ×2 (09:17→11:17)
[2018-11-07 09:24] LABS: ANISOCYTOSIS 1+ (0-0); BAND NEUTROPHILS #M 1.9 10^3/ul (0.0-0.6); BAND NEUTROPHILS % (M) 57 % (0-4); BURR CELLS 1+ (0-0); EOSINOPHILS % (M) 7 % (0-7); GIANT THROMBO% (M) 2 % (0-0); LYMPHOCYTES #M 0.2 10^3/ul (0.8-2.9); LYMPHOCYTES % (M) 6 % (15-51); METAMYELOCYTES %M 1 % (0-0); MONOCYTE #M 0.3 10^3/ul (0.3-0.9); MONOCYTES % (M) 10 % (0-11); PLATELET ESTIMATE NORMAL; POIKILOCYTOSIS 1+ (0-0); POLYCHROMASIA 2+ (0-0); SEG NEUT #M 0.7 10^3/ul (1.6-7.5); SEGMENTED NEUTROPHILS (M) % 19 % (39-77); SMUDGE%M 19 % (0-0)
[2018-11-07] MEDS: D5-NS + KCL 20 MEQ 1,000 ML IV (14:48)
[2018-11-08] MEDS: LEVALBUTEROL (NEB) 0.63 MG/3 ML AMP HHN ×6 (01:00→21:00)
[2018-11-08] MEDS: INSULIN ASPART [NOVOLOG] 3 ML PEN SC ×6 (01:00→20:45)
[2018-11-08] MEDS: LORAZEPAM 2 MG INJ IV (02:13)
[2018-11-08] MEDS: MEROPENEM 1 GM/50ML(PMX) 50 ML IVPB ×3 (02:49→17:35)
[2018-11-08] MEDS: D5-NS + KCL 20 MEQ 1,000 ML IV ×3 (03:20→21:44)
[2018-11-08] MEDS: HYDROmorphONE 0.5 MG/0.5 ML SYG IV ×3 (03:42→19:40)
[2018-11-08] MEDS: NACL IV (05:45)
[2018-11-08] MEDS: MULTIVITAMINS IV (05:45)
[2018-11-08] MEDS: DEXTROSE IV (05:45)
[2018-11-08] MEDS: POTASSIUM CHLORIDE IV (05:45)
[2018-11-08] MEDS: PANTOPRAZOLE 40 MG INJ IV ×2 (05:51→17:22)
[2018-11-08] MEDS: predniSONE 20 MG TAB PO (07:37)
[2018-11-08] MEDS: MULTIVITAMINS THERAPEUTIC TAB PO (07:37)
[2018-11-08] MEDS: FLUTICASONE/VILANTEROL 200-25 INH DEVICE INH (09:00)
[2018-11-08] MEDS: COLLAGENASE 5 GM (UD JAR) TOP (09:24)
[2018-11-08] MEDS: METHADONE (1 MG/ML 5 ML PO UD SYG) SL ×4 (09:30→20:32)
[2018-11-08] MEDS: MUPIROCIN 2% 22 GM OINT TOP ×2 (09:37→20:44)
[2018-11-08] MEDS: BALSAM PERU/CASTOR OIL 60 GM TUBE TOP ×2 (09:37→20:44)
[2018-11-08] MEDS ORDERED: MULTIVITAMINS IV (10:00)
[2018-11-08] MEDS ORDERED: KCL IV (10:00)
[2018-11-08] MEDS ORDERED: D5 NS IV (10:00)
[2018-11-08] MEDS ORDERED: [UNRECOGNIZED DRUG - OTHER] IV (10:00)
[2018-11-08] MEDS: SOD CHLORIDE 0.9% 500 ML IV (14:01)
[2018-11-08 14:59] LABS: WHITE BLOOD COUNT 4.8 10^3/ul (4.8-10.8)
[2018-11-08 14:59] LABS: ABNORMAL IP MESSAGE 1; HEMATOCRIT 24.1 % (37.0-47.0); HEMOGLOBIN 7.8 g/dl (12.0-16.0); MEAN CORPUSCULAR HEMOGLOBIN 30.4 pg (29.0-33.0); MEAN CORPUSCULAR HGB CONC 32.4 g/dl (32.0-37.0); MEAN CORPUSCULAR VOLUME 93.8 fl (82.0-101.0); PLATELET COUNT 158 10^3/UL (140-415); RED BLOOD COUNT 2.57 10^6/ul (4.20-5.40); RED CELL DISTRIBUTION WIDTH 15.5 % (11.5-14.5)
[2018-11-08 15:11] LABS: ADD MAN DIFF? YES; POSITIVE DIFF @See below
[2018-11-08 15:21] LABS: ANION GAP 1 (5-13); BLOOD UREA NITROGEN 6 mg/dl (7-20); CALCIUM 7.1 mg/dl (8.4-10.2); CARBON DIOXIDE 31 mmol/L (21-31); CHLORIDE 103 mmol/L (97-110); CREATININE 0.48 mg/dl (0.44-1.00); Estimated GFR > 60 mL/min (>60); GLUCOSE 120 mg/dl (70-220); MAGNESIUM 1.5 mg/dl (1.7-2.5); PHOSPHORUS 1.8 mg/dl (2.5-4.9); POTASSIUM 3.3 mmol/L (3.5-5.1); SODIUM 135 mmol/L (135-144)
[2018-11-08 16:15] LABS: ANISOCYTOSIS 2+ (0-0); BAND NEUTROPHILS % (M) 1 % (0-4); EOSINOPHILS % (M) 1 % (0-7); LYMPHOCYTES #M 0.2 10^3/ul (0.8-2.9); LYMPHOCYTES % (M) 5 % (15-51); MONOCYTES % (M) 1 % (0-11); SEG NEUT #M 4.4 10^3/ul (1.6-7.5); SEGMENTED NEUTROPHILS (M) % 92 % (39-77); SMUDGE%M 58 % (0-0)
[2018-11-08] MEDS: MAGNESIUM SULFATE 2 GM/50 ML 50 ML IVPB (16:17)
[2018-11-08] MEDS: POTASSIUM CHLORIDE 20 MEQ/SW 100 ML IVPB ×2 (18:30→21:44)
[2018-11-08] MEDS ORDERED: POTASSIUM CHLORIDE 50 ML IVPB (19:00)
[2018-11-09] MEDS: METHADONE (1 MG/ML 5 ML PO UD SYG) SL ×6 (00:45→20:53)
[2018-11-09] MEDS: INSULIN ASPART [NOVOLOG] 3 ML PEN SC ×6 (01:00→21:00)
[2018-11-09] MEDS: LEVALBUTEROL (NEB) 0.63 MG/3 ML AMP HHN ×6 (01:00→21:00)
[2018-11-09] MEDS: LORAZEPAM 2 MG INJ IV (01:32)
[2018-11-09] MEDS: MEROPENEM 1 GM/50ML(PMX) 50 ML IVPB ×3 (02:53→17:31)
[2018-11-09] MEDS: NACL IV ×2 (04:00→10:01)
[2018-11-09] MEDS: DEXTROSE IV ×2 (04:00→10:01)
[2018-11-09] MEDS: POTASSIUM CHLORIDE IV ×2 (04:00→10:01)
[2018-11-09] MEDS: MULTIVITAMINS IV ×2 (04:00→10:01)
[2018-11-09] MEDS: HYDROmorphONE 0.5 MG/0.5 ML SYG IV ×2 (04:21→22:13)
[2018-11-09] MEDS: PANTOPRAZOLE 40 MG INJ IV ×2 (05:31→17:30)
[2018-11-09 06:59] LABS: WHITE BLOOD COUNT 5.7 10^3/ul (4.8-10.8)
[2018-11-09 06:59] LABS: ABNORMAL IP MESSAGE 1; HEMATOCRIT 24.2 % (37.0-47.0); HEMOGLOBIN 7.7 g/dl (12.0-16.0); MEAN CORPUSCULAR HEMOGLOBIN 29.7 pg (29.0-33.0); MEAN CORPUSCULAR HGB CONC 31.8 g/dl (32.0-37.0); MEAN CORPUSCULAR VOLUME 93.4 fl (82.0-101.0); PLATELET COUNT 163 10^3/UL (140-415); RED BLOOD COUNT 2.59 10^6/ul (4.20-5.40); RED CELL DISTRIBUTION WIDTH 15.6 % (11.5-14.5)
[2018-11-09 07:05] LABS: ADD MAN DIFF? YES; POSITIVE DIFF @See below
[2018-11-09 07:19] LABS: ANION GAP 2 (5-13); BLOOD UREA NITROGEN 6 mg/dl (7-20); CARBON DIOXIDE 28 mmol/L (21-31); CHLORIDE 107 mmol/L (97-110); CREATININE 0.38 mg/dl (0.44-1.00); Estimated GFR > 60 mL/min (>60); GLUCOSE 115 mg/dl (70-220); MAGNESIUM 1.9 mg/dl (1.7-2.5); PHOSPHORUS 1.7 mg/dl (2.5-4.9); POTASSIUM 4.2 mmol/L (3.5-5.1); SODIUM 137 mmol/L (135-144)
[2018-11-09] MEDS: MULTIVITAMINS THERAPEUTIC TAB PO (08:00)
[2018-11-09] MEDS: COLLAGENASE 5 GM (UD JAR) TOP (08:30)
[2018-11-09] MEDS: MUPIROCIN 2% 22 GM OINT TOP ×2 (08:31→20:51)
[2018-11-09] MEDS: FLUTICASONE/VILANTEROL 200-25 INH DEVICE INH (08:31)
[2018-11-09] MEDS: BALSAM PERU/CASTOR OIL 60 GM TUBE TOP ×2 (08:31→20:52)
[2018-11-09] MEDS: D5-NS + KCL 20 MEQ 1,000 ML IV ×2 (08:33→22:24)
[2018-11-09 09:07] LABS: ANISOCYTOSIS 1+ (0-0); BAND NEUTROPHILS % (M) 18 % (0-4); BASOPHILS % (M) 1 % (0-2); BURR CELLS 1+ (0-0); EOSINOPHILS % (M) 2 % (0-7); GIANT THROMBO% (M) 2 % (0-0); HYPOCHROMASIA 1+ (0-0); LYMPHOCYTES #M 0.5 10^3/ul (0.8-2.9); LYMPHOCYTES % (M) 9 % (15-51); MONOCYTE #M 0.2 10^3/ul (0.3-0.9); MONOCYTES % (M) 4 % (0-11); OVALOCYTES 1+ (0-0); PLATELET ESTIMATE NORMAL; POLYCHROMASIA 1+ (0-0); SEG NEUT #M 3.8 10^3/ul (1.6-7.5); SEGMENTED NEUTROPHILS (M) % 66 % (39-77); SMUDGE%M 11 % (0-0)
[2018-11-09] MEDS: ONDANSETRON 4 MG INJ IV (13:19)
[2018-11-09] MEDS: POTASSIUM PHOSPHATE 30 MM in SOD CHLORIDE 0.9% 250 ML IVPB (17:32)
[2018-11-09] MEDS ORDERED: TPN 1,000 ML IV (22:53)
[2018-11-10] MEDS: METHADONE (1 MG/ML 5 ML PO UD SYG) SL ×6 (00:55→20:24)
[2018-11-10] MEDS: INSULIN ASPART [NOVOLOG] 3 ML PEN SC ×6 (00:57→20:25)
[2018-11-10] MEDS: LEVALBUTEROL (NEB) 0.63 MG/3 ML AMP HHN ×6 (01:00→21:00)
[2018-11-10] MEDS: DEXTROSE 50% 50 ML SYRINGE IV (01:04)
[2018-11-10] MEDS: MEROPENEM 1 GM/50ML(PMX) 50 ML IVPB ×3 (02:15→18:49)
[2018-11-10] MEDS: PANTOPRAZOLE 40 MG INJ IV ×2 (05:59→18:49)
[2018-11-10 07:34] LABS: WHITE BLOOD COUNT 4.4 10^3/ul (4.8-10.8)
[2018-11-10 07:34] LABS: ABNORMAL IP MESSAGE 1; HEMOGLOBIN 8.5 g/dl (12.0-16.0); MEAN CORPUSCULAR HEMOGLOBIN 29.2 pg (29.0-33.0); MEAN CORPUSCULAR HGB CONC 30.4 g/dl (32.0-37.0); MEAN CORPUSCULAR VOLUME 96.2 fl (82.0-101.0); MEAN PLATELET VOLUME 11.6 fl (7.4-10.4); PLATELET COUNT 208 10^3/UL (140-415); RED BLOOD COUNT 2.91 10^6/ul (4.20-5.40); RED CELL DISTRIBUTION WIDTH 16.1 % (11.5-14.5)
[2018-11-10 07:41] LABS: POSITIVE DIFF @See below
[2018-11-10 07:42] LABS: ADD MAN DIFF? YES
[2018-11-10 08:06] LABS: MAGNESIUM 1.8 mg/dl (1.7-2.5)
[2018-11-10 08:06] LABS: PHOSPHORUS 3.1 mg/dl (2.5-4.9)
[2018-11-10 08:07] LABS: ALANINE AMINOTRANSFERASE 63 IU/L (13-69); ALBUMIN/GLOBULIN RATIO 0.62; ALKALINE PHOSPHATASE 71 IU/L (42-121); ANION GAP 3 (5-13); ASPARTATE AMINO TRANSFERASE 51 IU/L (15-46); BILIRUBIN,INDIRECT 0.4 mg/dl (0-1.1); BILIRUBIN,TOTAL 0.4 mg/dl (0.2-1.3); BLOOD UREA NITROGEN 6 mg/dl (7-20); CALCIUM 7.6 mg/dl (8.4-10.2); CARBON DIOXIDE 32 mmol/L (21-31); CHLORIDE 105 mmol/L (97-110); CREATININE 0.48 mg/dl (0.44-1.00); Estimated GFR > 60 mL/min (>60); GLUCOSE 113 mg/dl (70-220); POTASSIUM 4.3 mmol/L (3.5-5.1); SODIUM 140 mmol/L (135-144); TOTAL PROTEIN 5.2 g/dl (6.1-8.1); TRIGLYCERIDES 158 mg/dl (0-149)
[2018-11-10 08:49] LABS: PREALBUMIN 3.1 mg/dl (17.6-36.0)
[2018-11-10] MEDS: IOHEXOL 300MG/ML 150 ML BTL (09:30)
[2018-11-10] MEDS: COLLAGENASE 5 GM (UD JAR) TOP (09:31)
[2018-11-10] MEDS: MUPIROCIN 2% 22 GM OINT TOP ×2 (09:32→20:25)
[2018-11-10] MEDS: FLUTICASONE/VILANTEROL 200-25 INH DEVICE INH (09:32)
[2018-11-10] MEDS: MULTIVITAMINS THERAPEUTIC TAB PO (09:32)
[2018-11-10] MEDS: BALSAM PERU/CASTOR OIL 60 GM TUBE TOP ×2 (09:32→20:25)
[2018-11-10 09:36] LABS: ANISOCYTOSIS 2+ (0-0); BAND NEUTROPHILS #M 0.7 10^3/ul (0.0-0.6); BAND NEUTROPHILS % (M) 16 % (0-4); EOSINOPHILS % (M) 4 % (0-7); HYPOCHROMASIA 1+ (0-0); LYMPHOCYTES #M 0.4 10^3/ul (0.8-2.9); LYMPHOCYTES % (M) 10 % (15-51); MONOCYTES % (M) 2 % (0-11); PLATELET ESTIMATE NORMAL; POIKILOCYTOSIS 1+ (0-0); POLYCHROMASIA 3+ (0-0); SEGMENTED NEUTROPHILS (M) % 68 % (39-77); SMUDGE%M 4 % (0-0)
[2018-11-10] MEDS: D5-NS + KCL 20 MEQ 1,000 ML IV (12:57)
[2018-11-10] MEDS: ENOXAPARIN 40 MG/0.4 ML SYG SC (16:12)
[2018-11-10] MEDS: LIDOCAINE 1% (MPF) 5 ML VIAL SC (18:49)
[2018-11-10] MEDS: HYDROmorphONE 0.5 MG/0.5 ML SYG IV (21:56)
[2018-11-11] MEDS: INSULIN ASPART [NOVOLOG] 3 ML PEN SC ×7 (00:49→21:00)
[2018-11-11] MEDS: LORAZEPAM 2 MG INJ IV ×3 (00:50→18:29)
[2018-11-11] MEDS: METHADONE (1 MG/ML 5 ML PO UD SYG) SL ×6 (00:50→21:00)
[2018-11-11] MEDS: LEVALBUTEROL (NEB) 0.63 MG/3 ML AMP HHN ×6 (01:00→21:00)
[2018-11-11] MEDS: D5-NS + KCL 20 MEQ 1,000 ML IV ×2 (01:10→05:09)
[2018-11-11] MEDS: MEROPENEM 1 GM/50ML(PMX) 50 ML IVPB ×3 (02:55→17:38)
[2018-11-11] MEDS: NACL IV (05:09)
[2018-11-11] MEDS: DEXTROSE IV (05:09)
[2018-11-11] MEDS: MULTIVITAMINS IV (05:09)
[2018-11-11] MEDS: POTASSIUM CHLORIDE IV (05:09)
[2018-11-11] MEDS: PANTOPRAZOLE 40 MG INJ IV ×2 (05:33→16:56)
[2018-11-11 07:51] LABS: ANION GAP 2 (5-13); BLOOD UREA NITROGEN 5 mg/dl (7-20); CALCIUM 7.7 mg/dl (8.4-10.2); CARBON DIOXIDE 33 mmol/L (21-31); CHLORIDE 102 mmol/L (97-110); Estimated GFR > 60 mL/min (>60); GLUCOSE 94 mg/dl (70-220); POTASSIUM 4.4 mmol/L (3.5-5.1); SODIUM 137 mmol/L (135-144)
[2018-11-11] MEDS: MULTIVITAMINS THERAPEUTIC TAB PO ×2 (09:00→09:17)
[2018-11-11] MEDS: COLLAGENASE 5 GM (UD JAR) TOP (09:17)
[2018-11-11] MEDS: MUPIROCIN 2% 22 GM OINT TOP ×2 (09:17→21:00)
[2018-11-11] MEDS: FLUTICASONE/VILANTEROL 200-25 INH DEVICE INH (09:18)
[2018-11-11] MEDS: BALSAM PERU/CASTOR OIL 60 GM TUBE TOP ×2 (09:20→21:00)
[2018-11-11] MEDS: ENOXAPARIN 40 MG/0.4 ML SYG SC (09:32)
[2018-11-11] MEDS: TPN 1,000 ML IV (17:31)
[2018-11-12] MEDS: LEVALBUTEROL (NEB) 0.63 MG/3 ML AMP HHN ×7 (00:58→21:00)
[2018-11-12] MEDS: MEROPENEM 1 GM/50ML(PMX) 50 ML IVPB ×3 (02:30→17:52)
[2018-11-12] MEDS: METHADONE (1 MG/ML 5 ML PO UD SYG) SL ×6 (02:33→21:00)
[2018-11-12] MEDS: LORAZEPAM 2 MG INJ IV (05:11)
[2018-11-12] MEDS: PANTOPRAZOLE 40 MG INJ IV ×2 (05:12→17:52)
[2018-11-12 07:33] LABS: ANION GAP 0 (5-13); BLOOD UREA NITROGEN 10 mg/dl (7-20); CALCIUM 7.6 mg/dl (8.4-10.2); CARBON DIOXIDE 36 mmol/L (21-31); CHLORIDE 97 mmol/L (97-110); CREATININE 0.47 mg/dl (0.44-1.00); Estimated GFR > 60 mL/min (>60); GLUCOSE 142 mg/dl (70-220); MAGNESIUM 1.5 mg/dl (1.7-2.5); PHOSPHORUS 2.3 mg/dl (2.5-4.9); POTASSIUM 3.7 mmol/L (3.5-5.1); SODIUM 133 mmol/L (135-144)
[2018-11-12] MEDS: INSULIN ASPART [NOVOLOG] 3 ML PEN SC ×4 (08:37→21:00)
[2018-11-12] MEDS: BALSAM PERU/CASTOR OIL 60 GM TUBE TOP ×2 (08:58→21:00)
[2018-11-12] MEDS: MUPIROCIN 2% 22 GM OINT TOP ×2 (08:58→21:00)
[2018-11-12] MEDS: FLUTICASONE/VILANTEROL 200-25 INH DEVICE INH (08:58)
[2018-11-12] MEDS: COLLAGENASE 5 GM (UD JAR) TOP (08:59)
[2018-11-12] MEDS: ENOXAPARIN 40 MG/0.4 ML SYG SC (09:02)
[2018-11-12 09:14] LABS: WHITE BLOOD COUNT 10.3 10^3/ul (4.8-10.8)
[2018-11-12 09:14] LABS: HEMATOCRIT 26.4 % (37.0-47.0); MEAN CORPUSCULAR HEMOGLOBIN 29.3 pg (29.0-33.0); MEAN CORPUSCULAR HGB CONC 30.3 g/dl (32.0-37.0); MEAN CORPUSCULAR VOLUME 96.7 fl (82.0-101.0); MEAN PLATELET VOLUME 11.1 fl (7.4-10.4); PLATELET COUNT 206 10^3/UL (140-415); RED BLOOD COUNT 2.73 10^6/ul (4.20-5.40); RED CELL DISTRIBUTION WIDTH 15.4 % (11.5-14.5)
[2018-11-12 09:15] LABS: ADD MAN DIFF? YES; POSITIVE DIFF @See below
[2018-11-12 10:18] LABS: ANISOCYTOSIS 1+ (0-0); BAND NEUTROPHILS #M 3.2 10^3/ul (0.0-0.6); BAND NEUTROPHILS % (M) 32 % (0-4); BASOPHIL #M 0.1 10^3/ul (0.0-0.0); BASOPHILS % (M) 1 % (0-2); EOSINOPHILS % (M) 5 % (0-7); GIANT THROMBO% (M) 3 % (0-0); LYMPHOCYTES #M 0.3 10^3/ul (0.8-2.9); LYMPHOCYTES % (M) 3 % (15-51); MONOCYTE #M 0.4 10^3/ul (0.3-0.9); MONOCYTES % (M) 4 % (0-11); PLATELET ESTIMATE NORMAL; POIKILOCYTOSIS 1+ (0-0); POLYCHROMASIA 1+ (0-0); REACTIVE LYMPHOCYTES #M 0.5 10^3/ul (0.0-0.0); REACTIVE LYMPHOCYTES% (M) 5 % (0-0); SEG NEUT #M 5.5 10^3/ul (1.6-7.5); SEGMENTED NEUTROPHILS (M) % 50 % (39-77); SMUDGE%M 21 % (0-0); TARGET CELLS 1+ (0-0)
[2018-11-12] MEDS: TPN 1,000 ML IV (10:56)
[2018-11-12] MEDS: MULTIVITAMINS THERAPEUTIC TAB PO (11:01)
[2018-11-12] MEDS: MAGNESIUM SULFATE 2 GM/50 ML 50 ML IVPB (12:25)
[2018-11-12] MEDS: POTASSIUM PHOSPHATE 7.5 MM in SOD CHLORIDE 0.9% 250 ML IV (15:28)
[2018-11-12] MEDS: SOD CHLORIDE 0.9% 100 ML (15:30)
[2018-11-12] MEDS: IOHEXOL 300MG/ML 150 ML BTL (15:31)
[2018-11-12] MEDS ORDERED: MIDAZOLAM 1 MG/ML 2 ML INJ (21:07)
[2018-11-12] MEDS: BUPIVACAINE 0.25%/EPI (SDV) 30 ML INJ (21:56)
[2018-11-12] MEDS: LIDOCAINE 1% (MPF) 30 ML INJ (21:56)
[2018-11-12] MEDS ORDERED: PHENYLephrine 10 MG INJ ×2 (22:08→23:21)
[2018-11-12] MEDS ORDERED: ETOMIDATE 20 MG INJ (23:16)
[2018-11-12] MEDS ORDERED: ROCURONIUM 50 MG INJ (23:16)
[2018-11-12] MEDS ORDERED: LIDOCAINE 2% (SDV) 5 ML INJ (23:16)
[2018-11-12] MEDS ORDERED: GLYCOPYRROLATE 0.4 MG INJ (23:17)
[2018-11-12] MEDS ORDERED: CEFAZOLIN 1 GM INJ (23:17)
[2018-11-12] MEDS ORDERED: NEOSTIGMINE 3 MG/3 ML SYRINGE (23:17)
[2018-11-12] MEDS ORDERED: metroNIDAZOLE 500 MG/NS (PMX) 100 ML IVPB (23:17)
[2018-11-12] MEDS ORDERED: ONDANSETRON 4 MG INJ (23:23)
[2018-11-13] MEDS ORDERED: DIPHENHYDRAMINE 50 MG INJ IV (00:30)
[2018-11-13] MEDS ORDERED: LORAZEPAM 2 MG INJ IV (00:30)
[2018-11-13] MEDS ORDERED: ONDANSETRON 4 MG INJ IV (00:30)
[2018-11-13] MEDS ORDERED: FENTAnyl 50 MCG/ML VIAL IV (00:30)
[2018-11-13] MEDS ORDERED: morphine 2 MG INJ IV (00:30)
[2018-11-13] MEDS ORDERED: HYDROmorphONE 0.5 MG/0.5 ML SYG IV ×2 (00:30)
[2018-11-13] MEDS: HYDROmorphONE 0.5 MG/0.5 ML SYG IV ×3 (00:47→14:27)
[2018-11-13] MEDS: LEVALBUTEROL (NEB) 0.63 MG/3 ML AMP HHN ×6 (00:56→20:29)
[2018-11-13] MEDS ORDERED: DEXTROSE 5%-0.9% NACL 1,000 ML IV (01:30)
[2018-11-13] MEDS: METHADONE (1 MG/ML 5 ML PO UD SYG) SL ×6 (01:48→21:11)
[2018-11-13] MEDS: MEROPENEM 1 GM/50ML(PMX) 50 ML IVPB ×3 (01:49→18:35)
[2018-11-13] MEDS: METHYLPREDNISOLONE 40 MG INJ IV (01:49)
[2018-11-13] MEDS: SOD CHLORIDE 0.9% 250 ML IV ×2 (01:52→02:27)
[2018-11-13] MEDS: PHENYLephrine 20MG IN 250 ML 250 ML IV ×2 (04:02→05:35)
[2018-11-13] MEDS: TPN 1,000 ML IV ×2 (04:05→20:52)
[2018-11-13 04:48] LABS: AADO2 Arterial 47.1 mmHg (7.0-24.0); Allen Test ACCEPTAB; Arterial Base Excess 6.9 mmol/L (-3.0-3); Arterial Blood Gas Oxygen Sat 97.6 mmHG (95.0-98.0); Arterial COHb 0.6 % (0.0-3.0); Arterial Fraction of Oxyhgb 96.5 % (93.0-99.0); Arterial HCO3 33.1 mmol/L (22.0-26.0); Arterial MetHb 0.5 % (0.0-1.5); Arterial pCO2 57.9 mmhg (35-45); MODE NASAL CANNULA; Site Right Radial
[2018-11-13 04:57] LABS: WHITE BLOOD COUNT 10.2 10^3/ul (4.8-10.8)
[2018-11-13 04:57] LABS: ABNORMAL IP MESSAGE 1; HEMATOCRIT 24.8 % (37.0-47.0); HEMOGLOBIN 7.4 g/dl (12.0-16.0); MEAN CORPUSCULAR HGB CONC 29.8 g/dl (32.0-37.0); MEAN CORPUSCULAR VOLUME 97.3 fl (82.0-101.0); MEAN PLATELET VOLUME 11.5 fl (7.4-10.4); PLATELET COUNT 185 10^3/UL (140-415); RED BLOOD COUNT 2.55 10^6/ul (4.20-5.40); RED CELL DISTRIBUTION WIDTH 15.4 % (11.5-14.5)
[2018-11-13 05:24] LABS: ANION GAP 0 (5-13); BLOOD UREA NITROGEN 12 mg/dl (7-20); CALCIUM 7.8 mg/dl (8.4-10.2); CARBON DIOXIDE 35 mmol/L (21-31); CHLORIDE 99 mmol/L (97-110); CREATININE 0.49 mg/dl (0.44-1.00); Estimated GFR > 60 mL/min (>60); GLUCOSE 89 mg/dl (70-220); MAGNESIUM 1.7 mg/dl (1.7-2.5); PHOSPHORUS 3.3 mg/dl (2.5-4.9); POTASSIUM 3.8 mmol/L (3.5-5.1); SODIUM 134 mmol/L (135-144)
[2018-11-13 05:25] LABS: POSITIVE DIFF @See below
[2018-11-13 05:26] LABS: ADD MAN DIFF? YES
[2018-11-13] MEDS: PANTOPRAZOLE 40 MG INJ IV ×2 (05:32→17:53)
[2018-11-13] MEDS ORDERED: SOD CHLORIDE 0.9% 1,000 ML IV (06:00)
[2018-11-13] MEDS: SOD CHLORIDE 0.9% 500 ML IV (06:21)
[2018-11-13] MEDS: COLLAGENASE 5 GM (UD JAR) TOP (08:18)
[2018-11-13] MEDS: BALSAM PERU/CASTOR OIL 60 GM TUBE TOP ×2 (08:19→21:12)
[2018-11-13] MEDS: MUPIROCIN 2% 22 GM OINT TOP ×2 (08:19→20:49)
[2018-11-13] MEDS: FLUTICASONE/VILANTEROL 200-25 INH DEVICE INH (08:19)
[2018-11-13] MEDS: INSULIN ASPART [NOVOLOG] 3 ML PEN SC ×4 (08:36→20:52)
[2018-11-13] MEDS: SOD CHLORIDE 0.9% 1,000 ML IV (08:37)
[2018-11-13] MEDS: ENOXAPARIN 40 MG/0.4 ML SYG SC (08:40)
[2018-11-13] MEDS: MULTIVITAMINS THERAPEUTIC TAB PO (08:48)
[2018-11-13 12:39] LABS: ANISOCYTOSIS 2+ (0-0); BAND NEUTROPHILS #M 2.5 10^3/ul (0.0-0.6); BAND NEUTROPHILS % (M) 25 % (0-4); GIANT THROMBO% (M) 6 % (0-0); LYMPHOCYTES #M 0.2 10^3/ul (0.8-2.9); LYMPHOCYTES % (M) 2 % (15-51); MONOCYTE #M 0.2 10^3/ul (0.3-0.9); MONOCYTES % (M) 2 % (0-11); PLATELET ESTIMATE NORMAL; POIKILOCYTOSIS 1+ (0-0); POLYCHROMASIA 3+ (0-0); SEG NEUT #M 7.5 10^3/ul (1.6-7.5); SEGMENTED NEUTROPHILS (M) % 71 % (39-77); SMUDGE%M 14 % (0-0)
[2018-11-13] MEDS: ACCU-CHEK XX ×3 (13:06→21:12)
[2018-11-13] MEDS ORDERED: VANCOMYCIN IV PER PHARMACY XX (13:30)
[2018-11-13] MEDS: VANCOMYCIN 1 GM 250 ML IVPB (14:34)
[2018-11-13] MEDS: FLUCONAZOLE 100 MG/50 ML (PMX) 50 ML IVPB (15:30)
[2018-11-13] MEDS: LORAZEPAM 2 MG INJ IV (17:33)
[2018-11-13 20:18] LABS: HEMOGLOBIN 6.2 g/dl (12.0-16.0)
[2018-11-13] MEDS: PHENYLephrine 80 MG in DEXTROSE 5% 242 ML IV (21:44)
[2018-11-14] MEDS: METHADONE (1 MG/ML 5 ML PO UD SYG) SL ×6 (00:46→21:29)
[2018-11-14] MEDS: LORAZEPAM 2 MG INJ IV ×3 (00:46→17:51)
[2018-11-14] MEDS: ACCU-CHEK XX ×6 (01:07→21:30)
[2018-11-14 01:11] LABS: HEMATOCRIT 22.8 % (37.0-47.0); HEMOGLOBIN 7.2 g/dl (12.0-16.0)
[2018-11-14] MEDS: LEVALBUTEROL (NEB) 0.63 MG/3 ML AMP HHN ×6 (01:26→20:01)
[2018-11-14] MEDS: MEROPENEM 1 GM/50ML(PMX) 50 ML IVPB ×3 (02:17→17:39)
[2018-11-14 02:55] LABS: IMMEDIATE SPIN CROSSMATCH 1 2
[2018-11-14] MEDS: SOD CHLORIDE 0.9% 1,000 ML IV (04:30)
[2018-11-14] MEDS: PANTOPRAZOLE 40 MG INJ IV ×2 (05:15→17:39)
[2018-11-14 06:10] LABS: ADD MAN DIFF? NO
[2018-11-14 06:11] LABS: BASOPHILS % 0.5 % (0.0-2.0); EOSINOPHILS # 0.2 10^3/ul (0.0-0.5); EOSINOPHILS % 2.8 % (0.0-7.0); LYMPHOCYTES # 1.4 10^3/ul (0.8-2.9); LYMPHOCYTES % 17.2 % (15.0-51.0); MEAN CORPUSCULAR HEMOGLOBIN 29.6 pg (29.0-33.0); MEAN CORPUSCULAR HGB CONC 32.1 g/dl (32.0-37.0); MEAN CORPUSCULAR VOLUME 92.1 fl (82.0-101.0); MEAN PLATELET VOLUME 10.9 fl (7.4-10.4); MONOCYTE # 0.4 10^3/ul (0.3-0.9); MONOCYTES % 5.4 % (0.0-11.0); NEUTROPHIL # 5.8 10^3/ul (1.6-7.5); NEUTROPHILS % 73.7 % (39.0-77.0); PLATELET COUNT 135 10^3/UL (140-415); RED BLOOD COUNT 3.04 10^6/ul (4.20-5.40); RED CELL DISTRIBUTION WIDTH 16.4 % (11.5-14.5)
[2018-11-14 06:11] LABS: WHITE BLOOD COUNT 7.9 10^3/ul (4.8-10.8)
[2018-11-14 06:46] LABS: BLOOD UREA NITROGEN 16 mg/dl (7-20); CALCIUM 7.1 mg/dl (8.4-10.2); CARBON DIOXIDE 34 mmol/L (21-31); CHLORIDE 103 mmol/L (97-110); CREATININE 0.45 mg/dl (0.44-1.00); Estimated GFR > 60 mL/min (>60); GLUCOSE 129 mg/dl (70-220); MAGNESIUM 1.7 mg/dl (1.7-2.5); PHOSPHORUS 2.9 mg/dl (2.5-4.9); POTASSIUM 3.9 mmol/L (3.5-5.1); SODIUM 136 mmol/L (135-144)
[2018-11-14 07:07] LABS: ANION GAP 0 (5-13)
[2018-11-14] MEDS: INSULIN ASPART [NOVOLOG] 3 ML PEN SC ×4 (07:35→21:00)
[2018-11-14] MEDS: MUPIROCIN 2% 22 GM OINT TOP ×2 (08:02→21:29)
[2018-11-14] MEDS: FLUTICASONE/VILANTEROL 200-25 INH DEVICE INH (08:02)
[2018-11-14] MEDS: MULTIVITAMINS THERAPEUTIC TAB PO (08:02)
[2018-11-14] MEDS: BALSAM PERU/CASTOR OIL 60 GM TUBE TOP ×2 (08:03→21:29)
[2018-11-14] MEDS: COLLAGENASE 5 GM (UD JAR) TOP (08:03)
[2018-11-14] MEDS: ENOXAPARIN 40 MG/0.4 ML SYG SC (08:05)
[2018-11-14] MEDS: MAGNESIUM SULFATE 1 GM/D5W 100 ML IVPB (11:00)
[2018-11-14 11:18] LABS: HEMATOCRIT 28.1 % (37.0-47.0)
[2018-11-14] MEDS: FLUCONAZOLE 100 MG/50 ML (PMX) 50 ML IVPB (12:48)
[2018-11-14] MEDS: TPN 1,000 ML IV (12:49)
[2018-11-14] MEDS: VANCOMYCIN 500 MG (PMX) 100 ML IVPB (14:33)
[2018-11-14] MEDS: HYDROmorphONE 0.5 MG/0.5 ML SYG IV (14:46)
[2018-11-14 19:01] LABS: HEMATOCRIT 28.8 % (37.0-47.0); HEMOGLOBIN 9.1 g/dl (12.0-16.0)
[2018-11-15] MEDS: LORAZEPAM 2 MG INJ IV (00:15)
[2018-11-15] MEDS: LEVALBUTEROL (NEB) 0.63 MG/3 ML AMP HHN ×6 (01:00→20:29)
[2018-11-15] MEDS: METHADONE (1 MG/ML 5 ML PO UD SYG) SL ×6 (01:22→20:55)
[2018-11-15] MEDS: ACCU-CHEK XX ×6 (01:23→21:00)
[2018-11-15 01:36] LABS: HEMATOCRIT 30.6 % (37.0-47.0); HEMOGLOBIN 9.3 g/dl (12.0-16.0)
[2018-11-15] MEDS: SOD CHLORIDE 0.9% 500 ML IV (03:29)
[2018-11-15] MEDS: MEROPENEM 1 GM/50ML(PMX) 50 ML IVPB ×3 (03:30→17:29)
[2018-11-15 03:57] LABS: AADO2 Arterial 424.1 mmHg (7.0-24.0); Allen Test ACCEPTAB; Arterial Base Excess 2.2 mmol/L (-3.0-3); Arterial Blood Gas Oxygen Sat 96.7 mmHG (95.0-98.0); Arterial COHb 0.3 % (0.0-3.0); Arterial HCO3 28.8 mmol/L (22.0-26.0); Arterial MetHb 0.4 % (0.0-1.5); Arterial pCO2 54.7 mmhg (35-45); MODE HFNC; Site Right Radial
[2018-11-15] MEDS: IODIXANOL LOCM 100 ML BTL (04:28)
[2018-11-15] MEDS: SOD CHLORIDE 0.9% 100 ML (04:29)
[2018-11-15] MEDS: SOD CHLORIDE 0.9% 1,000 ML IV (04:51)
[2018-11-15] MEDS: TPN 1,000 ML IV ×2 (04:54→21:07)
[2018-11-15] MEDS: HYDROmorphONE 0.5 MG/0.5 ML SYG IV ×2 (06:09→16:04)
[2018-11-15] MEDS: PANTOPRAZOLE 40 MG INJ IV ×2 (06:09→17:29)
[2018-11-15] MEDS: INSULIN ASPART [NOVOLOG] 3 ML PEN SC ×4 (07:55→21:00)
[2018-11-15] MEDS: MULTIVITAMINS THERAPEUTIC TAB PO (08:53)
[2018-11-15] MEDS: COLLAGENASE 5 GM (UD JAR) TOP (09:00)
[2018-11-15] MEDS: BALSAM PERU/CASTOR OIL 60 GM TUBE TOP ×2 (09:59→20:55)
[2018-11-15] MEDS: FLUTICASONE/VILANTEROL 200-25 INH DEVICE INH (09:59)
[2018-11-15] MEDS: MUPIROCIN 2% 22 GM OINT TOP ×2 (09:59→20:55)
[2018-11-15] MEDS: FLUCONAZOLE 100 MG/50 ML (PMX) 50 ML IVPB (12:50)
[2018-11-15] MEDS: VANCOMYCIN 500 MG (PMX) 100 ML IVPB (15:02)
[2018-11-16] MEDS: METHADONE (1 MG/ML 5 ML PO UD SYG) SL ×6 (00:47→21:00)
[2018-11-16] MEDS: HYDROmorphONE 0.5 MG/0.5 ML SYG IV ×3 (00:48→23:20)
[2018-11-16] MEDS: ACCU-CHEK XX ×6 (01:00→20:58)
[2018-11-16] MEDS: LEVALBUTEROL (NEB) 0.63 MG/3 ML AMP HHN ×5 (01:28→20:13)
[2018-11-16] MEDS: MEROPENEM 1 GM/50ML(PMX) 50 ML IVPB ×3 (02:40→18:31)
[2018-11-16] MEDS: PANTOPRAZOLE 40 MG INJ IV ×2 (06:06→18:31)
[2018-11-16 07:20] LABS: ADD MAN DIFF? NO
[2018-11-16 07:22] LABS: WHITE BLOOD COUNT 9.8 10^3/ul (4.8-10.8)
[2018-11-16 07:22] LABS: BASOPHIL # 0.1 10^3/ul (0.0-0.1); BASOPHILS % 0.8 % (0.0-2.0); EOSINOPHILS # 0.8 10^3/ul (0.0-0.5); EOSINOPHILS % 7.6 % (0.0-7.0); HEMATOCRIT 33.9 % (37.0-47.0); HEMOGLOBIN 10.7 g/dl (12.0-16.0); LYMPHOCYTES % 20.1 % (15.0-51.0); MEAN CORPUSCULAR HEMOGLOBIN 29.1 pg (29.0-33.0); MEAN CORPUSCULAR HGB CONC 31.6 g/dl (32.0-37.0); MEAN CORPUSCULAR VOLUME 92.1 fl (82.0-101.0); MEAN PLATELET VOLUME 12.1 fl (7.4-10.4); MONOCYTE # 0.7 10^3/ul (0.3-0.9); MONOCYTES % 6.7 % (0.0-11.0); NEUTROPHIL # 6.3 10^3/ul (1.6-7.5); NEUTROPHILS % 64.2 % (39.0-77.0); PLATELET COUNT 154 10^3/UL (140-415); RED BLOOD COUNT 3.68 10^6/ul (4.20-5.40); RED CELL DISTRIBUTION WIDTH 16.5 % (11.5-14.5)
[2018-11-16 07:41] LABS: PHOSPHORUS 2.2 mg/dl (2.5-4.9)
[2018-11-16 07:41] LABS: ANION GAP 2 (5-13); BLOOD UREA NITROGEN 12 mg/dl (7-20); CALCIUM 7.1 mg/dl (8.4-10.2); CARBON DIOXIDE 37 mmol/L (21-31); CHLORIDE 96 mmol/L (97-110); Estimated GFR > 60 mL/min (>60); GLUCOSE 119 mg/dl (70-220); MAGNESIUM 1.7 mg/dl (1.7-2.5); POTASSIUM 3.9 mmol/L (3.5-5.1); SODIUM 135 mmol/L (135-144)
[2018-11-16 07:48] LABS: PREALBUMIN 4.6 mg/dl (17.6-36.0)
[2018-11-16] MEDS: INSULIN ASPART [NOVOLOG] 3 ML PEN SC ×4 (07:55→20:58)
[2018-11-16] MEDS: MULTIVITAMINS THERAPEUTIC TAB PO (09:00)
[2018-11-16] MEDS: FLUTICASONE/VILANTEROL 200-25 INH DEVICE INH (09:49)
[2018-11-16] MEDS: MUPIROCIN 2% 22 GM OINT TOP (09:49)
[2018-11-16] MEDS: ONDANSETRON 4 MG INJ IV (09:49)
[2018-11-16] MEDS: COLLAGENASE 5 GM (UD JAR) TOP (13:12)
[2018-11-16] MEDS: BALSAM PERU/CASTOR OIL 60 GM TUBE TOP ×2 (13:12→21:00)
[2018-11-16] MEDS: POTASSIUM PHOSPHATE 30 MM in SOD CHLORIDE 0.9% 500 ML IVPB (13:23)
[2018-11-16] MEDS: FLUCONAZOLE 100 MG/50 ML (PMX) 50 ML IVPB (13:30)
[2018-11-16] MEDS: VANCOMYCIN 500 MG (PMX) 100 ML IVPB (14:57)
[2018-11-16 14:59] LABS: VANCOMYCIN,TROUGH < 5.0 ug/ml (10.0-20.0)
[2018-11-16] MEDS: TPN 1,000 ML IV (15:51)
[2018-11-16] MEDS: LORAZEPAM 2 MG INJ IV (21:13)
[2018-11-17] MEDS: ACCU-CHEK XX ×6 (00:50→20:55)
[2018-11-17] MEDS: LEVALBUTEROL (NEB) 0.63 MG/3 ML AMP HHN ×6 (01:00→20:31)
[2018-11-17] MEDS: METHADONE (1 MG/ML 5 ML PO UD SYG) SL ×6 (01:54→20:51)
[2018-11-17] MEDS: VANCOMYCIN 500 MG (PMX) 100 ML IVPB ×2 (01:56→14:30)
[2018-11-17] MEDS: MEROPENEM 1 GM/50ML(PMX) 50 ML IVPB ×3 (04:32→18:35)
[2018-11-17] MEDS: HYDROmorphONE 0.5 MG/0.5 ML SYG IV ×3 (04:39→19:37)
[2018-11-17] MEDS: PANTOPRAZOLE 40 MG INJ IV ×2 (06:54→18:35)
[2018-11-17 07:20] LABS: WHITE BLOOD COUNT 8.8 10^3/ul (4.8-10.8)
[2018-11-17 07:20] LABS: HEMATOCRIT 28.2 % (37.0-47.0); HEMOGLOBIN 8.6 g/dl (12.0-16.0); MEAN CORPUSCULAR HGB CONC 30.5 g/dl (32.0-37.0); MEAN CORPUSCULAR VOLUME 94.9 fl (82.0-101.0); MEAN PLATELET VOLUME 11.7 fl (7.4-10.4); PLATELET COUNT 135 10^3/UL (140-415); RED BLOOD COUNT 2.97 10^6/ul (4.20-5.40)
[2018-11-17 07:37] LABS: ADD MAN DIFF? YES; POSITIVE DIFF @See below
[2018-11-17 07:38] LABS: BLOOD UREA NITROGEN 11 mg/dl (7-20); CALCIUM 6.7 mg/dl (8.4-10.2); CARBON DIOXIDE 37 mmol/L (21-31); CHLORIDE 93 mmol/L (97-110); CREATININE 0.53 mg/dl (0.44-1.00); Estimated GFR > 60 mL/min (>60); POTASSIUM 5.4 mmol/L (3.5-5.1); SODIUM 129 mmol/L (135-144)
[2018-11-17 07:38] LABS: TRIGLYCERIDES 114 mg/dl (0-149)
[2018-11-17 07:46] LABS: ANION GAP 0 (5-13)
[2018-11-17 07:49] LABS: GLUCOSE 478 mg/dl (70-220)
[2018-11-17] MEDS: INSULIN ASPART [NOVOLOG] 3 ML PEN SC ×4 (07:55→20:55)
[2018-11-17] MEDS: MULTIVITAMINS THERAPEUTIC TAB PO (08:40)
[2018-11-17] MEDS: FLUTICASONE/VILANTEROL 200-25 INH DEVICE INH (08:41)
[2018-11-17] MEDS: COLLAGENASE 5 GM (UD JAR) TOP (08:42)
[2018-11-17 10:05] LABS: ANISOCYTOSIS 1+ (0-0); BAND NEUTROPHILS #M 1.1 10^3/ul (0.0-0.6); BAND NEUTROPHILS % (M) 13 % (0-4); BASOPHILS % (M) 1 % (0-2); EOSINOPHILS % (M) 6 % (0-7); LYMPHOCYTES #M 1.4 10^3/ul (0.8-2.9); LYMPHOCYTES % (M) 17 % (15-51); MONOCYTE #M 0.2 10^3/ul (0.3-0.9); MONOCYTES % (M) 3 % (0-11); PLATELET ESTIMATE NORMAL; POIKILOCYTOSIS 1+ (0-0); POLYCHROMASIA 3+ (0-0); SEG NEUT #M 5.4 10^3/ul (1.6-7.5); SEGMENTED NEUTROPHILS (M) % 60 % (39-77); SMUDGE%M 10 % (0-0)
[2018-11-17] MEDS: TPN 1,000 ML IV (10:16)
[2018-11-17] MEDS: BALSAM PERU/CASTOR OIL 60 GM TUBE TOP ×2 (10:25→20:51)
[2018-11-17 10:31] LABS: ANION GAP 0 (5-13); BLOOD UREA NITROGEN 12 mg/dl (7-20); CARBON DIOXIDE 40 mmol/L (21-31); CHLORIDE 94 mmol/L (97-110); CREATININE 0.43 mg/dl (0.44-1.00); Estimated GFR > 60 mL/min (>60); GLUCOSE 111 mg/dl (70-220); POTASSIUM 3.7 mmol/L (3.5-5.1); SODIUM 134 mmol/L (135-144)
[2018-11-17] MEDS: FLUCONAZOLE 100 MG/50 ML (PMX) 50 ML IVPB (13:15)
[2018-11-17] MEDS: LORAZEPAM 2 MG INJ IV (22:33)
[2018-11-18] MEDS: LEVALBUTEROL (NEB) 0.63 MG/3 ML AMP HHN ×6 (00:36→20:07)
[2018-11-18] MEDS: ACCU-CHEK XX ×6 (01:00→20:34)
[2018-11-18] MEDS: TPN 1,000 ML IV ×2 (01:13→15:50)
[2018-11-18] MEDS: HYDROmorphONE 0.5 MG/0.5 ML SYG IV ×3 (01:18→20:21)
[2018-11-18] MEDS: METHADONE (1 MG/ML 5 ML PO UD SYG) SL ×6 (02:37→20:33)
[2018-11-18] MEDS: VANCOMYCIN 500 MG (PMX) 100 ML IVPB ×2 (02:38→14:22)
[2018-11-18] MEDS: MEROPENEM 1 GM/50ML(PMX) 50 ML IVPB ×3 (04:28→18:43)
[2018-11-18] MEDS: PANTOPRAZOLE 40 MG INJ IV ×2 (06:08→17:26)
[2018-11-18 07:21] LABS: WHITE BLOOD COUNT 8.3 10^3/ul (4.8-10.8)
[2018-11-18 07:21] LABS: HEMATOCRIT 28.2 % (37.0-47.0); HEMOGLOBIN 8.7 g/dl (12.0-16.0); MEAN CORPUSCULAR HEMOGLOBIN 28.6 pg (29.0-33.0); MEAN CORPUSCULAR HGB CONC 30.9 g/dl (32.0-37.0); MEAN CORPUSCULAR VOLUME 92.8 fl (82.0-101.0); MEAN PLATELET VOLUME 11.9 fl (7.4-10.4); PLATELET COUNT 151 10^3/UL (140-415); RED BLOOD COUNT 3.04 10^6/ul (4.20-5.40); RED CELL DISTRIBUTION WIDTH 15.8 % (11.5-14.5)
[2018-11-18 07:22] LABS: ADD MAN DIFF? YES; POSITIVE DIFF @See below
[2018-11-18 07:42] LABS: BLOOD UREA NITROGEN 12 mg/dl (7-20); CALCIUM 6.9 mg/dl (8.4-10.2); CHLORIDE 95 mmol/L (97-110); CREATININE 0.39 mg/dl (0.44-1.00); Estimated GFR > 60 mL/min (>60); GLUCOSE 105 mg/dl (70-220); POTASSIUM 3.6 mmol/L (3.5-5.1); SODIUM 135 mmol/L (135-144)
[2018-11-18 07:45] LABS: PHOSPHORUS 2.9 mg/dl (2.5-4.9)
[2018-11-18 07:45] LABS: MAGNESIUM 1.8 mg/dl (1.7-2.5)
[2018-11-18 07:49] LABS: ANION GAP 0 (5-13); CARBON DIOXIDE 40 mmol/L (21-31)
[2018-11-18] MEDS: INSULIN ASPART [NOVOLOG] 3 ML PEN SC ×4 (07:55→20:33)
[2018-11-18] MEDS: COLLAGENASE 5 GM (UD JAR) TOP (08:37)
[2018-11-18] MEDS: BALSAM PERU/CASTOR OIL 60 GM TUBE TOP ×2 (08:38→20:33)
[2018-11-18] MEDS: MULTIVITAMINS THERAPEUTIC TAB PO (08:38)
[2018-11-18] MEDS: FLUTICASONE/VILANTEROL 200-25 INH DEVICE INH (08:39)
[2018-11-18 10:31] LABS: ANISOCYTOSIS 1+ (0-0); BAND NEUTROPHILS % (M) 13 % (0-4); BASOPHILS % (M) 1 % (0-2); EOSINOPHILS % (M) 17 % (0-7); LYMPHOCYTES #M 0.6 10^3/ul (0.8-2.9); LYMPHOCYTES % (M) 8 % (15-51); MONOCYTE #M 0.1 10^3/ul (0.3-0.9); MONOCYTES % (M) 2 % (0-11); PLATELET ESTIMATE NORMAL; POLYCHROMASIA 1+ (0-0); REACTIVE LYMPHOCYTES #M 0.1 10^3/ul (0.0-0.0); REACTIVE LYMPHOCYTES% (M) 2 % (0-0); SEG NEUT #M 4.8 10^3/ul (1.6-7.5); SEGMENTED NEUTROPHILS (M) % 57 % (39-77); SMUDGE%M 24 % (0-0)
[2018-11-18] MEDS: FLUCONAZOLE 100 MG/50 ML (PMX) 50 ML IVPB (13:45)
[2018-11-18 14:21] LABS: VANCOMYCIN,TROUGH 7.9 ug/ml (10.0-20.0)
[2018-11-18] MEDS: ENOXAPARIN 100 MG/ML SYG SC (20:42)
[2018-11-19] MEDS: METHADONE (1 MG/ML 5 ML PO UD SYG) SL ×6 (00:58→21:55)
[2018-11-19] MEDS: LORAZEPAM 2 MG INJ IV (00:58)
[2018-11-19] MEDS: LEVALBUTEROL (NEB) 0.63 MG/3 ML AMP HHN ×6 (01:00→20:05)
[2018-11-19] MEDS: ACCU-CHEK XX ×6 (01:15→21:53)
[2018-11-19] MEDS: MEROPENEM 1 GM/50ML(PMX) 50 ML IVPB ×3 (01:56→17:53)
[2018-11-19] MEDS: VANCOMYCIN 750 MG (PMX) 250 ML IVPB ×2 (02:29→14:08)
[2018-11-19] MEDS: HYDROmorphONE 0.5 MG/0.5 ML SYG IV ×2 (02:30→10:26)
[2018-11-19] MEDS: PANTOPRAZOLE 40 MG INJ IV ×2 (05:27→17:36)
[2018-11-19] MEDS: INSULIN ASPART [NOVOLOG] 3 ML PEN SC ×4 (07:55→21:00)
[2018-11-19] MEDS: FLUTICASONE/VILANTEROL 200-25 INH DEVICE INH (08:45)
[2018-11-19] MEDS: MULTIVITAMINS THERAPEUTIC TAB PO (08:45)
[2018-11-19] MEDS: COLLAGENASE 5 GM (UD JAR) TOP (08:45)
[2018-11-19] MEDS: BALSAM PERU/CASTOR OIL 60 GM TUBE TOP ×2 (08:45→21:55)
[2018-11-19] MEDS: ENOXAPARIN 100 MG/ML SYG SC ×2 (08:55→22:02)
[2018-11-19] MEDS: TPN 1,000 ML IV (09:03)
[2018-11-19 10:33] LABS: ADD MAN DIFF? NO
[2018-11-19 10:40] LABS: BASOPHILS % 0.4 % (0.0-2.0); EOSINOPHILS # 0.9 10^3/ul (0.0-0.5); HEMATOCRIT 28.3 % (37.0-47.0); HEMOGLOBIN 8.6 g/dl (12.0-16.0); LYMPHOCYTES # 1.5 10^3/ul (0.8-2.9); MEAN CORPUSCULAR HEMOGLOBIN 28.8 pg (29.0-33.0); MEAN CORPUSCULAR HGB CONC 30.4 g/dl (32.0-37.0); MEAN CORPUSCULAR VOLUME 94.6 fl (82.0-101.0); MEAN PLATELET VOLUME 11.6 fl (7.4-10.4); MONOCYTE # 0.6 10^3/ul (0.3-0.9); MONOCYTES % 6.2 % (0.0-11.0); NEUTROPHIL # 6.1 10^3/ul (1.6-7.5); NEUTROPHILS % 66.6 % (39.0-77.0); PLATELET COUNT 195 10^3/UL (140-415); RED BLOOD COUNT 2.99 10^6/ul (4.20-5.40); RED CELL DISTRIBUTION WIDTH 15.8 % (11.5-14.5)
[2018-11-19 10:40] LABS: WHITE BLOOD COUNT 9.2 10^3/ul (4.8-10.8)
[2018-11-19 11:02] LABS: ALKALINE PHOSPHATASE 74 IU/L (42-121)
[2018-11-19 11:04] LABS: ANION GAP 1 (5-13); BLOOD UREA NITROGEN 11 mg/dl (7-20); CARBON DIOXIDE 37 mmol/L (21-31); CHLORIDE 94 mmol/L (97-110); CREATININE 0.41 mg/dl (0.44-1.00); Estimated GFR > 60 mL/min (>60); GLUCOSE 147 mg/dl (70-220); POTASSIUM 3.2 mmol/L (3.5-5.1); SODIUM 132 mmol/L (135-144)
[2018-11-19] MEDS: POTASSIUM CHLORIDE 20 MEQ POWDER FOR ORAL SOLN PO (12:37)
[2018-11-19] MEDS: ONDANSETRON 4 MG INJ IV (12:45)
[2018-11-19] MEDS: FLUCONAZOLE 100 MG/50 ML (PMX) 50 ML IVPB (13:03)
[2018-11-19] MEDS: GLUCOSE GEL 15 GRAM TUBE PO (22:14)
[2018-11-19] MEDS: DEXTROSE 50% 50 ML SYRINGE IV (22:51)
[2018-11-20] MEDS: ACCU-CHEK XX ×6 (00:48→21:29)
[2018-11-20] MEDS: METHADONE (1 MG/ML 5 ML PO UD SYG) SL ×6 (00:48→20:56)
[2018-11-20] MEDS: LEVALBUTEROL (NEB) 0.63 MG/3 ML AMP HHN ×6 (01:00→21:00)
[2018-11-20] MEDS: VANCOMYCIN 750 MG (PMX) 250 ML IVPB ×2 (02:43→14:54)
[2018-11-20] MEDS: HYDROmorphONE 0.5 MG/0.5 ML SYG IV ×3 (02:43→14:49)
[2018-11-20] MEDS: MEROPENEM 1 GM/50ML(PMX) 50 ML IVPB ×3 (02:43→17:03)
[2018-11-20] MEDS: PANTOPRAZOLE 40 MG INJ IV ×2 (05:50→17:03)
[2018-11-20] MEDS: GLUCOSE GEL 15 GRAM TUBE PO (06:27)
[2018-11-20] MEDS: DEXTROSE 50% 50 ML SYRINGE IV (06:50)
[2018-11-20 07:10] LABS: ADD MAN DIFF? NO
[2018-11-20 07:17] LABS: BASOPHIL # 0.1 10^3/ul (0.0-0.1); BASOPHILS % 0.6 % (0.0-2.0); EOSINOPHILS # 0.8 10^3/ul (0.0-0.5); EOSINOPHILS % 8.9 % (0.0-7.0); HEMATOCRIT 27.6 % (37.0-47.0); HEMOGLOBIN 8.5 g/dl (12.0-16.0); LYMPHOCYTES # 1.6 10^3/ul (0.8-2.9); LYMPHOCYTES % 17.7 % (15.0-51.0); MEAN CORPUSCULAR HEMOGLOBIN 29.2 pg (29.0-33.0); MEAN CORPUSCULAR HGB CONC 30.8 g/dl (32.0-37.0); MEAN CORPUSCULAR VOLUME 94.8 fl (82.0-101.0); MONOCYTE # 0.6 10^3/ul (0.3-0.9); MONOCYTES % 6.4 % (0.0-11.0); NEUTROPHIL # 5.8 10^3/ul (1.6-7.5); NEUTROPHILS % 65.6 % (39.0-77.0); PLATELET COUNT 217 10^3/UL (140-415); RED BLOOD COUNT 2.91 10^6/ul (4.20-5.40); RED CELL DISTRIBUTION WIDTH 15.8 % (11.5-14.5)
[2018-11-20 07:17] LABS: WHITE BLOOD COUNT 8.9 10^3/ul (4.8-10.8)
[2018-11-20 07:29] LABS: MAGNESIUM 1.5 mg/dl (1.7-2.5)
[2018-11-20 07:29] LABS: PHOSPHORUS 2.6 mg/dl (2.5-4.9)
[2018-11-20 07:31] LABS: ANION GAP -1 (5-13); BLOOD UREA NITROGEN 6 mg/dl (7-20); CALCIUM 7.1 mg/dl (8.4-10.2); CARBON DIOXIDE 39 mmol/L (21-31); CHLORIDE 95 mmol/L (97-110); CREATININE 0.41 mg/dl (0.44-1.00); Estimated GFR > 60 mL/min (>60); GLUCOSE 78 mg/dl (70-220); POTASSIUM 3.8 mmol/L (3.5-5.1); SODIUM 133 mmol/L (135-144)
[2018-11-20] MEDS: MULTIVITAMINS THERAPEUTIC TAB PO (07:57)
[2018-11-20] MEDS: COLLAGENASE 5 GM (UD JAR) TOP (07:57)
[2018-11-20] MEDS: FLUTICASONE/VILANTEROL 200-25 INH DEVICE INH (08:04)
[2018-11-20] MEDS: BALSAM PERU/CASTOR OIL 60 GM TUBE TOP ×2 (08:06→20:57)
[2018-11-20 08:17] LABS: SODIUM,URINE RANDOM 93 mmol/L (30-90)
[2018-11-20] MEDS: MAGNESIUM SULFATE 2 GM/50 ML 50 ML IVPB (08:25)
[2018-11-20 08:51] LABS: OSMOLALITY,URINE 245 mOsm/kg (250-1200)
[2018-11-20] MEDS: INSULIN ASPART [NOVOLOG] 3 ML PEN SC ×4 (08:54→21:00)
[2018-11-20] MEDS: ENOXAPARIN 100 MG/ML SYG SC ×2 (08:55→21:29)
[2018-11-20] MEDS: FLUCONAZOLE 100 MG/50 ML (PMX) 50 ML IVPB (13:10)
[2018-11-20] MEDS: LORAZEPAM 2 MG INJ IV (20:57)
[2018-11-21] MEDS: LEVALBUTEROL (NEB) 0.63 MG/3 ML AMP HHN ×6 (01:00→21:00)
[2018-11-21] MEDS: METHADONE (1 MG/ML 5 ML PO UD SYG) SL ×6 (01:10→21:26)
[2018-11-21] MEDS: ACCU-CHEK XX ×6 (01:10→21:29)
[2018-11-21] MEDS: MEROPENEM 1 GM/50ML(PMX) 50 ML IVPB ×2 (01:42→10:50)
[2018-11-21 01:57] LABS: VANCOMYCIN,TROUGH 15.7 ug/ml (10.0-20.0)
[2018-11-21] MEDS: HYDROmorphONE 0.5 MG/0.5 ML SYG IV ×2 (02:13→14:23)
[2018-11-21] MEDS: VANCOMYCIN 750 MG (PMX) 250 ML IVPB (02:13)
[2018-11-21] MEDS: PANTOPRAZOLE 40 MG INJ IV ×2 (05:20→17:39)
[2018-11-21] MEDS: INSULIN ASPART [NOVOLOG] 3 ML PEN SC ×4 (07:55→21:00)
[2018-11-21] MEDS: FLUTICASONE/VILANTEROL 200-25 INH DEVICE INH (08:26)
[2018-11-21] MEDS: COLLAGENASE 5 GM (UD JAR) TOP (08:26)
[2018-11-21] MEDS: MULTIVITAMINS THERAPEUTIC TAB PO (08:26)
[2018-11-21] MEDS: BALSAM PERU/CASTOR OIL 60 GM TUBE TOP ×2 (08:27→21:29)
[2018-11-21] MEDS: ENOXAPARIN 100 MG/ML SYG SC ×2 (08:32→22:05)
[2018-11-21] MEDS: FLUCONAZOLE 100 MG/50 ML (PMX) 50 ML IVPB (14:09)
[2018-11-21 16:26] LABS: ADD MAN DIFF? NO
[2018-11-21 16:29] LABS: BASOPHIL # 0.1 10^3/ul (0.0-0.1); BASOPHILS % 0.6 % (0.0-2.0); EOSINOPHILS # 0.6 10^3/ul (0.0-0.5); EOSINOPHILS % 6.3 % (0.0-7.0); HEMATOCRIT 28.6 % (37.0-47.0); HEMOGLOBIN 8.7 g/dl (12.0-16.0); LYMPHOCYTES # 1.6 10^3/ul (0.8-2.9); LYMPHOCYTES % 16.6 % (15.0-51.0); MEAN CORPUSCULAR HEMOGLOBIN 28.5 pg (29.0-33.0); MEAN CORPUSCULAR HGB CONC 30.4 g/dl (32.0-37.0); MEAN CORPUSCULAR VOLUME 93.8 fl (82.0-101.0); MONOCYTE # 0.5 10^3/ul (0.3-0.9); NEUTROPHIL # 6.6 10^3/ul (1.6-7.5); NEUTROPHILS % 70.5 % (39.0-77.0); PLATELET COUNT 212 10^3/UL (140-415); RED BLOOD COUNT 3.05 10^6/ul (4.20-5.40); RED CELL DISTRIBUTION WIDTH 15.9 % (11.5-14.5)
[2018-11-21 16:29] LABS: WHITE BLOOD COUNT 9.4 10^3/ul (4.8-10.8)
[2018-11-21 16:47] LABS: BLOOD UREA NITROGEN 6 mg/dl (7-20); CALCIUM 7.1 mg/dl (8.4-10.2); CHLORIDE 91 mmol/L (97-110); CREATININE 0.38 mg/dl (0.44-1.00); Estimated GFR > 60 mL/min (>60); GLUCOSE 102 mg/dl (70-220); POTASSIUM 3.5 mmol/L (3.5-5.1); SODIUM 131 mmol/L (135-144)
[2018-11-21 16:59] LABS: ANION GAP -1 (5-13)
[2018-11-21 17:00] LABS: CARBON DIOXIDE 41 mmol/L (21-31)
[2018-11-21 19:29] LABS: AADO2 Arterial 37.3 mmHg (7.0-24.0); Allen Test ACCEPTAB; Arterial Base Excess 10.6 mmol/L (-3.0-3); Arterial Blood Gas Oxygen Sat 97.4 mmHG (95.0-98.0); Arterial COHb 0 % (0.0-3.0); Arterial MetHb 0.4 % (0.0-1.5); Arterial pCO2 53.9 mmhg (35-45); MODE NASAL CANNULA; Site Right Radial
[2018-11-22] MEDS: LEVALBUTEROL (NEB) 0.63 MG/3 ML AMP HHN ×6 (01:00→20:28)
[2018-11-22] MEDS: ACCU-CHEK XX ×6 (01:00→20:16)
[2018-11-22] MEDS: METHADONE (1 MG/ML 5 ML PO UD SYG) SL ×6 (01:50→20:12)
[2018-11-22] MEDS: HYDROmorphONE 0.5 MG/0.5 ML SYG IV ×5 (02:19→21:14)
[2018-11-22] MEDS: PANTOPRAZOLE 40 MG INJ IV ×2 (06:27→17:09)
[2018-11-22] MEDS: INSULIN ASPART [NOVOLOG] 3 ML PEN SC ×4 (07:44→20:15)
[2018-11-22] MEDS: MULTIVITAMINS THERAPEUTIC TAB PO (08:13)
[2018-11-22] MEDS: COLLAGENASE 5 GM (UD JAR) TOP (08:13)
[2018-11-22] MEDS: SOD CHLORIDE 0.9% 1,000 ML IV (08:13)
[2018-11-22] MEDS: FLUTICASONE/VILANTEROL 200-25 INH DEVICE INH (08:14)
[2018-11-22] MEDS: BALSAM PERU/CASTOR OIL 60 GM TUBE TOP ×2 (08:15→20:15)
[2018-11-22] MEDS: ENOXAPARIN 100 MG/ML SYG SC (08:29)
[2018-11-22 10:06] LABS: MAGNESIUM 1.5 mg/dl (1.7-2.5)
[2018-11-22 10:06] LABS: PHOSPHORUS 3.1 mg/dl (2.5-4.9)
[2018-11-22] MEDS: MAGNESIUM SULFATE 2 GM/50 ML 50 ML IVPB (15:43)
[2018-11-22] MEDS: LORAZEPAM 2 MG INJ IV (18:20)
[2018-11-23] MEDS: ACCU-CHEK XX ×5 (00:17→17:47)
[2018-11-23] MEDS: METHADONE (1 MG/ML 5 ML PO UD SYG) SL ×5 (00:19→17:26)
[2018-11-23] MEDS: LORAZEPAM 2 MG INJ IV ×2 (00:20→14:00)
[2018-11-23] MEDS: LEVALBUTEROL (NEB) 0.63 MG/3 ML AMP HHN ×6 (01:00→20:09)
[2018-11-23] MEDS: SOD CHLORIDE 0.9% 1,000 ML IV ×2 (03:18→04:35)
[2018-11-23] MEDS: HYDROmorphONE 0.5 MG/0.5 ML SYG IV ×2 (04:31→09:01)
[2018-11-23] MEDS: PANTOPRAZOLE 40 MG INJ IV ×2 (06:17→18:11)
[2018-11-23] MEDS: INSULIN ASPART [NOVOLOG] 3 ML PEN SC ×3 (07:55→17:44)
[2018-11-23] MEDS: MULTIVITAMINS THERAPEUTIC TAB PO (08:56)
[2018-11-23] MEDS: FLUTICASONE/VILANTEROL 200-25 INH DEVICE INH (08:57)
[2018-11-23] MEDS: COLLAGENASE 5 GM (UD JAR) TOP (09:02)
[2018-11-23] MEDS: BALSAM PERU/CASTOR OIL 60 GM TUBE TOP (09:02)
[2018-11-23 11:09] LABS: HEMATOCRIT 30.1 % (37.0-47.0); HEMOGLOBIN 9.2 g/dl (12.0-16.0); MEAN CORPUSCULAR HEMOGLOBIN 28.4 pg (29.0-33.0); MEAN CORPUSCULAR HGB CONC 30.6 g/dl (32.0-37.0); MEAN CORPUSCULAR VOLUME 92.9 fl (82.0-101.0); MEAN PLATELET VOLUME 11.6 fl (7.4-10.4); PLATELET COUNT 336 10^3/UL (140-415); RED BLOOD COUNT 3.24 10^6/ul (4.20-5.40)
[2018-11-23 11:09] LABS: WHITE BLOOD COUNT 11.9 10^3/ul (4.8-10.8)
[2018-11-23 11:11] LABS: ADD MAN DIFF? YES; POSITIVE DIFF @See below
[2018-11-23 11:24] LABS: ANION GAP 4 (5-13); BLOOD UREA NITROGEN 7 mg/dl (7-20); CALCIUM 7.3 mg/dl (8.4-10.2); CARBON DIOXIDE 35 mmol/L (21-31); CHLORIDE 93 mmol/L (97-110); CREATININE 0.47 mg/dl (0.44-1.00); Estimated GFR > 60 mL/min (>60); GLUCOSE 100 mg/dl (70-220); MAGNESIUM 1.9 mg/dl (1.7-2.5); PHOSPHORUS 3.3 mg/dl (2.5-4.9); POTASSIUM 3.4 mmol/L (3.5-5.1); SODIUM 132 mmol/L (135-144)
[2018-11-23 12:50] LABS: ANISOCYTOSIS 1+ (0-0); BAND NEUTROPHILS % (M) 26 % (0-4); EOSINOPHILS % (M) 1 % (0-7); GIANT THROMBO% (M) 1 % (0-0); LYMPHOCYTES #M 0.4 10^3/ul (0.8-2.9); LYMPHOCYTES % (M) 4 % (15-51); MONOCYTE #M 0.4 10^3/ul (0.3-0.9); MONOCYTES % (M) 4 % (0-11); PLATELET ESTIMATE NORMAL; POIKILOCYTOSIS 1+ (0-0); POLYCHROMASIA 2+ (0-0); REACTIVE LYMPHOCYTES #M 0.3 10^3/ul (0.0-0.0); REACTIVE LYMPHOCYTES% (M) 3 % (0-0); SEG NEUT #M 7.7 10^3/ul (1.6-7.5); SEGMENTED NEUTROPHILS (M) % 62 % (39-77); SMUDGE%M 18 % (0-0); TARGET CELLS 1+ (0-0)
[2018-11-23] MEDS: METOPROLOL 25 MG TAB PO (12:51)
== END 2018-11-23 20:15 | DRG 853 ==
LOC: 2NE 11-02 23:59 → TEL 11-04 10:27 → ICU 11-13 00:10 → TEL 10-30 22:13 → E/R 00:42 → TEL 03:32 → ICU 08:58
PROVIDERS: Internal Medicine
PROC: 0DTF0ZZ Resection of Right Large Intestine, Open Approach (ICD-10-PCS; principal; 2018-11-12 20:30)
PROC: 0W9J4ZZ Drainage of Pelvic Cavity, Percutaneous Endoscopic Approach (ICD-10-PCS; 2018-11-12 20:30)
PROC: 0DBB0ZZ Excision of Ileum, Open Approach (ICD-10-PCS; 2018-11-12 20:30)
PROC: 0W9G4ZZ Drainage of Peritoneal Cavity, Percutaneous Endoscopic Approach (ICD-10-PCS; 2018-11-12 20:30)
PROC: 5A09457 Assistance with Respiratory Ventilation, 24-96 Consecutive Hours, Continuous Positive Airway Pressure (ICD-10-PCS; 2018-11-12 21:06)
PROC: 30233N1 Transfusion of Nonautologous Red Blood Cells into Peripheral Vein, Percutaneous Approach (ICD-10-PCS; 2018-11-12 21:06)
PROC: 02HV33Z Insertion of Infusion Device into Superior Vena Cava, Percutaneous Approach (ICD-10-PCS; 2018-11-12 21:06)
DX: A41.9 Sepsis, unspecified organism (principal); J96.02 Acute respiratory failure with hypercapnia; I21.A1 Myocardial infarction type 2; N17.0 Acute kidney failure with tubular necrosis; K63.1 Perforation of intestine (nontraumatic); K65.1 Peritoneal abscess; G92 Toxic encephalopathy; R65.21 Severe sepsis with septic shock; J18.9 Pneumonia, unspecified organism; J96.01 Acute respiratory failure with hypoxia; J44.1 Chronic obstructive pulmonary disease with (acute) exacerbation; E87.0 Hyperosmolality and hypernatremia; E87.1 Hypo-osmolality and hyponatremia; F11.20 Opioid dependence, uncomplicated; K92.2 Gastrointestinal hemorrhage, unspecified; K56.609 Unspecified intestinal obstruction, unspecified as to partial versus complete obstruction; K56.0 Paralytic ileus; R64 Cachexia; Z68.1 Body mass index [BMI] 19.9 or less, adult; D64.9 Anemia, unspecified; R74.0 Nonspecific elevation of levels of transaminase and lactic acid dehydrogenase [LDH]; B19.20 Unspecified viral hepatitis C without hepatic coma; E86.0 Dehydration; E78.5 Hyperlipidemia, unspecified; F99 Mental disorder, not otherwise specified; G89.29 Other chronic pain; I27.20 Pulmonary hypertension, unspecified; K70.31 Alcoholic cirrhosis of liver with ascites; K52.9 Noninfective gastroenteritis and colitis, unspecified; K21.9 Gastro-esophageal reflux disease without esophagitis; L89.320 Pressure ulcer of left buttock, unstageable; L89.310 Pressure ulcer of right buttock, unstageable; L89.629 Pressure ulcer of left heel, unspecified stage; L89.619 Pressure ulcer of right heel, unspecified stage; N18.9 Chronic kidney disease, unspecified; Z66 Do not resuscitate; Z53.31 Laparoscopic surgical procedure converted to open procedure; Z86.711 Personal history of pulmonary embolism; Z79.01 Long term (current) use of anticoagulants
CPT/HCPCS: 36415; 36430; 36569; 36573; 36600; 71045; 71260; 71275; 74018; 74177; 74250; 76705; 76937; 80048; 80053; 80061; 80076; 80202; 80307; 81001; 81003; 82270; 82550; 82553; 82803; 82947; 82962; 83036; 83605; 83735; 83935; 84075; 84100; 84134; 84145; 84155; 84156; 84300; 84478; 84484; 85014; 85018; 85025; 85610; 85730; 86850; 86900; 86901; 86920; 87040-91; 87045; 87075; 87081; 87086; 88304; 89190; 92526; 92610; 93005; 93306; 94640; 94660; 96374; 96375; 97110; 97162; 97164; 97530; 99285-25